=== PATIENT | male | born 1945 | race Caucasian/White ===

== ENCOUNTER → 2018-09-16 | Outpatient (CLI) | payer MEDICARE | LOC: CARD 11:13 → EDUNIT# 11:30 | PROVIDERS: ATTEND Internal Medicine Cardiovascular Disease | DX: I48.91 Unspecified atrial fibrillation (principal); I10 Essential (primary) hypertension; K21.9 Gastro-esophageal reflux disease without esophagitis; I08.1 Rheumatic disorders of both mitral and tricuspid valves; Z82.49 Family history of ischemic heart disease and other diseases of the circulatory system | CPT/HCPCS: 93306 ==

== ENCOUNTER 2018-10-06 09:59 | Outpatient (CLI) | payer MEDICARE ==
[~2018-10-06] VITALS: Ht 172.7 cm; Wt 90.7 kg
[2018-10-06 10:09] VITALS: BP 154/89
[2018-10-06] MEDS ORDERED: LEFL20TA18 PO (10:52)
[2018-10-06 11:11] LABS: BASOPHILS # (AUTO) 0.1 10^3/uL (0.0-0.1); BASOPHILS % (AUTO) 1 % (0-10); EOSINOPHILS # (AUTO) 0.2 10^3/uL (0.0-0.3); EOSINOPHILS % (AUTO) 3 % (0-10); HEMATOCRIT 40 % (40-54); HEMOGLOBIN 12.6 G/DL (13.3-17.7); LYMPHOCYTES # (AUTO) 2.2 X 10^3 (1.0-4.0); LYMPHOCYTES % (AUTO) 27 % (12-44); MEAN CORPUSCULAR HEMOGLOBIN 25 PG (25-34); MEAN CORPUSCULAR HGB CONC 32 G/DL (32-36); MEAN CORPUSCULAR VOLUME 78 FL (80-99); MONOCYTES # (AUTO) 1.2 X 10^3 (0.0-1.0); MONOCYTES % (AUTO) 14 % (0-12); NEUTROPHILS # (AUTO) 4.7 X 10^3 (1.8-7.8); NEUTROPHILS % (AUTO) 56 % (42-75); PLATELET COUNT 220 10^3/uL (130-400); RED BLOOD COUNT 5.12 10^6/uL (4.35-5.85); RED CELL DISTRIBUTION WIDTH 15.7 % (10.0-14.5); WHITE BLOOD COUNT 8.4 10^3/uL (4.3-11.0)
[2018-10-07] MEDS ORDERED: AMLO1CAP9 PO (13:16)
[2018-10-07] MEDS ORDERED: APIX5TAB PO (13:16)
[2018-10-07] MEDS ORDERED: HYDR-3923 PO (13:16)
[2018-10-07] MEDS ORDERED: CHOL20003 PO (13:16)
[2018-10-07] MEDS ORDERED: HYDR-3820 PO (13:16)
[2018-10-07] MEDS ORDERED: FINA5TAB6 PO (13:16)
[2018-10-07] MEDS ORDERED: ALPR0.5T PO (13:16)
[2018-10-07] MEDS ORDERED: ABAT250V IV (13:16)
[2018-10-07] MEDS ORDERED: METO-387 PO (13:16)
[2018-10-07] MEDS ORDERED: DEXL60CA PO (13:16)
[2018-10-07] MEDS ORDERED: TAMS0.4C2 PO (13:16)
[2018-10-07] MEDS ORDERED: PRED5TAB PO (13:16)
[2018-10-07] MEDS ORDERED: NALO12.5 PO (14:03)
[2018-10-07] MEDS ORDERED: LATA2.5D5 OU (14:03)
== END 2018-10-06 10:55 | disposition home or self-care (01) ==
LOC: PREOP 09:59
PROVIDERS: ATTEND Orthopaedic Surgery Orthopaedic Surgery of the Spine
DX: Z01.812 Encounter for preprocedural laboratory examination (principal); Z11.2 Encounter for screening for other bacterial diseases; M96.0 Pseudarthrosis after fusion or arthrodesis; I10 Essential (primary) hypertension
CPT/HCPCS: 36415; 85025; 86850; 86900; 86901; 87081

== ENCOUNTER 2018-10-12 05:55 | Inpatient (IN) | payer MEDICARE ==
[~2018-10-12] VITALS: Ht 172.7 cm; Wt 90.7 kg
[~2018-10-12 05:55] MED LIST: ABAT250V IV; ALPR0.5T PO; AMLO1CAP9 PO; APIX5TAB PO; CHOL20003 PO; DEXL60CA PO; FINA5TAB6 PO; HYDR-3820 PO; HYDR-3923 PO; LATA2.5D5 OU; LEFL20TA18 PO; METO-387 PO; NALO12.5 PO; PRED5TAB PO; TAMS0.4C2 PO
[2018-10-12] MEDS: LACTATED RINGERS 1,000 ML IV PRN ×2 (06:25→08:45)
[2018-10-12] MEDS ORDERED: fentaNYL INJECTION 100 MCG/2 ML AMP ONE ×2 (06:30→14:50)
[2018-10-12] MEDS ORDERED: MIDAZOLAM 2 MG/2 ML (VERSED) VIAL ONE (06:30)
[2018-10-12] MEDS ORDERED: DEXMEDETOMIDINE 200 MCG/2 ML (PRECEDEX) VIAL IV ONE ×3 (06:34→11:13)
[2018-10-12] MEDS ORDERED: ACETAMINOPHEN 325 MG TABLET PO PRN (06:45)
[2018-10-12] MEDS ORDERED: HYDROcodone/APAP 10 MG/325 MG (LORTAB) TAB PO PRN (06:45)
[2018-10-12] MEDS ORDERED: MILK OF MAGNESIA 400 MG/5 ML 30 ML UDC PO PRN (06:45)
--- OUTSIDE RECORDS SUMMARY | 2018-10-12 06:46 | XMS REPORT | Continuity of Care Document ---
Author Author [facility] Organization [facility] Address Unknown Phone Unavailable Allergies There is no data. Medications There is no data. Problems There is no data. Procedures There is no data. Results There is no data. Encounters ACCT No. Visit Date/Time Discharge Status Pt. Type Provider Facility Loc./Unit Complaint [id number] 11/07/2014 14:18:41 11/07/2014 23:59:59 CLS Outpatient Donna Albrecht [id number] 02/03/2018 10:45:13 02/03/2018 23:59:59 DIS Outpatient Holley Aldrich [facility] [id number] 01/06/2018 08:37:26 01/06/2018 23:59:59 DIS Outpatient Holley Aldrich [facility] [id number] 05/27/2017 13:55:40 05/27/2017 23:59:59 DIS Outpatient Holley Aldrich [facility]
[2018-10-12] MEDS: MULTIVIT W/MINERALS TAB (THERAGRAN M) PO SCH (07:00)
[2018-10-12] MEDS ORDERED: NALOXEGOL OXALATE 12.5 MG PO PRN (07:00)
[2018-10-12] MEDS ORDERED: CLINDAMYCIN 600 MG/50 ML IVPB 50 ML IV ONE (07:00)
[2018-10-12] MEDS ORDERED: morphine INJ 10 MG/ML 1ML (SYR OR VIAL) IVP PRN (07:00)
[2018-10-12] MEDS ORDERED: GENTAMICIN 40 MG/ML 2 ML INJ SDV ONE (07:04)
[2018-10-12] MEDS ORDERED: VANCOMYCIN 1000 MG/VIAL ONE (07:04)
[2018-10-12] MEDS ORDERED: proPOfol 200 MG/20 ML (DIPRIVAN) VIAL IV ONE (08:29)
[2018-10-12] MEDS ORDERED: SUCCINYLCHOLINE INJ 100 MG/5 ML SYR ONE (08:29)
[2018-10-12] MEDS ORDERED: ROCURONIUM 10 MG/ML 5 ML SYRINGE IV ONE (08:29)
[2018-10-12] MEDS ORDERED: LIDOCAINE PF 2% 5 ML (XYLOCAINE) VIAL ONE (08:29)
[2018-10-12] MEDS ORDERED: ONDANSETRON 4 MG/2 ML (SDV) Z0FRAN ONE (08:29)
[2018-10-12] MEDS ORDERED: ISOFLURANE (FORANE) 15 ML/15 MIN INHALATION ONE ×14 (08:30→11:31)
[2018-10-12] MEDS ORDERED: [UNRECOGNIZED DRUG - OTHER] PO SCH (09:00)
[2018-10-12] MEDS: FAMOTIDINE 20 MG (PEPCID) TABLET PO SCH ×2 (09:00→20:22)
[2018-10-12] MEDS ORDERED: NON-FORMULARY MEDICATION 1 EA EA (Hydralazine HCl 25 MG) PO SCH (09:00)
[2018-10-12] MEDS ORDERED: BENAZEPRIL PO SCH (09:00)
[2018-10-12] MEDS ORDERED: NON-FORMULARY MEDICATION 1 EA EA (Dexlansoprazole (Dexilant) 60 MG) PO SCH (09:00)
[2018-10-12] MEDS ORDERED: AMLODIPINE BESYLATE PO SCH (09:00)
[2018-10-12] MEDS ORDERED: LACTATED RINGERS 2,000 ML IV ONE (11:31)
--- NOTE | 2018-10-12 11:49 | Progress Note-Post Operative ---
Post-Operative Progess Note Surgeon (s)/Roustabout Crew Pusher (s) Surgeon MERCY JOHNSON MD Roustabout Crew Pusher: RIANA Garrett Pre-Operative Diagnosis Lumbar Non-union, L2 fracture Post-Operative Diagnosis Same Procedure & Operative Findings Date of Procedure 10/12/18 Procedure Performed/Findings Posterior/Lateral/Posterior Revision spinal fusion. Anesthesia Type GETA Estimated Blood Loss Estimated blood loss (mL): 300 Specimens/Packing Specimens Removed None MERCY JOHNSON MD Oct 12, 2018 11:48
[2018-10-12] MEDS ORDERED: MEPERIDINE (DEMEROL) INJ 50 MG/ML IVP ONE (12:00)
[2018-10-12] MEDS ORDERED: fentaNYL INJECTION 100 MCG/2 ML AMP IVP ONE (12:00)
[2018-10-12] MEDS ORDERED: morphine INJ 10 MG/ML 1ML (SYR OR VIAL) IVP ONE (12:00)
[2018-10-12] MEDS ORDERED: ONDANSETRON 4 MG/2 ML (SDV) Z0FRAN IVP PRN (12:00)
[2018-10-12] MEDS: NS IV 1000 ML 1,000 ML IV SCH ×2 (14:16→16:49)
[2018-10-12] MEDS: fentaNYL INJECTION 100 MCG/2 ML AMP IVP PRN ×4 (14:57→22:37)
[2018-10-12] MEDS: ONDANSETRON 4 MG/2 ML (SDV) Z0FRAN IV PRN (14:57)
[2018-10-12] MEDS: amLODIPine 10 MG (NORVASC) TAB PO SCH (15:00)
[2018-10-12] MEDS: lisINopril 20 MG (PRINIVIL) TABLET PO SCH (15:00)
[2018-10-12] MEDS ORDERED: FLU QUADRIvalent (5+ YOA) 2018-2019 (AFLURIA) 0.5 ML IM ONE (15:15)
--- NOTE | 2018-10-12 15:27 | Diagnostic Imaging Report ---
Indication: Lumbar spine surgery. Fluoroscopy was provided in the OR during lumbar spine surgery. 33 seconds of fluoroscopy was utilized. Images demonstrate posterior spinal fixation rods and pedicle screws extending from L2-S2. Alignment appears normal. Impression: Fluoroscopy for lumbar spine surgery. Dictated by: Dictated on workstation # [id number]
[2018-10-12 16:05] VITALS: BP 105/66
[2018-10-12] MEDS: CLINDAMYCIN 600 MG/50 ML IVPB 50 ML IV SCH (16:41)
[2018-10-12] MEDS: FINASTERIDE (PROSCAR) 5 MG TAB PO SCH (16:42)
[2018-10-12] MEDS: TAMSULOSIN 0.4 MG (FLOMAX) CAP PO SCH (17:54)
[2018-10-12] MEDS: predniSONE 5 MG TAB PO SCH (17:54)
[2018-10-12] MEDS: PANTOPRAZOLE 40 MG (PROTONIX) TAB PO SCH (17:54)
[2018-10-12 20:05] VITALS: BP 105/66
[2018-10-12] MEDS: ALPRAZolam 0.5 MG (XANAX) TAB PO SCH (20:22)
[2018-10-12] MEDS: LATANOPROST 0.005% (XALATAN) OPHTH SOLN 2.5 ML OU SCH (20:22)
[2018-10-12] MEDS: hydrALAZINE (APRESOLINE) 25 MG TAB PO SCH (20:22)
--- NOTE | 2018-10-12 20:50 | OPERATIVE REPORT ---
DATE OF SERVICE: 10/12/2018 PREOPERATIVE DIAGNOSES: Lumbar nonunion, mechanical complication of internal orthopedic hardware at L2 fracture, lumbar stenosis, lumbar radiculopathy, persistent lumbar pain. POSTOPERATIVE DIAGNOSES: Lumbar nonunion, mechanical complication of internal orthopedic hardware at L2 fracture, lumbar stenosis, lumbar radiculopathy, persistent lumbar pain. PROCEDURES PERFORMED: 1. Revision posterolateral posterior spinal fusion. 2. Reinsertion of spinal fixation devices L2 to the pelvis. 3. L2-3 anterolateral transpsoas interbody fusion via left-sided approach. 4. L2-3 interbody cage instrumentation. 5. L2-3 anterior plate instrumentation. 6. Allograft for spine surgery, morselized. 7. Revision L2-3 posterior spinal fusion. 8. Exploration of L2-3 posterior spinal fusion. DATE AND TIME OF SURGERY: Please see anesthesia record. IMPLANTS USED: Medtronic Solera posterior pedicle screws, Medtronic tether band system, K2M Argonne cage and caiman plate, K2M Vesuvius bone graft. SURGEON: Mercy Saez MD LGSW: JENA Garrett. ROLE OF PIG BREEDER: Aid in retraction of the procedure, aid in implantation incisional closure. ANESTHESIA: General endotracheal. ESTIMATED BLOOD LOSS: 300 mL. INTRAVENOUS FLUIDS: Please see anesthesia record. ANTIBIOTICS: Ancef. COMPLICATIONS: None. INDICATIONS FOR PROCEDURE: The patient is a 72-year-old male previous fusion breakdown, nonunion fracture through his pedicles and persistent motion pain, failed conservative therapy, desires operative treatment. DESCRIPTION OF PROCEDURE: The patient was taken to the preoperative holding area and brought back to the operative suite. After adequate induction of general anesthetic, preoperative antibiotics placed. Spinal monitoring was carefully placed prone on the Lewis table, careful padding to all extremities, sterilely prepped and draped posterior thoracic spine. A small incision was made at the top and the superior aspect of the hardware was exposed and blocking screws removed from L2 and L3 bilaterally and the wound was closed provisionally and the patient placed in the lateral decubitus position left side up, standard transpsoas approach to the L2-3 level was carried out. Retractor was docked. Disk was prepped. Trial spacer was utilized and then a 12 tall, 50 long, 22 wide K2M Argonne cage filled with Allograft bone was impacted into position after satisfactory disk preparation. A 2-hole caiman plate was then affixed to the spine with 40 mm 5.5 locking screws. Locking mechanism was deployed and assured. Wound was copiously irrigated. The lateral wound was closed. The patient was turned back prone on a Lewis table, careful padding to all extremities and the entire wound was opened from the pelvis up to L2 where again expose, all the blocking screws were removed. The sima was removed. The L2 screws were removed bilaterally and the fusion was explored. There was a persistent nonunion present. TPs were again exposed and new trajectories instead of up and medial trajectory. A caudal and medial trajectory on the superior aspect of the pedicle was utilized to obtain a new pedicle tract and steer away from the nerve root. Once all screws were in place in L2 bilaterally, imaging was obtained. New rods were fit and fashioned and then the remaining L2 lamina was utilized for a sublaminar tether band x2, which was affixed to the sima as well. Once all final tightening was performed, high speed delmy was used to decorticate the 2-3 level and allograft bone was packed for the fusion portion as well. Deep drain was placed. Wound was closed in layers. The patient transferred to recovery room in stable condition and tolerated the procedure well. Job ID: [id number] DocumentID: [id number] Dictated Date: 10/12/2018 11:53:34 Mirror Maker Date: 10/12/2018 20:49:38 Dictated By: MERCY SAEZ MD
[2018-10-12] MEDS: HYDROcodone/APAP 5 MG/325 MG (LORTAB) TAB PO PRN (21:59)
[2018-10-13] VITALS (7 sets, daily range): BP systolic 97–131; BP diastolic 52–71
[2018-10-13] MEDS: CLINDAMYCIN 600 MG/50 ML IVPB 50 ML IV SCH ×2 (00:38→06:21)
[2018-10-13] MEDS: NS IV 1000 ML 1,000 ML IV SCH ×3 (00:43→20:55)
[2018-10-13] MEDS: fentaNYL INJECTION 100 MCG/2 ML AMP IVP PRN ×5 (00:43→11:50)
[2018-10-13] MEDS: PANTOPRAZOLE 40 MG (PROTONIX) TAB PO SCH (06:22)
[2018-10-13] MEDS: MULTIVIT W/MINERALS TAB (THERAGRAN M) PO SCH (06:22)
[2018-10-13 06:37] LABS: HEMOGLOBIN 10.3 G/DL (13.3-17.7); MEAN PLATELET VOLUME 11.8 FL (7.4-10.4); RED BLOOD COUNT 4.17 10^6/uL (4.35-5.85); RED CELL DISTRIBUTION WIDTH 15.2 % (10.0-14.5); WHITE BLOOD COUNT 10.3 10^3/uL (4.3-11.0)
--- NOTE | 2018-10-13 06:55 | Progress Note (SOAP) ---
Subjective Date Seen by a Provider: Oct 13, 2018 Time Seen by a Provider: 06:53 Subjective/Events-last exam Pain moderate, feels ok overall Objective Exam Vital Signs Date Time Temp Pulse Resp B/P (MAP) Pulse Ox O2 Delivery O2 Flow Rate FiO2 10/13/18 04:00 98.8 99 18 121/69 (86) 96 Nasal Cannula 3.00 10/13/18 00:00 100.0 100 18 124/70 (88) 98 Nasal Cannula 3.00 10/12/18 21:00 98 2.00 10/12/18 20:05 96.6 73 18 105/66 (79) 100 Nasal Cannula 3.00 10/12/18 19:47 Nasal Cannula 3.00 10/12/18 16:05 96.6 73 18 105/66 (79) 100 Nasal Cannula 3.00 10/12/18 13:00 100 3.00 I & O 10/13/18 07:00 Intake Total 2480 ml Output Total 1450 ml Balance 1030 ml Capillary Refill : General Appearance: No Apparent Distress Respiratory: No Accessory Muscle Use, No Respiratory Distress Cardiovascular: Regular Rate, Rhythm, Normal Peripheral Pulses Gastrointestinal: non tender, soft Extremity: Normal Capillary Refill, No Calf Tenderness Neurologic/Psychiatric: Alert, Oriented x3, No Motor/Sensory Deficits Results Lab Laboratory Tests 10/13/18 05:40: White Blood Count 10.3, Red Blood Count 4.17L, Hemoglobin 10.3L, Hematocrit 33L , Mean Corpuscular Volume 78L, Mean Corpuscular Hemoglobin 25, Mean Corpuscular Hemoglobin Concent 32, Red Cell Distribution Width 15.2H, Platelet Count 189, Mean Platelet Volume 11.8H Assessment/Plan Assessment/Plan Assess & Plan/Chief Complaint S/P Revision L2-Pelvis revision fusion Up with PT Post op spine fusion protocol Clinical Quality Measures DVT/VTE Risk/Contraindication: Risk Factor Score Per Nursin RFS Level Per Nursing on Admit: 4+=Very High MERCY JOHNSON MD Oct 13, 2018 06:55
[2018-10-13 07:04] LABS: ALANINE AMINOTRANSFERASE 16 U/L (0-55); ALBUMIN 3.5 GM/DL (3.2-4.5); ALKALINE PHOSPHATASE 71 U/L (40-136); BILIRUBIN,TOTAL 0.9 MG/DL (0.1-1.0); BUN/CREATININE RATIO 13; CALCIUM 8.3 MG/DL (8.5-10.1); CARBON DIOXIDE 22 MMOL/L (21-32); CHLORIDE 107 MMOL/L (98-107); CREATININE SERUM 0.98 MG/DL (0.60-1.30); GFR ESTIMATED > 60; GLUCOSE 110 MG/DL (70-105); POTASSIUM 3.9 MMOL/L (3.6-5.0); SODIUM 137 MMOL/L (135-145); TOTAL PROTEIN 5.6 GM/DL (6.4-8.2)
[2018-10-13] MEDS: FAMOTIDINE 20 MG (PEPCID) TABLET PO SCH ×2 (09:20→20:55)
[2018-10-13] MEDS: FINASTERIDE (PROSCAR) 5 MG TAB PO SCH (09:20)
[2018-10-13] MEDS: lisINopril 20 MG (PRINIVIL) TABLET PO SCH (09:20)
[2018-10-13] MEDS: ONDANSETRON 4 MG/2 ML (SDV) Z0FRAN IV PRN ×2 (09:20→16:09)
[2018-10-13] MEDS: predniSONE 5 MG TAB PO SCH (09:20)
[2018-10-13] MEDS: hydrALAZINE (APRESOLINE) 25 MG TAB PO SCH ×2 (09:21→20:55)
[2018-10-13] MEDS: amLODIPine 10 MG (NORVASC) TAB PO SCH (09:21)
[2018-10-13] MEDS: HYDROcodone/APAP 5 MG/325 MG (LORTAB) TAB PO PRN ×3 (09:21→21:03)
--- NOTE | 2018-10-13 09:31 | Diagnostic Imaging Report ---
EXAM: LUMBAR SPINE - 2-3 VIEWS. INDICATION: Low back pain. Prior lumbar spine surgery. COMPARISON: None. FINDINGS: There are five lumbar type vertebral bodies. There are post operative findings of bilateral sima and pedicle screw fixation with laminectomies spanning L2 through the sacroiliac joints. There are interbody devices at L2-L3, L4-L5, and L5-S1 with left lateral fixation at the L2-L3 level. The L5-S1 interbody device is oriented anteriorly in the disc space protruding approximately 9 mm anterior to the L5 vertebral body. The hardware components are intact. Normal alignment. IMPRESSION: Extensive post operative findings as detailed above in the lumbar spine. There is an anterior interbody device at L5-S1 which is oriented approximately 9 mm anterior to the L5 vertebral body. Dictated by: Dictated on workstation # [id number]
--- NOTE | 2018-10-13 10:02 | Consultation-Hospitalist ---
HPI History of Present Illness: HPI/Chief Complaint CC: Medical management following uncomplicated L-spine surgery by Dr Saez POD # 1 HPI: This is a 72yoWM clinic patient of Dr Bliss known to me from consultation in recovery room at [facility] in [place] 3 weeks ago when he experienced new onset AF rate controlled during anesthesia induction that caused the surgery to be aborted before started. I diagnosed new onset AF and conferred with Dr Graves and he saw the patient in his clinic that day, placed him on Toprol and Eliquis and ordered an ECHO which did not reveal any critical information so he was rescheduled at [facility] due to higer risk for AF w/RVR and would be close to Cardiology. Patient is doing well and is currently in chronic AF and I have consulted Dr Graves. Pt feels well and pain is controlled. Catheter is in place and is at the bedside. Source: patient Exam Limitations: no limitations Date Seen 10/13/18 Attending Physician Kaiden Saez MD PCP Alessandro Bliss MD Referring Physician Date of Admission Oct 12, 2018 at 05:55 Home Medications & Allergies Home Medications Reviewed patient Home Medication Reconciliation performed by pharmacy medication reconciliations oil heat technician and/or nursing. Patients Allergies have been reviewed. Allergies Allergies Coded Allergies Sulfa (Sulfonamide Antibiotics) (Verified Allergy, Unknown, HIVES, 10/07/18) aspirin (Verified Allergy, Unknown, RASH, 10/07/18) cephalexin (Verified Allergy, Unknown, ANAPHYLAXIS, 10/07/18) oxycodone (Verified Allergy, Unknown, vomiting, 10/07/18) Past Xdehjun-Nqvupa-Ddsozh Hx Past Med/Social Hx: Reviewed Nursing Past Med/Soc Hx, Reviewed and Corrections made Patient Social History Marrital Status: Employed/Student: retired Alcohol Use: Rarely Uses Number of Drinks Today: 0 Recreational Drug Use: No Smoking Status: Never a Smoker Physical Abuse Screen: No Sexual Abuse: No Recent Foreign Travel: No Contact w/other who traveled: No Recent Hopitalizations: No Recent Infectious Disease Expo: No Immunizations Up To Date Date of Pneumonia Vaccine: Oct 06, 2016 Seasonal Allergies Seasonal Allergies: Yes Past Medical History Surgeries: Orthopedic Respiratory: Sleep Apnea Currently Using CPAP: No Cardiac: Atrial Fibrillation, High Cholesterol, Hypertension Neurological: Neuropathy Genitourinary: Benign Prostatic Hyperpl Musculoskeletal: Arthritis, Rheumatoid Arthritis, Chronic Back Pain Cancer: Skin History of Blood Disorders: No Family History Arthritis 19 MOTHER Asthma 19 FATHER Dementia 19 FATHER Hypertension 19 FATHER Myocardial infarction 19 FATHER Parkinson's disease 19 FATHER Hypertension Review of Systems Constitutional: see HPI, weakness EENTM: no symptoms reported Respiratory: no symptoms reported Cardiovascular: no symptoms reported Gastrointestinal: no symptoms reported Genitourinary: no symptoms reported Musculoskeletal: back pain Skin: no symptoms reported Psychiatric/Neurological: Anxiety, Depressed All Other Systems Reviewed Negative Unless Noted: Yes Physical Exam Physical Exam Vital Signs Vital Signs - First Documented 10/12/18 10/12/18 13:00 16:05 Temp 96.6 Pulse 73 Resp 18 B/P (MAP) 105/66 (79) Pulse Ox 100 O2 Delivery Nasal Cannula O2 Flow Rate 3.00 Capillary Refill : Height, Weight, BMI Height: 5'8.00" Weight: 200lbs. 0.0oz. 90.644894by; 30.4 BMI Method: General Appearance: No Apparent Distress, WD/WN, Chronically ill, Other (up in chair) Eyes: Bilateral Eye Normal Inspection, Bilateral Eye PERRL HEENT: PERRL/EOMI, Normal ENT Inspection, Pharynx Normal Neck: Full Range of Motion, Normal Inspection, Non Tender, Supple, Carotid Bruit Respiratory: Chest Non Tender, Lungs Clear, Normal Breath Sounds, No Accessory Muscle Use, No Respiratory Distress Cardiovascular: No Edema, No Gallop, No JVD, No Murmur, Normal Peripheral Pulses, Irregularly Irregular Gastrointestinal: Normal Bowel Sounds, No Organomegaly, No Pulsatile Mass, Non Tender, Soft Back: Normal Inspection, No CVA Tenderness, No Vertebral Tenderness Extremity: Normal Capillary Refill, Normal Inspection, Normal Range of Motion, Non Tender, No Calf Tenderness, No Pedal Edema Neurologic/Psychiatric: Alert, Oriented x3, No Motor/Sensory Deficits, Normal Mood/Affect Skin: Normal Color, Warm/Dry Lymphatic: No Adenopathy Results Results/Procedures Labs Laboratory Tests 10/13/18 05:40 Patient resulted labs reviewed. Assessment/Plan Assessment and Plan Assess & Plan/Chief Complaint Assessment: s/p uncomplicated L-spine surgery per Dr Saez POD # 1 Chronic AF new dx 3 weeks ago resulting in aborting surgery after anesthesia induction documented AF HTN RA maintained on immunosuppressives and steroids BPH GERD Anxiety Plan: Consult Dr Graves Hold anticoagulation due to spinal hematoma risk Monitor AF on Tely Monitor labs Assure urination ok after cath DC in near future Diagnosis/Problems Diagnosis/Problems (1) Status post lumbar spine surgery for decompression of spinal cord Status: Acute (2) Atrial fibrillation Status: Chronic Qualifiers: Atrial fibrillation type: chronic Qualified Codes: I48.2 - Chronic atrial fibrillation (3) BPH (benign prostatic hyperplasia) Status: Chronic Qualifiers: Lower urinary tract symptom presence: unspecified whether lower urinary tract symptoms present Qualified Codes: N40.0 - Benign prostatic hyperplasia without lower urinary tract symptoms (4) Rheumatoid arthritis Status: Chronic Qualifiers: Rheumatoid arthritis location: unspecified site Rheumatoid factor presence : unspecified presence Qualified Codes: M06.9 - Rheumatoid arthritis, unspecified (5) Immunosuppressed status Status: Chronic (6) GERD (gastroesophageal reflux disease) Status: Chronic Qualifiers: Esophagitis presence: without esophagitis Qualified Codes: K21.9 - Gastro- esophageal reflux disease without esophagitis (7) Anxiety Status: Chronic (8) Flaherty catheter in place Status: Acute (9) Anemia, chronic disease Status: Chronic Clinical Quality Measures DVT/VTE Risk/Contraindication: Risk Factor Score Per Nursin RFS Level Per Nursing on Admit: 4+=Very High ABDIEL DELGADILLO DO Oct 13, 2018 10:02
--- NOTE | 2018-10-13 10:58 | Physical Therapy Evaluation ---
PT Evaluation-General Medical Diagnosis Admission Date Oct 12, 2018 at 05:55 Medical Diagnosis: Non-union, L2 spinal fusion revision Onset Date: Oct 12, 2018 Therapy Diagnosis Therapy Diagnosis: General weakness Height/Weight Height (Feet): 5 Height (Inches): 8.00 Weight (Pounds): 200 Weight (Ounces): 0.0 Precautions Precautions/Isolations: Fall Prevention, Standard Precautions Weight Bear Status Right Lower Extremity: Right Weight Bearing/Tolerated Left Lower Extremity: Left Weight Bearing/Tolerated Referral Physician: Nadja Reason for Referral: Evaluation/Treatment Medical History Current History Patient had spinal revision of L2 completed on 10/13/18. Reviewed History: Yes Social History Home: Single Level Current Living Status: Spouse Entry Into Home: Stairs With Railing PT Steps Into Home: 2 PT Steps Inside Home: 0 Prior/Core FIM Prior Level of Function Therapy Code Descriptions/Definitions Functional Rudyard Measure: 0=Not Assessed/NA 4=Minimal Assistance 1=Total Assistance 5=Supervision or Setup 2=Maximal Assistance 6=Modified Rudyard 3=Moderate Assistance 7=Complete Rudyard Therapy Quality Codes: 6 Independent with activity with or without an assistive device 5 Patient requires set up or clean up by helper. Patient completes activity by themselves 4 Supervision or touching assist (CGA). [place] provide cues , steadying assist 3 The helper provides less than half the effort to complete the activity 2 The helper provides more than half the effort to complete the activity 1 Dependent. The helper does all the effort to complete an activity 7 Patient refused to complete or attempt activity 9 The patient did not perform the activity before the current illness or injury 88 Not attempted due to Medical conditions or safety concerns Functional Abilities and Goals: Independent: Patient completed the activities by him/herself, with or without an assistive device, with no assistance from a helper. Needed Some Help: Patient needed partial assistance from another person to complete activities. Dependent: A helper completed the activities for the patient. Unknown: Not Applicable: Bed Mobility: 7 Transfers (B,C,W/C) (FIM): 7 Gait: 7 Stairs: 7 Indoor Mobility (Ambulation): Independent Stairs: Independent Prior Devices Use: None Prior Device Use: sinlge point cane PT Evaluation-Current Subjective Pt awake in chair visiting with when PT arrived. Pt agreed to PT evaluation. Pain Numeric Pain Scale: 0-No Pain Location: No Pain Reported Location Body Site: Back Pain Description: Acute Objective Patient Orientation: Normal For Age Problem Solving: Fair Attachments: SCD's, Flaherty Catheter, IV ROM/Strength ROM Upper Extremities WNL ROM Lower Extremities WNL Strength Upper Extremities WNL Strength Lower Extremities 4+/5 BLE strength L Hip flexor 3/5 gross motor strength. Integumentary/Posture Bowel Incontinence: No Bladder Incontinence: Flaherty Cath Neuromuscular (Tone, Coordination, Reflexes) grossly intact Sensory Vision: Functional Hearing: Functional Sensation Right Upper Extremit: Intact Sensation Left Upper Extremity: Intact Sensation Right Lower Extremit: Intact Sensation Left Lower Extremity: Intact Transfers Therapy Code Descriptions/Definitions Functional Rudyard Measure: 0=Not Assessed/NA 4=Minimal Assistance 1=Total Assistance 5=Supervision or Setup 2=Maximal Assistance 6=Modified Rudyard 3=Moderate Assistance 7=Complete Rudyard Transfers (B, C, W/C) (FIM): 5 Scootin Sit to/from Stand: 5 Gait Mode of Locomotion: Walk Anticipated Mode of Locomotion: Walk Balance Sitting Static: Good Sitting Dynamic: Good Standing Static: Good Standing Dynamic: Good Assessment/Needs Pt has 4+/5 BLE strength with the L hip flexor having 3/5. Patient states his strength feels better since surgery. Patient is able to transfer from sit/stand with SBA. Patient declined to walk at the time being due to nausea like symptoms from surgery and limiting treatment as well. He will continue therapy to maintain current level of function. Rehab Potential: Fair PT Chcf Goals Chcf Goals PT Chcf Goals Time Frame: Oct 23, 2018 Transfers (B,C,W/C) (FIM): 6 Gait (FIM): 6 Gait distance (FIM): 3=150 ft Distance: 150' Gait Level of Assist: 6 Gait Assistive Device: FWW PT Plan Problem List Problem List: Activity Tolerance, Functional Strength, Safety, Balance, Gait, Transfer, Bed Mobility, ROM Treatment/Plan Treatment Plan: Continue Plan of Care Treatment Plan: Bed Mobility, Concurrent Therapy, Functional Activity Maribel, Functional Strength, Gait, Safety, Therapeutic Exercise, Transfers Treatment Duration: Oct 23, 2018 Frequency: 11 times per week Estimated Hrs Per Day: .5 hour per day Patient and/or Family Agrees t: Yes Time/GCodes Time In: 1017 Time Out: 1027 Total Billed Treatment Time: 10 Total Billed Treatment 1 Visit EVL - 10' G Codes Necessary: No DARIANA WATT PT Oct 13, 2018 10:58
--- NOTE | 2018-10-13 12:22 | Consultation-Cardiology ---
HPI-Cardiology Cardiology Consultation Date of Consultation 10/13/18 Date of Admission Time Seen by Provider: 12:17 Indication: atrial fibrillation HPI 72 years old gentleman who underwent spine surgery, last month was noted to be in atrial fibrillation during anesthesia induction. He was referred to my office for evaluation, underwent echocardiogram which showed normal LV size and function. Mitral and tricuspid regurgitation and pulmonary hypertension. Currently doing well recovering from surgery, denied any chest pain. No palpitation. No sig. Or near syncopal episodes Home Medications & Allergies Allergies: Coded Allergies: Sulfa (Sulfonamide Antibiotics) (Verified Allergy, Unknown, HIVES, ) aspirin (Verified Allergy, Unknown, RASH, 10/07/18) cephalexin (Verified Allergy, Unknown, ANAPHYLAXIS, 10/07/18) oxycodone (Verified Allergy, Unknown, vomiting, 10/07/18) Home Medication List Reviewed: Yes [id number] Hx Patient Social History Marital Status: Employed/Student: retired Alcohol Use: Rarely Uses Recreational Drug Use: No Smoking Status: Never a Smoker Recent Foreign Travel: No Recent Infectious Disease Expo: No Recent Hopitalizations: No Physical Abuse Screen: No Sexual Abuse: No Immunizations Up To Date Date of Pneumonia Vaccine: Oct 06, 2016 Past Medical History past medical history as described below Family Medical History Family History: Arthritis 19 MOTHER Asthma 19 FATHER Dementia 19 FATHER Hypertension 19 FATHER Myocardial infarction 19 FATHER Parkinson's disease 19 FATHER Review of Systems Constitutional: no symptoms reported, see HPI EENTM: see HPI Respiratory: see HPI; No cough, No dyspnea on exertion, No hemoptysis, No orthopnea, No phlegm, No short of breath, No stridor, No wheezing, No other Cardiovascular: see HPI; No chest pain, No edema, No Hx of Intervention, No palpitations, No syncope, No vascular heart diseas, No other Gastrointestinal: no symptoms reported, see HPI Genitourinary: no symptoms reported, see HPI Musculoskeletal: see HPI, back pain, joint pain Skin: no symptoms reported, see HPI Psychiatric/Neurological: No Symptoms Reported, See HPI Reviewed Test Results Reviewed Test Results Lab Laboratory Tests Test 10/13/18 05:40 Range/Units White Blood Count 10.3 4.3-11.0 10^3/uL Red Blood Count 4.17 L 4.35-5.85 10^6/uL Hemoglobin 10.3 L 13.3-17.7 G/DL Hematocrit 33 L 40-54 % Mean Corpuscular Volume 78 L 80-99 FL Mean Corpuscular Hemoglobin 25 25-34 PG Mean Corpuscular Hemoglobin Concent 32 32-36 G/DL Red Cell Distribution Width 15.2 H 10.0-14.5 % Platelet Count 189 130-400 10^3/uL Mean Platelet Volume 11.8 H 7.4-10.4 FL Sodium Level 137 135-145 MMOL/L Potassium Level 3.9 3.6-5.0 MMOL/L Chloride Level 107 98-107 MMOL/L Carbon Dioxide Level 22 21-32 MMOL/L Anion Gap 8 5-14 MMOL/L Blood Urea Nitrogen 13 7-18 MG/DL Creatinine 0.98 0.60-1.30 MG/DL Estimat Glomerular Filtration Rate > 60 BUN/Creatinine Ratio 13 Glucose Level 110 H 70-105 MG/DL Calcium Level 8.3 L 8.5-10.1 MG/DL Corrected Calcium 8.7 8.5-10.1 MG/DL Total Bilirubin 0.9 0.1-1.0 MG/DL Aspartate Amino Transf (AST/SGOT) 22 5-34 U/L Alanine Aminotransferase (ALT/SGPT) 16 0-55 U/L Alkaline Phosphatase 71 40-136 U/L Total Protein 5.6 L 6.4-8.2 GM/DL Albumin 3.5 3.2-4.5 GM/DL Physical Exam Vital Signs Vital Signs - First Documented 10/12/18 10/12/18 13:00 16:05 Temp 96.6 Pulse 73 Resp 18 B/P (MAP) 105/66 (79) Pulse Ox 100 O2 Delivery Nasal Cannula O2 Flow Rate 3.00 Capillary Refill : Height, Weight, BMI Height: 5'8.00" Weight: 200lbs. 0.0oz. [id number]; 30.4 BMI Method: General Appearance: No Apparent Distress, WD/WN Eyes: Bilateral Eye Normal Inspection, Bilateral Eye PERRL, Bilateral Eye EOMI HEENT: PERRL/EOMI, TMs Normal, Normal ENT Inspection, Pharynx Normal Neck: Full Range of Motion, Normal Inspection, Non Tender, Supple, Carotid Bruit Respiratory: Chest Non Tender, Lungs Clear, Normal Breath Sounds, No Accessory Muscle Use, No Respiratory Distress Cardiovascular: No Edema, No Gallop, No JVD, No Murmur, Normal Peripheral Pulses, Irregularly Irregular Gastrointestinal: Normal Bowel Sounds, No Organomegaly, No Pulsatile Mass, Non Tender, Soft Back: Normal Inspection, Other (status post spine surgery) Extremity: Normal Capillary Refill, Normal Inspection, Normal Range of Motion, Non Tender, No Calf Tenderness, No Pedal Edema Neurologic/Psychiatric: Alert, Oriented x3, No Motor/Sensory Deficits, Normal Mood/Affect Skin: Normal Color, Warm/Dry Lymphatic: No Adenopathy A/P-Cardiology Admission Diagnosis Chronic atrial fibrillation Hypertension Back pain GERD Assessment/Plan Status post L2 revision and fusion surgery, procedure done on October 13, 2018 Paroxysmal atrial fibrillation, new onset during anesthesia induction early September. Still currently in atrial fibrillation with controlled rate. Continue to monitor heart rate, placed him on telemetry. Patient was maintained on Eliquis, continue to hold for now until cleared by orthopedic surgeon to restart the medication Hypertension, restart medication monitor blood pressure Osteoarthritis, spinal stenosis, had surgery to his spine in November 2017, was scheduled for surgery today which was aborted after induction of anesthesia due to atrial fibrillation. Anxiety. Managed by primary care physician BPH, managed by primary care physician next Suspicion of sleep apnea, managed by primary care physician Gastroesophageal reflux disease Clinical Quality Measures DVT/VTE Risk/Contraindication: Risk Factor Score Per Nursin RFS Level Per Nursing on Admit: 4+=Very High BENI GILLILAND MD Oct 13, 2018 12:22
--- NOTE | 2018-10-13 13:14 | Anesthesia-General Post-Op ---
General Patient Condition Mental Status/LOC: Same as Preop Cardiovascular: Satisfactory Nausea/Vomiting: Absent Respiratory: Satisfactory Pain: Controlled (Pt is having pain, which is expected after this surgery.) Complications: Absent Post Op Complications Complications None Follow Up Care/Instructions Patient Instructions None needed. Anesthesia/Patient Condition Patient Condition Patient is doing well, no complaints, stable vital signs, no apparent adverse anesthesia problems. LUZMARIA HICKEY DO Oct 13, 2018 13:14
--- NOTE | 2018-10-13 14:00 | Physical Therapy Daily Note ---
PT Daily Note-Current Subjective Pt awake in bed watching tv when PT arrived. Pt agreed to get up and walk with PT. Pain Numeric Pain Scale: 0-No Pain Location: No Pain Reported Mental Status Patient Orientation: Normal For Age Attachments: Flaherty Catheter, IV Transfers Therapy Code Descriptions/Definitions Functional [place] Measure: 0=Not Assessed/NA 4=Minimal Assistance 1=Total Assistance 5=Supervision or Setup 2=Maximal Assistance 6=Modified [place] 3=Moderate Assistance 7=Complete [place] Therapy Quality Codes: 6 Independent with activity with or without an assistive device 5 Patient requires set up or clean up by helper. Patient completes activity by themselves 4 Supervision or touching assist (CGA). [place] provide cues , steadying assist 3 The helper provides less than half the effort to complete the activity 2 The helper provides more than half the effort to complete the activity 1 Dependent. The helper does all the effort to complete an activity 7 Patient refused to complete or attempt activity 9 The patient did not perform the activity before the current illness or injury 88 Not attempted due to Medical conditions or safety concerns Transfers (B, C, W/C) (FIM): 5 Scootin Rollin Supine to/from Sit: 5 Sit to/from Stand: 5 Weight Bearing Right Lower Extremity: Right Weight Bearing/Tolerated Left Lower Extremity: Left Weight Bearing/Tolerated Gait Training Gait (FIM): 5 Distance (FIM): 3=150 ft Distance: 250' Gait Level of Assist: 5 Gait Persons Needed: 1 Gait Assistive Device: FWW Assessment Pt is able to ambulate 250' with a FWW requiring SBA. Pt did not show any signs of fatigue during ambulation and will continue therapy to improve overall endurance. Patient returned to bed and was able to reposition self as needed. PT Collection Systems Modeler Goals Fdc Goals PT Collection Systems Modeler Goals Time Frame: Oct 23, 2018 Transfers (B,C,W/C) (FIM): 6 Gait (FIM): 6 Gait distance (FIM): 3=150 ft Distance: 150' Gait Level of Assist: 6 Gait Assistive Device: FWW PT Plan Problem List Problem List: Activity Tolerance, Functional Strength, Safety, Balance, Gait, Transfer, Bed Mobility Treatment/Plan Treatment Plan: Continue Plan of Care Treatment Plan: Bed Mobility, Concurrent Therapy, Functional Activity Maribel, Functional Strength, Gait, Safety, Therapeutic Exercise, Transfers Treatment Duration: Oct 23, 2018 Frequency: 11 times per week Estimated Hrs Per Day: .5 hour per day Patient and/or Family Agrees t: Yes Discharge Recommendations Therapy D/C Recommendations: Home w/ Family Support Time/GCodes Time In: 1325 Time Out: 1338 Total Billed Treatment Time: 13 Total Billed Treatment 1 Visit GT - 13' DARIANA WATT PT Oct 13, 2018 14:00
--- NOTE | 2018-10-13 14:09 | Occupational Therapy Eval ---
OT Evaluation-General/PLF Medical Diagnosis Admission Date Oct 12, 2018 at 05:55 Medical Diagnosis: Non-union, L2 spinal fusion revision Onset Date: Oct 12, 2018 Therapy Diagnosis Therapy Diagnosis: decreased self care skills Height/Weight Height (Feet): 5 Height (Inches): 8.00 Weight (Pounds): 200 Weight (Ounces): 0.0 Precautions Precautions/Isolations: Fall Prevention, Standard Precautions Safety Interventions: Notify Family Referral Physician: Nadja Medical History Pertinent Medical History: Rheumatoid Arthritis Additional Medical History chronic back pain, skin cancer Current History pt s/p revision of L2-pelvis fusion Reviewed History: Yes Social History Home: Single Level Current Living Status: Spouse Entry Into Home: Stairs With Railing Steps Into Home: 2 Steps Inside Home: 0 ADL-Prior Level of Function Therapy Code Descriptions/Definitions Functional [place] Measure: 0=Not Assessed/NA 4=Minimal Assistance 1=Total Assistance 5=Supervision or Setup 2=Maximal Assistance 6=Modified [place] 3=Moderate Assistance 7=Complete [place] Therapy Quality Codes: 6 Independent with activity with or without an assistive device 5 Patient requires set up or clean up by helper. Patient completes activity by themselves 4 Supervision or touching assist (CGA). [place] provide cues , steadying assist 3 The helper provides less than half the effort to complete the activity 2 The helper provides more than half the effort to complete the activity 1 Dependent. The helper does all the effort to complete an activity 7 Patient refused to complete or attempt activity 9 The patient did not perform the activity before the current illness or injury 88 Not attempted due to Medical conditions or safety concerns Functional Abilities and Goals: Independent: Patient completed the activities by him/herself, with or without an assistive device, with no assistance from a helper. Needed Some Help: Patient needed partial assistance from another person to complete activities. Dependent: A helper completed the activities for the patient. Unknown: Not Applicable: ADL PLOF Comments Pt reports being independent with self care and mobility. Occasionally uses cane for mobility when outside. Self Care: Independent Functional Cognition: Independent DME/Equipment: Bath Chair, Reachers, Shower DME/Equipment Comments Pt states he is getting grab bars in his bathroom Drive Self: Yes OT Current Status Subjective Pt in bed, agrees to therapy. Pt reports 5/10 back pain. Mental Status/Objective Patient Orientation: Person, Place, Situation Attachments: Drains, Flaherty Catheter, IV Current Glasses/Contacts: Yes Hearing Aids: No Dentures/Partials: No Hand Dominance: Right Upper Extremity ROM Grossly WFL Upper Extremity Coordination Intact Upper Extremity Sensation Intact per pt report ADL-Treatment ADL-Current Pt participated in UE assessment while in bed. Pt states he just returned to bed and declined OOB activity at this time. Education provided regarding role of OT and plan of care. Pt states understanding of education and is in agreement with plan. Education provided regarding use of adaptive equipment for LE ADLs and back precautions. Pt states he is interested in the sock aid and would like to try using it, but would like to wait until tomorrow. Will continue ADL assessment and education in future sessions. Pt resting in bed with needs met after session. Therapy Code Descriptions/Definitions Functional [place] Measure: 0=Not Assessed/NA 4=Minimal Assistance 1=Total Assistance 5=Supervision or Setup 2=Maximal Assistance 6=Modified [place] 3=Moderate Assistance 7=Complete [place] Therapy Quality Codes: 6 Independent with activity with or without an assistive device 5 Patient requires set up or clean up by helper. Patient completes activity by themselves 4 Supervision or touching assist (CGA). [place] provide cues , steadying assist 3 The helper provides less than half the effort to complete the activity 2 The helper provides more than half the effort to complete the activity 1 Dependent. The helper does all the effort to complete an activity 7 Patient refused to complete or attempt activity 9 The patient did not perform the activity before the current illness or injury 88 Not attempted due to Medical conditions or safety concerns Education OT Patient Education: Rehab process Teaching Recipient: Patient Teaching Methods: Discussion Response to Teaching: Verbalize Understanding OT Short Term Goals Short Term Goals 1=Demonstrate adherence to instructed precautions during ADL tasks. 2=Patient will verbalize/demonstrate understanding of assistive devices/ modifications for ADL. 3=Patient will improve strength/tolerance for activity to enable patient to perform ADL's. OT Service Dismantler Goals Retirement Goals Time Frame: Oct 27, 2018 Eating (FIM): 6 Grooming(FIM): 6 Bathing(FIM): 5 Upper Body Dressing(FIM): 6 Lower Body Dressing(FIM): 5 Toileting(FIM): 6 Toilet/Commode Transfer(FIM): 6 Additional Goals: 1-Demonstrate ADL Tasks, 2-Verbalize Understanding, 3- ImproveStrength/Maribel 1=Demonstrate adherence to instructed precautions during ADL tasks. 2=Patient will verbalize/demonstrate understanding of assistive devices/ modifications for ADL. 3=Patient will improve strength/tolerance for activity to enable patient to perform ADL's. OT Education/Plan Problem List/Assessment Assessment: Decreased UE Strength, Dependent Transfers, Impaired Self-Care Skills Pt s/p revision of L2-pelvis fusion with decreased mobility and ADL functioning. Pt to benefit from skilled OT intervention for ADL training, transfers, adaptive equipment training, and home safety education to increase level of independence and allow safe discharge home. Discharge Recommendations Plan/Recommendations: Continue POC Treatment Plan/Plan of Care Treatment,Training & Education: Yes Patient would benefit from OT for education, treatment and training to promote independence in ADL's, mobility, safety and/or upper extremity function for ADL' s. Plan of Care: ADL Retraining, Functional Mobility, UE Funct Exercise/Act Treatment Duration: Oct 27, 2018 Frequency: 5 times per week Estimated Hrs Per Day: .25 hour per day Rehab Potential: Fair Time/GCodes Start Time: 13:47 Stop Time: 13:57 Total Time Billed (hr/min): 10 Billed Treatment Time 1 visit, EVL(10minutes) HERBERT FERNANDEZ OT Oct 13, 2018 14:09
[2018-10-13] MEDS: TAMSULOSIN 0.4 MG (FLOMAX) CAP PO SCH (17:38)
[2018-10-13] MEDS: LATANOPROST 0.005% (XALATAN) OPHTH SOLN 2.5 ML OU SCH (20:55)
[2018-10-13] MEDS: ALPRAZolam 0.5 MG (XANAX) TAB PO SCH (20:55)
[2018-10-14 04:20] VITALS: BP 130/70
--- NOTE | 2018-10-14 05:30 | Progress Note (SOAP) ---
Subjective Date Seen by a Provider: Oct 14, 2018 Time Seen by a Provider: 05:27 Subjective/Events-last exam POD #2, s/p Posterior hardware removal. L2-3 Anterolateral fusion, with posterior re-instrumentation and fusion VSS No complaints. Review of Systems General: No Night Sweats Pulmonary: No Cough Gastrointestinal: No: Abdominal Pain Musculoskeletal: No: back pain Neurological: No: Weakness Objective Exam Vital Signs Date Time Temp Pulse Resp B/P (MAP) Pulse Ox O2 Delivery O2 Flow Rate FiO2 10/14/18 04:20 98.3 91 20 130/70 (90) 95 Room Air 10/14/18 01:00 88 10/13/18 23:29 Nasal Cannula 3.00 10/13/18 23:00 99.8 91 16 122/62 (82) 95 Room Air 10/13/18 21:00 Room Air 0.00 10/13/18 19:50 97.5 90 20 117/65 (82) 96 Room Air 10/13/18 19:00 90 10/13/18 16:25 98.9 92 20 118/71 (87) 96 Room Air 10/13/18 13:35 109 10/13/18 12:00 98.4 83 18 97/52 (67) 95 Room Air 10/13/18 09:00 96 Room Air 3.00 10/13/18 08:37 100.0 101 20 131/63 (85) 96 Room Air I & O 10/14/18 06:59 Intake Total 2380 ml Output Total 1125 ml Balance 1255 ml Capillary Refill : General Appearance: No Apparent Distress Cardiovascular: No Edema, Normal Peripheral Pulses Gastrointestinal: other (No Chavez-Prasad's sign) Extremity: Non Tender, No Calf Tenderness Neurologic/Psychiatric: Alert, Oriented x3, No Motor/Sensory Deficits, Normal Mood/Affect, sql report writer II-XII Norm as Tested Skin: Other (Dressing CDI) Results Lab Laboratory Tests 10/13/18 05:40: White Blood Count 10.3, Red Blood Count 4.17L, Hemoglobin 10.3L, Hematocrit 33L , Mean Corpuscular Volume 78L, Mean Corpuscular Hemoglobin 25, Mean Corpuscular Hemoglobin Concent 32, Red Cell Distribution Width 15.2H, Platelet Count 189, Mean Platelet Volume 11.8H, Sodium Level 137, Potassium Level 3.9, Chloride Level 107, Carbon Dioxide Level 22, Anion Gap 8, Blood Urea Nitrogen 13, Creatinine 0.98, Estimat Glomerular Filtration Rate > 60, BUN/Creatinine Ratio 13, Glucose Level 110H, Calcium Level 8.3L, Corrected Calcium 8.7, Total Bilirubin 0.9, Aspartate Amino Transf (AST/SGOT) 22, Alanine Aminotransferase ( ALT/SGPT) 16, Alkaline Phosphatase 71, Total Protein 5.6L, Albumin 3.5 Assessment/Plan Assessment/Plan Assess & Plan/Chief Complaint 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
[2018-10-14] MEDS: HYDROcodone/APAP 5 MG/325 MG (LORTAB) TAB PO PRN ×3 (05:36→17:28)
[2018-10-14 06:06] LABS: BASOPHILS % (AUTO) 0 % (0-10); EOSINOPHILS # (AUTO) 0.1 10^3/uL (0.0-0.3); EOSINOPHILS % (AUTO) 1 % (0-10); HEMATOCRIT 32 % (40-54); HEMOGLOBIN 9.7 G/DL (13.3-17.7); LYMPHOCYTES # (AUTO) 1.8 X 10^3 (1.0-4.0); LYMPHOCYTES % (AUTO) 17 % (12-44); MEAN CORPUSCULAR HEMOGLOBIN 24 PG (25-34); MEAN CORPUSCULAR HGB CONC 31 G/DL (32-36); MEAN CORPUSCULAR VOLUME 79 FL (80-99); MEAN PLATELET VOLUME 11.2 FL (7.4-10.4); MONOCYTES # (AUTO) 1.4 X 10^3 (0.0-1.0); MONOCYTES % (AUTO) 13 % (0-12); NEUTROPHILS # (AUTO) 7.3 X 10^3 (1.8-7.8); NEUTROPHILS % (AUTO) 69 % (42-75); PLATELET COUNT 170 10^3/uL (130-400); RED CELL DISTRIBUTION WIDTH 15.1 % (10.0-14.5); WHITE BLOOD COUNT 10.6 10^3/uL (4.3-11.0)
[2018-10-14] MEDS: PANTOPRAZOLE 40 MG (PROTONIX) TAB PO SCH (06:20)
[2018-10-14] MEDS: MULTIVIT W/MINERALS TAB (THERAGRAN M) PO SCH (06:20)
[2018-10-14 06:26] LABS: ALANINE AMINOTRANSFERASE 13 U/L (0-55); ALBUMIN 3.3 GM/DL (3.2-4.5); ALKALINE PHOSPHATASE 62 U/L (40-136); BILIRUBIN,TOTAL 0.7 MG/DL (0.1-1.0); BUN/CREATININE RATIO 11; CALCIUM 8.2 MG/DL (8.5-10.1); CARBON DIOXIDE 21 MMOL/L (21-32); CHLORIDE 105 MMOL/L (98-107); CREATININE SERUM 0.93 MG/DL (0.60-1.30); GFR ESTIMATED > 60; GLUCOSE 88 MG/DL (70-105); POTASSIUM 3.4 MMOL/L (3.6-5.0); SODIUM 138 MMOL/L (135-145); TOTAL PROTEIN 5.5 GM/DL (6.4-8.2)
[2018-10-14] MEDS: ONDANSETRON 4 MG/2 ML (SDV) Z0FRAN IV PRN (07:52)
[2018-10-14] MEDS: FINASTERIDE (PROSCAR) 5 MG TAB PO SCH (07:52)
[2018-10-14] MEDS: predniSONE 5 MG TAB PO SCH (07:53)
[2018-10-14] MEDS: amLODIPine 10 MG (NORVASC) TAB PO SCH (07:53)
[2018-10-14] MEDS: hydrALAZINE (APRESOLINE) 25 MG TAB PO SCH ×2 (07:53→20:38)
[2018-10-14] MEDS: lisINopril 20 MG (PRINIVIL) TABLET PO SCH (07:53)
[2018-10-14] MEDS: FAMOTIDINE 20 MG (PEPCID) TABLET PO SCH ×2 (07:54→20:38)
[2018-10-14 08:00] VITALS: BP 123/73
[2018-10-14] MEDS ORDERED: ONDANSETRON 8 MG (ZOFRAN) ORAL DISSOLVE TAB PO PRN (08:15)
--- NOTE | 2018-10-14 09:06 | Cardiology Progress Note ---
Subjective Date Seen by Provider: Oct 14, 2018 Time Seen by Provider: 09:04 Subjective/Events-last exam Patient sitting up chair, no new complaints. Denies any chest pain or dyspnea. Objective-Cardiology Exam Last Set of Vital Signs Vital Signs 10/14/18 10/14/18 08:00 08:47 Temp 98.2 Pulse 110 Resp 18 B/P (MAP) 123/73 (90) Pulse Ox 94 O2 Delivery Nasal Cannula O2 Flow Rate 3.00 Capillary Refill : I&O Intake and Output 10/14/18 00:00 Intake Total 2380 ml Output Total 1045 ml Balance 1335 ml Intake Oral 1380 ml IV Total 1000 ml Output Urine Total 700 ml Drainage Total 260 ml Other 85 ml General: Alert, Oriented X3, Cooperative HEENT: Atraumatic, PERRLA Neck: Supple, No JVD, No Thyromegaly Lungs: Clear to Auscultation, Normal Air Movement Heart: Normal S1, Normal S2, No Murmurs, Other (irregularly irregular) Abdomen: Normal Bowel Sounds, Soft, No Tenderness, No Hepatosplenomegaly, No Masses Skin: No Rashes, No Significant Lesion Neuro: Normal Gait, Cranial Nerves 3-12 NL Psych/Mental Status: Mental Status NL, Mood NL Results Lab Laboratory Tests 10/14/18 05:45 A/P-Cardiology Admission Diagnosis Chronic atrial fibrillation Hypertension Back pain GERD Assessment/Plan Status post L2 revision and fusion surgery, procedure done on October 13, 2018 Paroxysmal atrial fibrillation, new onset during anesthesia induction early September. Still currently in atrial fibrillation with controlled rate. Continue to monitor heart rate, placed him on telemetry. Patient was maintained on Eliquis, continue to hold for now until cleared by orthopedic surgeon to restart the medication Hypertension, controlled, continue to monitor blood pressure/heart rate Osteoarthritis, spinal stenosis, had surgery to his spine in November 2017, was scheduled for surgery today which was aborted after induction of anesthesia due to atrial fibrillation. Anxiety. Managed by primary care physician BPH, managed by primary care physician next Suspicion of sleep apnea, managed by primary care physician Gastroesophageal reflux disease Clinical Quality Measures DVT/VTE Risk/Contraindication: Risk Factor Score Per Nursin RFS Level Per Nursing on Admit: 4+=Very High MANDY TRINIDAD Oct 14, 2018 09:06
--- NOTE | 2018-10-14 09:59 | Progress Note-Hospitalist ---
ABDIEL DELGADILLO DO 10/14/18 0959: Subjective HPI/CC On Admission Date Seen by Provider: Oct 14, 2018 Time Seen by Provider: 09:30 CC: Medical management following uncomplicated L-spine surgery by Dr Saez POD # 1 HPI: This is a 72yoWM clinic patient of Dr Bliss known to me from consultation in recovery room at [facility] in [place] 3 weeks ago when he experienced new onset AF rate controlled during anesthesia induction that caused the surgery to be aborted before started. I diagnosed new onset AF and conferred with Dr Graves and he saw the patient in his clinic that day, placed him on Toprol and Eliquis and ordered an ECHO which did not reveal any critical information so he was rescheduled at [facility] due to higer risk for AF w/RVR and would be close to Cardiology. Patient is doing well and is currently in chronic AF and I have consulted Dr Graves. Pt feels well and pain is controlled. Catheter is in place and is at the bedside. Subjective/Events-last exam Patient overall doing well DC Tely per Dr Graves No urinary retention noted Review of Systems General: Malaise Gastrointestinal: Constipation Musculoskeletal: back pain Objective Exam Vital Signs Vital Signs Date Time Temp Pulse Resp B/P (MAP) Pulse Ox O2 Delivery O2 Flow Rate FiO2 10/14/18 16:00 97.5 91 18 115/59 (77) 96 Room Air 10/14/18 08:47 3.00 Capillary Refill : General Appearance: No Apparent Distress, WD/WN, Chronically ill Respiratory: Chest Non Tender, Lungs Clear, Normal Breath Sounds, No Accessory Muscle Use, No Respiratory Distress Cardiovascular: No Edema, No Gallop, No JVD, No Murmur, Normal Peripheral Pulses, Irregularly Irregular Back: Decreased Range of Motion Neurologic/Psychiatric: Alert, Oriented x3, No Motor/Sensory Deficits, Normal Mood/Affect Results/Procedures Lab Laboratory Tests 10/14/18 05:45 Patient resulted labs reviewed. Assessment/Plan Assessment and Plan Assess & Plan/Chief Complaint Assessment: s/p uncomplicated L-spine surgery per Dr Saez POD # 2 Chronic AF new dx 3 weeks ago resulting in aborting surgery after anesthesia induction documented AF HTN RA maintained on immunosuppressives and steroids BPH GERD Anxiety Plan: Consult Dr Graves Hold anticoagulation due to spinal hematoma risk Monitor labs Diagnosis/Problems Diagnosis/Problems (1) Status post lumbar spine surgery for decompression of spinal cord Status: Acute (2) Atrial fibrillation Status: Chronic Qualifiers: Atrial fibrillation type: chronic Qualified Codes: I48.2 - Chronic atrial fibrillation (3) BPH (benign prostatic hyperplasia) Status: Chronic Qualifiers: Lower urinary tract symptom presence: unspecified whether lower urinary tract symptoms present Qualified Codes: N40.0 - Benign prostatic hyperplasia without lower urinary tract symptoms (4) Rheumatoid arthritis Status: Chronic Qualifiers: Rheumatoid arthritis location: unspecified site Rheumatoid factor presence : unspecified presence Qualified Codes: M06.9 - Rheumatoid arthritis, unspecified (5) Immunosuppressed status Status: Chronic (6) GERD (gastroesophageal reflux disease) Status: Chronic Qualifiers: Esophagitis presence: without esophagitis Qualified Codes: K21.9 - Gastro- esophageal reflux disease without esophagitis (7) Anxiety Status: Chronic (8) Flaherty catheter in place Status: Acute (9) Anemia, chronic disease Status: Chronic Clinical Quality Measures DVT/VTE Risk/Contraindication: Risk Factor Score Per Nursin RFS Level Per Nursing on Admit: 4+=Very High JOSHUA YOON MED STUDENT 10/14/18 1101: Subjective Subjective/Events-last exam Pt did well overnight Pain adequately controlled - 02/17 this morning Catheter was d/c this morning, pt has voided without issue No BM Using IS Anemia and slight hypokalemia noted from labs this morning Objective Exam General Appearance: No Apparent Distress Respiratory: Lungs Clear, Normal Breath Sounds, No Respiratory Distress Neurologic/Psychiatric: Alert, Normal Mood/Affect Assessment/Plan Assessment and Plan Assess & Plan/Chief Complaint Assessment: s/p L-spine surgery POD #2 Chronic AF (recent dx) Post-op anemia HTN RA BPH GERD Anxiety Plan: 1. Continue to ambulate 2. Pain mgmt 3. Lactulose for post-op constipation 4. Continue IS 5. Monitor labs Diagnosis/Problems Diagnosis/Problems (1) Status post lumbar spine surgery for decompression of spinal cord Status: Acute (2) Atrial fibrillation Status: Chronic Qualifiers: Atrial fibrillation type: chronic Qualified Codes: I48.2 - Chronic atrial fibrillation (3) Rheumatoid arthritis Status: Chronic Qualifiers: Rheumatoid arthritis location: unspecified site Rheumatoid factor presence : unspecified presence Qualified Codes: M06.9 - Rheumatoid arthritis, unspecified (4) GERD (gastroesophageal reflux disease) Status: Chronic Qualifiers: Esophagitis presence: without esophagitis Qualified Codes: K21.9 - Gastro- esophageal reflux disease without esophagitis (5) BPH (benign prostatic hyperplasia) Status: Chronic Qualifiers: Lower urinary tract symptom presence: unspecified whether lower urinary tract symptoms present Qualified Codes: N40.0 - Benign prostatic hyperplasia without lower urinary tract symptoms (6) Anemia, chronic disease Status: Chronic ABDIEL DELGADILLO DO Oct 14, 2018 09:59 JOSHUA YOON MED STUDENT Oct 14, 2018 11:01
[2018-10-14] MEDS: KCL 10 MEQ TAB (MICRO K) PO SCH ×2 (10:37→20:38)
--- NOTE | 2018-10-14 11:16 | Physical Therapy Daily Note ---
PT Daily Note-Current Subjective Pt reports feeling weak and not being able to have a BM. Pt and both state that he has had some issues with balance in the past but denies any falls, just "near misses" Pain Numeric Pain Scale: 4 Comment: left side superior iliac crest since surgery, no pain surgical site Appearance 1031am attempted treatment, pt in bathroom attempting BM, will try again later this am Upon arrival into pt's room, Pt sitting up in recliner awake and alert with present At end of session, pt supine in bed with head elevated, call light and phone within reach, present. Mental Status Attachments: Other-See Comments back brace Transfers Therapy Code Descriptions/Definitions Functional [place] Measure: 0=Not Assessed/NA 4=Minimal Assistance 1=Total Assistance 5=Supervision or Setup 2=Maximal Assistance 6=Modified [place] 3=Moderate Assistance 7=Complete [place] Therapy Quality Codes: 6 Independent with activity with or without an assistive device 5 Patient requires set up or clean up by helper. Patient completes activity by themselves 4 Supervision or touching assist (CGA). Warners provide cues , steadying assist 3 The helper provides less than half the effort to complete the activity 2 The helper provides more than half the effort to complete the activity 1 Dependent. The helper does all the effort to complete an activity 7 Patient refused to complete or attempt activity 9 The patient did not perform the activity before the current illness or injury 88 Not attempted due to Medical conditions or safety concerns Transfers (B, C, W/C) (FIM): 4 Scootin Rollin Supine to/from Sit: 5 Sit to/from Stand: 5 Pt impulsive at times, leaving walker away from him with some transfers, requires verb inst for safety and hand placement during transitions with pt stating he is fine and doesn't need to Assist required to stabilize feet while pt scoots self up to HOB Weight Bearing Right Lower Extremity: Right Weight Bearing/Tolerated Left Lower Extremity: Left Weight Bearing/Tolerated Gait Training Gait (FIM): 5 Distance (FIM): 3=150 ft Distance: 310 Gait Level of Assist: 5 Gait Persons Needed: 1 Gait Assistive Device: FWW wears back brace during amb, shuffling gait, impulsive with turns, no LOB, report of legs feeling weak Treatments transfer, safety and gait training Assessment Current Status: Good Progress increased distance with gait using FWW, is impulsive at times PT Detention Goals Detention Goals PT Anchorer Goals Time Frame: Oct 23, 2018 Transfers (B,C,W/C) (FIM): 6 Gait (FIM): 6 Gait distance (FIM): 3=150 ft Distance: 150' Gait Level of Assist: 6 Gait Assistive Device: FWW PT Plan Problem List Problem List: Activity Tolerance, Functional Strength, Safety, Balance, Gait, Transfer, Bed Mobility Treatment/Plan Treatment Plan: Continue Plan of Care Treatment Plan: Bed Mobility, Concurrent Therapy, Functional Activity Maribel, Functional Strength, Gait, Safety, Therapeutic Exercise, Transfers Treatment Duration: Oct 23, 2018 Frequency: 11 times per week Estimated Hrs Per Day: .5 hour per day Patient and/or Family Agrees t: Yes Safety Risks/Education Patient Education: Gait Training, Transfer Techniques, Safety Issues Teaching Recipient: Patient, Family Teaching Methods: Demonstration, Discussion Response to Teaching: Verbalize Understanding, Reinforcement Needed pt is impulsive at times, does not feel he needs the walker with him at all times even with encouragement and instruction to do so Time/GCodes Time In: 1049 Time Out: 1104 Total Billed Treatment Time: 15 Total Billed Treatment 1 visit GT 15 min DEBORAH GERARDO PTA Oct 14, 2018 11:16
[2018-10-14 12:00] VITALS: BP 140/68
--- NOTE | 2018-10-14 14:33 | Occupational Ther Daily Note ---
OT Current Status-Daily Note Subjective Pt in bed, agrees to treatment. Mental Status/Objective Therapy Code Descriptions/Definitions Functional [place] Measure: 0=Not Assessed/NA 4=Minimal Assistance 1=Total Assistance 5=Supervision or Setup 2=Maximal Assistance 6=Modified [place] 3=Moderate Assistance 7=Complete [place] ADL-Treatment Pt supine to sit with SBA. Sit to stand and transfer to chair with supervision using FWW. Education provided regarding use of adaptive equipment for LE dressing. Pt donned socks with minimal assistance using sock aid. Skilled cues required for technique. Pt states spouse will be available to assist at home as needed. Pt also states he has a hammerer tab he can use for LE dressing at home as needed. Pt denied further questions or needs at this time. Requests to remain seated in chair after session. All needs met. Education OT Patient Education: Modified ADL techniques Teaching Recipient: Patient Teaching Methods: Demonstration, Discussion Response to Teaching: Verbalize Understanding, Return Demonstration OT Short Term Goals Short Term Goals 1=Demonstrate adherence to instructed precautions during ADL tasks. 2=Patient will verbalize/demonstrate understanding of assistive devices/ modifications for ADL. 3=Patient will improve strength/tolerance for activity to enable patient to perform ADL's. OT Director Of Medical Education Goals Usp Goals Time Frame: Oct 27, 2018 Eating (FIM): 6 Grooming(FIM): 6 Bathing(FIM): 5 Upper Body Dressing(FIM): 6 Lower Body Dressing(FIM): 5 Toileting(FIM): 6 Toilet/Commode Transfer(FIM): 6 Additional Goals: 1-Demonstrate ADL Tasks, 2-Verbalize Understanding, 3- ImproveStrength/Maribel 1=Demonstrate adherence to instructed precautions during ADL tasks. 2=Patient will verbalize/demonstrate understanding of assistive devices/ modifications for ADL. 3=Patient will improve strength/tolerance for activity to enable patient to perform ADL's. OT Education/Plan Problem List/Assessment Pt s/p revision of L2-pelvis fusion with decreased mobility and ADL functioning. Pt to benefit from skilled OT intervention for ADL training, transfers, adaptive equipment training, and home safety education to increase level of independence and allow safe discharge home. Discharge Recommendations Plan/Recommendations: Continue POC Treatment Plan/Plan of Care Patient would benefit from OT for education, treatment and training to promote independence in ADL's, mobility, safety and/or upper extremity function for ADL' s. Plan of Care: ADL Retraining, Functional Mobility, UE Funct Exercise/Act Treatment Duration: Oct 27, 2018 Frequency: 5 times per week Estimated Hrs Per Day: .25 hour per day Rehab Potential: Fair Time/GCodes Start Time: 14:15 Stop Time: 14:25 Total Time Billed (hr/min): 10 Billed Treatment Time 1 visit, ADL(10minutes) HERBERT FERNANDEZ OT Oct 14, 2018 14:33
--- NOTE | 2018-10-14 14:50 | Physical Therapy Daily Note ---
PT Daily Note-Current Subjective Pt reports feeling some better this afternoon. States he thinks he will be going home tomorrow. States he was able to eat all of his lunch without nausea. Reports he took a walk in the hallway by himself with FWW and wearing back brace a little while ago but still feels weak. Pain Numeric Pain Scale: 3 Comment: left side kidney area but no pain surgical site Appearance pt sitting up in recliner awake watching TV upon arrival, agreeable to PT treatment At end of session, pt sitting in recliner watching TV with call light bedside table and phone within reach. All needs met at this time Mental Status Attachments: Other-See Comments back brace Transfers Therapy Code Descriptions/Definitions Functional [place] Measure: 0=Not Assessed/NA 4=Minimal Assistance 1=Total Assistance 5=Supervision or Setup 2=Maximal Assistance 6=Modified [place] 3=Moderate Assistance 7=Complete [place] Therapy Quality Codes: 6 Independent with activity with or without an assistive device 5 Patient requires set up or clean up by helper. Patient completes activity by themselves 4 Supervision or touching assist (CGA). [place] provide cues , steadying assist 3 The helper provides less than half the effort to complete the activity 2 The helper provides more than half the effort to complete the activity 1 Dependent. The helper does all the effort to complete an activity 7 Patient refused to complete or attempt activity 9 The patient did not perform the activity before the current illness or injury 88 Not attempted due to Medical conditions or safety concerns Transfers (B, C, W/C) (FIM): 6 Sit to/from Stand: 6 pt demonstrating safe and steady with sit to from stand transfers this afternoon Weight Bearing Right Lower Extremity: Right Weight Bearing/Tolerated Left Lower Extremity: Left Weight Bearing/Tolerated Gait Training Gait (FIM): 5 Distance (FIM): 3=150 ft Distance: 325 Gait Level of Assist: 5 Gait Persons Needed: 1 Gait Assistive Device: FWW slow steady gait, less impulsive this afternoon and improved step length and height. Instruction in improving upright posture and decreasing UE wt on walker Treatments safety, posture, transfer and gait training Assessment Current Status: Good Progress continues to increase gait distance. Improved safety and posture with use of walker PT Snf Goals Snf Goals PT Powdered Metal Supervisor Goals Time Frame: Oct 23, 2018 Transfers (B,C,W/C) (FIM): 6 Gait (FIM): 6 Gait distance (FIM): 3=150 ft Distance: 150' Gait Level of Assist: 6 Gait Assistive Device: FWW PT Plan Problem List Problem List: Activity Tolerance, Functional Strength, Safety, Balance, Gait, Transfer Treatment/Plan Treatment Plan: Continue Plan of Care Treatment Plan: Bed Mobility, Concurrent Therapy, Functional Activity Maribel, Functional Strength, Gait, Safety, Therapeutic Exercise, Transfers Treatment Duration: Oct 23, 2018 Frequency: 11 times per week Estimated Hrs Per Day: .5 hour per day Patient and/or Family Agrees t: Yes Safety Risks/Education Patient Education: Gait Training, Transfer Techniques, Safety Issues Teaching Recipient: Patient Teaching Methods: Demonstration, Discussion Response to Teaching: Verbalize Understanding, Return Demonstration Time/GCodes Time In: 1435 Time Out: 1453 Total Billed Treatment Time: 18 Total Billed Treatment 1 visit GT 18 min DEBORAH GERARDO PTA Oct 14, 2018 14:50
--- NOTE | 2018-10-14 15:12 | Cardiology Progress Note ---
Subjective Date Seen by Provider: Oct 14, 2018 Time Seen by Provider: 15:12 Subjective/Events-last exam patient is laying down in bed, feeling better. No new complaint Review of Systems General: No Chills, No Night Sweats, No Fatigue, No Malaise, No Appetite, No Other HEENT: No Head Aches, No Visual Changes, No Eye Pain, No Ear Pain, No Dysphasia , No Sinus Congestion, No Post Nasal Drip, No Sore Throat, No Other Pulmonary: No Dyspnea, No Cough, No Pleuritic Chest Pain, No Other Cardiovascular: No: Chest Pain, Palpitations, Orthopnea, Paroxysmal Noc. Dyspnea, Edema, Lt Headedness, Other Objective-Cardiology Exam Last Set of Vital Signs Vital Signs 10/14/18 10/14/18 10/14/18 08:47 12:00 12:04 Temp 97.1 Pulse 100 Resp 18 B/P (MAP) 140/68 (92) Pulse Ox 98 O2 Delivery Room Air O2 Flow Rate 3.00 Capillary Refill : I&O Intake and Output 10/14/18 00:00 Intake Total 2380 ml Output Total 1045 ml Balance 1335 ml Intake Oral 1380 ml IV Total 1000 ml Output Urine Total 700 ml Drainage Total 260 ml Other 85 ml General: Alert, Oriented X3, Cooperative HEENT: Atraumatic, PERRLA Neck: Supple, No JVD, No Thyromegaly Lungs: Clear to Auscultation, Normal Air Movement Heart: Normal S1, Normal S2, No Murmurs, Other (irregularly irregular) Abdomen: Normal Bowel Sounds, Soft, No Tenderness, No Hepatosplenomegaly, No Masses Extremities: No Clubbing, No Cyanosis Skin: No Rashes, No Significant Lesion Neuro: Normal Gait, Cranial Nerves 3-12 NL Psych/Mental Status: Mental Status NL, Mood NL Results Lab Laboratory Tests 10/14/18 05:45 A/P-Cardiology Admission Diagnosis Chronic atrial fibrillation Hypertension Back pain GERD Assessment/Plan Status post L2 revision and fusion surgery, procedure done on October 13, 2018 Paroxysmal atrial fibrillation, new onset during anesthesia induction early September. Still currently in atrial fibrillation with controlled rate. Continue to monitor Patient was maintained on Eliquis, continue to hold for now until cleared by orthopedic surgeon to restart the medication Hypertension, controlled, continue to monitor blood pressure/heart rate Osteoarthritis, spinal stenosis, had surgery to his spine in November 2017, was scheduled for surgery today which was aborted after induction of anesthesia due to atrial fibrillation. Anxiety. Managed by primary care physician BPH, managed by primary care physician quinn Suspicion of sleep apnea, managed by primary care physician Gastroesophageal reflux disease Clinical Quality Measures DVT/VTE Risk/Contraindication: Risk Factor Score Per Nursin RFS Level Per Nursing on Admit: 4+=Very High BENI GILLILAND MD Oct 14, 2018 15:12
[2018-10-14 16:00] VITALS: BP 115/59
[2018-10-14] MEDS: TAMSULOSIN 0.4 MG (FLOMAX) CAP PO SCH (17:27)
[2018-10-14] MEDS: ALPRAZolam 0.5 MG (XANAX) TAB PO SCH (20:38)
[2018-10-14] MEDS: LATANOPROST 0.005% (XALATAN) OPHTH SOLN 2.5 ML OU SCH (20:38)
[2018-10-14] MEDS: LACTULOSE SYRUP 10GM/15ML (ENULOSE) 30ML UDC PO SCH (20:39)
[2018-10-14 20:40] VITALS: BP 121/66
[2018-10-15 00:23] VITALS: BP 120/60
[2018-10-15] MEDS: HYDROcodone/APAP 5 MG/325 MG (LORTAB) TAB PO PRN ×4 (01:38→14:24)
[2018-10-15 04:20] VITALS: BP 124/68
[2018-10-15] MEDS: MULTIVIT W/MINERALS TAB (THERAGRAN M) PO SCH (06:07)
[2018-10-15] MEDS: PANTOPRAZOLE 40 MG (PROTONIX) TAB PO SCH (06:07)
[2018-10-15 06:09] LABS: BASOPHILS % (AUTO) 0 % (0-10); EOSINOPHILS # (AUTO) 0.2 10^3/uL (0.0-0.3); EOSINOPHILS % (AUTO) 2 % (0-10); HEMATOCRIT 30 % (40-54); HEMOGLOBIN 9.4 G/DL (13.3-17.7); LYMPHOCYTES # (AUTO) 1.7 X 10^3 (1.0-4.0); LYMPHOCYTES % (AUTO) 19 % (12-44); MEAN CORPUSCULAR HEMOGLOBIN 24 PG (25-34); MEAN CORPUSCULAR HGB CONC 31 G/DL (32-36); MEAN CORPUSCULAR VOLUME 78 FL (80-99); MEAN PLATELET VOLUME 11.5 FL (7.4-10.4); MONOCYTES # (AUTO) 1.2 X 10^3 (0.0-1.0); MONOCYTES % (AUTO) 14 % (0-12); NEUTROPHILS # (AUTO) 5.7 X 10^3 (1.8-7.8); NEUTROPHILS % (AUTO) 64 % (42-75); PLATELET COUNT 175 10^3/uL (130-400); RED BLOOD COUNT 3.84 10^6/uL (4.35-5.85); RED CELL DISTRIBUTION WIDTH 15.5 % (10.0-14.5)
--- NOTE | 2018-10-15 06:33 | Progress Note (SOAP) ---
Subjective Date Seen by a Provider: Oct 15, 2018 Time Seen by a Provider: 06:20 Subjective/Events-last exam Feels much better, ready to go home, pain markedly improved. Objective Exam Vital Signs Date Time Temp Pulse Resp B/P (MAP) Pulse Ox O2 Delivery O2 Flow Rate FiO2 10/15/18 04:20 98.1 72 18 124/68 (86) 97 Room Air 10/15/18 00:23 98.3 70 20 120/60 (80) 96 Room Air 10/14/18 21:00 Room Air 10/14/18 20:40 98.1 76 18 121/66 (84) 97 Room Air 10/14/18 16:00 97.5 91 18 115/59 (77) 96 Room Air 10/14/18 12:04 100 10/14/18 12:00 97.1 91 18 140/68 (92) 98 Room Air 10/14/18 08:47 Nasal Cannula 3.00 10/14/18 08:00 Room Air 0.00 10/14/18 08:00 98.2 110 18 123/73 (90) 94 Room Air 10/14/18 07:00 97 I & O 10/15/18 07:00 Intake Total 1200 ml Output Total 100 ml Balance 1100 ml Capillary Refill : General Appearance: No Apparent Distress Neck: Supple Respiratory: No Accessory Muscle Use, No Respiratory Distress Cardiovascular: Regular Rate, Rhythm, Normal Peripheral Pulses Gastrointestinal: soft Extremity: No Calf Tenderness Neurologic/Psychiatric: Alert, Oriented x3, No Motor/Sensory Deficits Skin: Other (dressing clean) Results Lab Laboratory Tests 10/15/18 06:00: White Blood Count 9.0, Red Blood Count 3.84L, Hemoglobin 9.4L, Hematocrit 30L, Mean Corpuscular Volume 78L, Mean Corpuscular Hemoglobin 24L, Mean Corpuscular Hemoglobin Concent 31L, Red Cell Distribution Width 15.5H, Platelet Count 175, Mean Platelet Volume 11.5H, Neutrophils (%) (Auto) 64, Lymphocytes (%) (Auto) 19 , Monocytes (%) (Auto) 14H, Eosinophils (%) (Auto) 2, Basophils (%) (Auto) 0, Neutrophils # (Auto) 5.7, Lymphocytes # (Auto) 1.7, Monocytes # (Auto) 1.2H, Eosinophils # (Auto) 0.2, Basophils # (Auto) 0.0 Assessment/Plan Assessment/Plan Assess & Plan/Chief Complaint S/P Revision L2-Pelvis revision fusion Home Today, instructions given Clinical Quality Measures DVT/VTE Risk/Contraindication: Risk Factor Score Per Nursin RFS Level Per Nursing on Admit: 4+=Very High MERCY JOHNSON MD Oct 15, 2018 06:33
--- NOTE | 2018-10-15 06:36 | Discharge Summary ---
Diagnosis/Chief Complaint Date of Admission Oct 13, 2018 at 05:55 Date of Discharge 10/16/2018 Admission Diagnosis Admission Diagnosis Lumbar Non-union Discharge Diagnosis Lumbar Non-union Hardware Failure Lumbago Reason Hospital Visit Lumbar Spine Surgery Discharge Summary Hospital Course Hospital Course Admitted, surgery performed, pain controlled, mobilized with PT, ready for d/c Labs Laboratory Tests 10/13/18 05:40: Red Blood Count 4.17L, Hemoglobin 10.3L, Hematocrit 33L, Mean Corpuscular Volume 78L, Red Cell Distribution Width 15.2H, Mean Platelet Volume 11.8H, Glucose Level 110H, Calcium Level 8.3L, Total Protein 5.6L 10/14/18 05:45: Red Blood Count 4.00L, Hemoglobin 9.7L, Hematocrit 32L, Mean Corpuscular Volume 79L, Red Cell Distribution Width 15.1H, Mean Platelet Volume 11.2H, Calcium Level 8.2L, Total Protein 5.5L, Mean Corpuscular Hemoglobin 24L, Mean Corpuscular Hemoglobin Concent 31L, Monocytes (%) (Auto) 13H, Monocytes # (Auto ) 1.4H, Potassium Level 3.4L 10/15/18 06:00: Red Blood Count 3.84L, Hemoglobin 9.4L, Hematocrit 30L, Mean Corpuscular Volume 78L, Red Cell Distribution Width 15.5H, Mean Platelet Volume 11.5H, Mean Corpuscular Hemoglobin 24L, Mean Corpuscular Hemoglobin Concent 31L, Monocytes ( %) (Auto) 14H, Monocytes # (Auto) 1.2H Procedures L2-3 Posterior/Anterior/Posterior spinal fusion Discharge Physical Examination Allergies: Coded Allergies: Sulfa (Sulfonamide Antibiotics) (Verified Allergy, Unknown, HIVES, ) aspirin (Verified Allergy, Unknown, RASH, 10/07/18) cephalexin (Verified Allergy, Unknown, ANAPHYLAXIS, 10/07/18) oxycodone (Verified Allergy, Unknown, vomiting, 10/07/18) Vitals & I&Os Vital Signs Date Time Temp Pulse Resp B/P (MAP) Pulse Ox O2 Delivery O2 Flow Rate FiO2 10/15/18 04:20 98.1 72 18 124/68 (86) 97 Room Air 10/14/18 08:47 3.00 General Appearance: Alert, Oriented X3, Cooperative Cardiovascular: Regular Rate Abdominal: Normal Bowel Sounds Neuro: Strength at 5/5 X4 Ext Discharge Home Medications Reviewed and agree with Discharge Medication list on patient's Discharge Instruction sheet Instructions to Patient/Family Please see electronic discharge instructions given to patient. Clinical Quality Measures DVT/VTE Risk/Contraindication: Risk Factor Score Per Nursin RFS Level Per Nursing on Admit: 4+=Very High MERCY JOHNSON MD Oct 15, 2018 06:36
[2018-10-15 06:37] LABS: ALANINE AMINOTRANSFERASE 14 U/L (0-55); ALBUMIN 3.1 GM/DL (3.2-4.5); ALKALINE PHOSPHATASE 55 U/L (40-136); BILIRUBIN,TOTAL 0.5 MG/DL (0.1-1.0); BUN/CREATININE RATIO 14; CALCIUM 8.3 MG/DL (8.5-10.1); CARBON DIOXIDE 21 MMOL/L (21-32); CHLORIDE 107 MMOL/L (98-107); CREATININE SERUM 0.97 MG/DL (0.60-1.30); GFR ESTIMATED > 60; GLUCOSE 97 MG/DL (70-105); POTASSIUM 3.8 MMOL/L (3.6-5.0); SODIUM 137 MMOL/L (135-145); TOTAL PROTEIN 5.4 GM/DL (6.4-8.2)
[2018-10-15] MEDS ORDERED: ONDA8TAB13 PO (06:39)
[2018-10-15] MEDS ORDERED: ACHD5005 PO (06:39)
[2018-10-15 08:00] VITALS: BP 131/67
[2018-10-15] MEDS: amLODIPine 10 MG (NORVASC) TAB PO SCH (08:02)
[2018-10-15] MEDS: predniSONE 5 MG TAB PO SCH (08:02)
[2018-10-15] MEDS: FINASTERIDE (PROSCAR) 5 MG TAB PO SCH (08:02)
[2018-10-15] MEDS: FAMOTIDINE 20 MG (PEPCID) TABLET PO SCH (08:02)
[2018-10-15] MEDS: hydrALAZINE (APRESOLINE) 25 MG TAB PO SCH (08:02)
[2018-10-15] MEDS: lisINopril 20 MG (PRINIVIL) TABLET PO SCH (08:02)
[2018-10-15] MEDS: KCL 10 MEQ TAB (MICRO K) PO SCH (08:02)
[2018-10-15] MEDS: LACTULOSE SYRUP 10GM/15ML (ENULOSE) 30ML UDC PO SCH (08:03)
--- NOTE | 2018-10-15 09:58 | Occupational Ther Daily Note ---
OT Current Status-Daily Note Subjective Pt alert, sitting in recliner. present in room. Pt agrees to therapy, but does not want to do much. Pt to discharge today. Mental Status/Objective Patient Orientation: Person, Place, Time, Situation Therapy Code Descriptions/Definitions Functional [place] Measure: 0=Not Assessed/NA 4=Minimal Assistance 1=Total Assistance 5=Supervision or Setup 2=Maximal Assistance 6=Modified [place] 3=Moderate Assistance 7=Complete [place] Attachments: Drains ADL-Treatment Declined shower, stating that he will do it when he gets home. Declined donning clothing due to getting drain out and did not want blood on his clothing. Stated that he has a tub bench that is used for bathing. Did agree to sponge bath and donning socks and underwear. Pt bathed all areas except buttocks and feet, declined to wash those areas. Pt doffed socks with min A and assist to don stating that his will do this when he gets home. Pt able to doff underwear by self. Min A to thread 2nd foot through pant leg when toes got stuck. Pt stood with supervision to hike pants over hips. After therapy, pt sitting in recliner with call light/phone in reach. All needs met in room. Bathing (FIM): 3 Bathing Location: L Arm, R Arm, L Upper Leg, R Upper Leg, Chest, Abdomen, Perineal Area Lower Body Dressing (FIM): 3 OT Short Term Goals Short Term Goals 1=Demonstrate adherence to instructed precautions during ADL tasks. 2=Patient will verbalize/demonstrate understanding of assistive devices/ modifications for ADL. 3=Patient will improve strength/tolerance for activity to enable patient to perform ADL's. OT Nursing Home Goals Nursing Home Goals Time Frame: Oct 27, 2018 Eating (FIM): 6 Grooming(FIM): 6 Bathing(FIM): 5 Upper Body Dressing(FIM): 6 Lower Body Dressing(FIM): 5 Toileting(FIM): 6 Toilet/Commode Transfer(FIM): 6 Additional Goals: 1-Demonstrate ADL Tasks, 2-Verbalize Understanding, 3- ImproveStrength/Maribel 1=Demonstrate adherence to instructed precautions during ADL tasks. 2=Patient will verbalize/demonstrate understanding of assistive devices/ modifications for ADL. 3=Patient will improve strength/tolerance for activity to enable patient to perform ADL's. OT Education/Plan Problem List/Assessment Pt s/p revision of L2-pelvis fusion with decreased mobility and ADL functioning. Pt to benefit from skilled OT intervention for ADL training, transfers, adaptive equipment training, and home safety education to increase level of independence and allow safe discharge home. Discharge Recommendations Plan/Recommendations: Discharge/Goals Met Treatment Plan/Plan of Care Patient would benefit from OT for education, treatment and training to promote independence in ADL's, mobility, safety and/or upper extremity function for ADL' s. Plan of Care: ADL Retraining, Functional Mobility, UE Funct Exercise/Act Treatment Duration: Oct 27, 2018 Frequency: 5 times per week Estimated Hrs Per Day: .25 hour per day Rehab Potential: Fair Time/GCodes Start Time: 09:35 Stop Time: 09:53 Total Time Billed (hr/min): 18 Billed Treatment Time 1 visit-ADL 1 (18 min) VAN ZENG Oct 15, 2018 09:58
--- NOTE | 2018-10-15 11:14 | Cardiology Progress Note ---
Subjective Date Seen by Provider: Oct 15, 2018 Time Seen by Provider: 11:13 Subjective/Events-last exam NO new complaint today, being discharged home. Objective-Cardiology Exam Last Set of Vital Signs Vital Signs 10/14/18 10/15/18 08:47 08:00 Temp 97.2 Pulse 89 Resp 18 B/P (MAP) 131/67 (88) Pulse Ox 99 O2 Delivery Room Air O2 Flow Rate 3.00 Capillary Refill : I&O Intake and Output 10/15/18 00:00 Intake Total 1250 ml Output Total 400 ml Balance 850 ml Intake Oral 1250 ml Output Urine Total 350 ml Drainage Total 50 ml # Voids 5 General: Alert, Oriented X3, Cooperative HEENT: Atraumatic, PERRLA Neck: Supple, No JVD, No Thyromegaly Lungs: Clear to Auscultation, Normal Air Movement Heart: Regular Rate Abdomen: Normal Bowel Sounds Extremities: No Clubbing, No Cyanosis Skin: No Rashes, No Significant Lesion Neuro: Strength at 5/5 X4 Ext Psych/Mental Status: Mental Status NL, Mood NL Results Lab Laboratory Tests 10/15/18 06:00 A/P-Cardiology Admission Diagnosis Chronic atrial fibrillation Hypertension Back pain GERD Assessment/Plan Status post L2 revision and fusion surgery, procedure done on October 13, 2018 Paroxysmal atrial fibrillation, new onset during anesthesia induction early September. Still currently in atrial fibrillation with controlled rate. Continue to monitor Patient was maintained on Eliquis, continue to hold for now until cleared by orthopedic surgeon to restart the medication Hypertension, controlled, continue to monitor blood pressure/heart rate Osteoarthritis, spinal stenosis, had surgery to his spine in November 2017, was scheduled for surgery today which was aborted after induction of anesthesia due to atrial fibrillation. Anxiety. Managed by primary care physician BPH, managed by primary care physician next Suspicion of sleep apnea, managed by primary care physician Gastroesophageal reflux disease Clinical Quality Measures DVT/VTE Risk/Contraindication: Risk Factor Score Per Nursin RFS Level Per Nursing on Admit: 4+=Very High MANDY TRINIDAD Oct 15, 2018 11:14
--- NOTE | 2018-10-15 11:16 | Cardiology Progress Note ---
Subjective Date Seen by Provider: Oct 15, 2018 Time Seen by Provider: 11:15 Subjective/Events-last exam patient is sitting in a chair, feeling well, being discharged this afternoon Review of Systems General: No Chills, No Night Sweats, No Fatigue, No Malaise, No Appetite, No Other HEENT: No Head Aches, No Visual Changes, No Eye Pain, No Ear Pain, No Dysphasia , No Sinus Congestion, No Post Nasal Drip, No Sore Throat, No Other Pulmonary: No Dyspnea, No Cough, No Pleuritic Chest Pain, No Other Cardiovascular: No: Chest Pain, Palpitations, Orthopnea, Paroxysmal Noc. Dyspnea, Edema, Lt Headedness, Other Objective-Cardiology Exam Last Set of Vital Signs Vital Signs 10/14/18 10/15/18 08:47 08:00 Temp 97.2 Pulse 89 Resp 18 B/P (MAP) 131/67 (88) Pulse Ox 99 O2 Delivery Room Air O2 Flow Rate 3.00 Capillary Refill : I&O Intake and Output 10/15/18 00:00 Intake Total 1250 ml Output Total 400 ml Balance 850 ml Intake Oral 1250 ml Output Urine Total 350 ml Drainage Total 50 ml # Voids 5 General: Alert, Oriented X3, Cooperative HEENT: Atraumatic, PERRLA Neck: Supple, No JVD, No Thyromegaly Lungs: Clear to Auscultation, Normal Air Movement Heart: Regular Rate Abdomen: Normal Bowel Sounds Extremities: No Clubbing, No Cyanosis Skin: No Rashes, No Significant Lesion Neuro: Strength at 5/5 X4 Ext Psych/Mental Status: Mental Status NL, Mood NL Results Lab Laboratory Tests 10/15/18 06:00 A/P-Cardiology Admission Diagnosis Chronic atrial fibrillation Hypertension Back pain GERD Assessment/Plan Status post L2 revision and fusion surgery, procedure done on October 13, 2018, recovering well Paroxysmal atrial fibrillation, new onset during anesthesia induction early September. Still currently in atrial fibrillation with controlled rate. Continue to monitor Patient was maintained on Eliquis, patient will be back on Eliquis on October 19, continue to monitor Hypertension, controlled, continue to monitor blood pressure/heart rate Osteoarthritis, spinal stenosis, had surgery to his spine in November 2017, was scheduled for surgery today which was aborted after induction of anesthesia due to atrial fibrillation. Anxiety. Managed by primary care physician BPH, managed by primary care physician next Suspicion of sleep apnea, managed by primary care physician Gastroesophageal reflux disease Clinical Quality Measures DVT/VTE Risk/Contraindication: Risk Factor Score Per Nursin RFS Level Per Nursing on Admit: 4+=Very High BENI GILLILAND MD Oct 15, 2018 11:16
--- NOTE | 2018-10-15 11:31 | Progress Note-Hospitalist ---
ABDIEL DELGADILLO DO 10/15/18 1131: Subjective HPI/CC On Admission Date Seen by Provider: Oct 15, 2018 Time Seen by Provider: 11:00 CC: Medical management following uncomplicated L-spine surgery by Dr Saez POD # 1 HPI: This is a 72yoWM clinic patient of Dr Bliss known to me from consultation in recovery room at [facility] in [place] 3 weeks ago when he experienced new onset AF rate controlled during anesthesia induction that caused the surgery to be aborted before started. I diagnosed new onset AF and conferred with Dr Graves and he saw the patient in his clinic that day, placed him on Toprol and Eliquis and ordered an ECHO which did not reveal any critical information so he was rescheduled at [facility] due to higer risk for AF w/RVR and would be close to Cardiology. Patient is doing well and is currently in chronic AF and I have consulted Dr Graves. Pt feels well and pain is controlled. Catheter is in place and is at the bedside. Subjective/Events-last exam Patient is doing much better No BM yet but + flatus so will send in meds to pharmacy because he has [address] Needs HH so set it up with [facility] Checked meds and labs Review of Systems Gastrointestinal: Constipation Musculoskeletal: back pain Objective Exam Vital Signs Vital Signs Date Time Temp Pulse Resp B/P (MAP) Pulse Ox O2 Delivery O2 Flow Rate FiO2 10/15/18 14:29 66 18 128/71 92 Room Air 10/15/18 12:00 98.2 10/14/18 08:47 3.00 Capillary Refill : General Appearance: No Apparent Distress, WD/WN, Chronically ill Respiratory: Chest Non Tender, Lungs Clear, Normal Breath Sounds, No Accessory Muscle Use, No Respiratory Distress Cardiovascular: No Edema, No Gallop, No JVD, No Murmur, Normal Peripheral Pulses, Irregularly Irregular Neurologic/Psychiatric: Alert, Oriented x3, No Motor/Sensory Deficits, Normal Mood/Affect Results/Procedures Lab Patient resulted labs reviewed. Assessment/Plan Assessment and Plan Assess & Plan/Chief Complaint Assessment: s/p uncomplicated L-spine surgery per Dr Saez POD # 3 Chronic AF new dx 3 weeks ago resulting in aborting surgery after anesthesia induction documented AF HTN RA maintained on immunosuppressives and steroids BPH GERD Anxiety Post op constipation Plan: Consult Dr Graves is appreciated Hold anticoagulation due to spinal hematoma risk Monitor labs BM regimen to pharmacy HH with [facility] Diagnosis/Problems Diagnosis/Problems (1) Status post lumbar spine surgery for decompression of spinal cord Status: Acute (2) Atrial fibrillation Status: Chronic Qualifiers: Atrial fibrillation type: chronic Qualified Codes: I48.2 - Chronic atrial fibrillation (3) BPH (benign prostatic hyperplasia) Status: Chronic Qualifiers: Lower urinary tract symptom presence: unspecified whether lower urinary tract symptoms present Qualified Codes: N40.0 - Benign prostatic hyperplasia without lower urinary tract symptoms (4) Rheumatoid arthritis Status: Chronic Qualifiers: Rheumatoid arthritis location: unspecified site Rheumatoid factor presence : unspecified presence Qualified Codes: M06.9 - Rheumatoid arthritis, unspecified (5) Immunosuppressed status Status: Chronic (6) GERD (gastroesophageal reflux disease) Status: Chronic Qualifiers: Esophagitis presence: without esophagitis Qualified Codes: K21.9 - Gastro- esophageal reflux disease without esophagitis (7) Anxiety Status: Chronic (8) Flaherty catheter in place Status: Acute (9) Anemia, chronic disease Status: Chronic Clinical Quality Measures DVT/VTE Risk/Contraindication: Risk Factor Score Per Nursin RFS Level Per Nursing on Admit: 4+=Very High JANELLE FOREMAN MED STUDENT 10/15/18 1254: Subjective Subjective/Events-last exam Patient states that he is feeling well and pain is well controlled He still has not had a bowel movement He is using his inspirometer regularly He is ambulating regularly Objective Exam General Appearance: No Apparent Distress, WD/WN Respiratory: Chest Non Tender, Lungs Clear, Normal Breath Sounds, No Accessory Muscle Use, No Respiratory Distress Cardiovascular: Regular Rate, Rhythm, No Edema, No Gallop, No JVD, No Murmur Gastrointestinal: Normal Bowel Sounds Neurologic/Psychiatric: Alert, Oriented x3, No Motor/Sensory Deficits, Normal Mood/Affect Skin: Normal Color, Warm/Dry Assessment/Plan Assessment and Plan Assess & Plan/Chief Complaint Assessment: 1) Recovery from back surgery 2) A-fib 3) HTN Plan: 1) Physical rehabilitation 2) Consult with cardiology ABDIEL DELGADILLO DO Oct 15, 2018 11:31 JANELLE FOREMAN MED STUDENT Oct 15, 2018 12:54
[2018-10-15] MEDS ORDERED: LACT20SO2 PO (11:33)
[2018-10-15] MEDS ORDERED: BISA10SU58 RC (11:33)
--- NOTE | 2018-10-15 11:39 | D/C HH Face to Face Order ---
D/C Face to Face Orders Instructions for Patient [facility], Patient Instructions/FollowUp: Dr Bliss in [address] Saez as scheduled Physician to follow Patient: Dr Bliss Discharge Diet for Home: Regular Diet Patient Problems: Lumbar spine surgery uncomplicated per Dr Nadja johnson RA Patient Data-Allergies,Ht & Wt Patient Allergies: Coded Allergies: Sulfa (Sulfonamide Antibiotics) (Verified Allergy, Unknown, HIVES, ) aspirin (Verified Allergy, Unknown, RASH, 10/07/18) cephalexin (Verified Allergy, Unknown, ANAPHYLAXIS, 10/07/18) oxycodone (Verified Allergy, Unknown, vomiting, 10/07/18) Height (Feet): 5 Height (Inches): 8.00 Weight (Pounds): 200 Weight (Ounces): 0.0 Home Health Need/Face to Face Date of Face to Face: Oct 15, 2018 Clinical Findings: Generalized weakness and fatigue, Pain with ambulation, Unsteady gait I have seen Pt [id number]: Yes Discharged To: Home Diagnosis/Conditions: Lumbar spine surgery uncomplicated per Dr Nadja johnson RA Patient is Homebound due to: Pain w/ambulation Homebound Status Due to the above stated illness, injury or surgical procedure (medical condition or diagnosis) and associated clinical findings, the patient is homebound because of his/her inability to leave home except with aid of a supportive device and/or person AND leaving the home requires a considerable and taxing effort or is medically contraindicated. Pt req the following assistanc: [facility] Nursing Orders Home Health Services Order: Nursing Services, Switch Cleaner-Evaluate & Treat, Physical Therapy-Evaluate & Treat Home Health Infusion Therapy Line Start Date: Oct 12, 2018 Line Start Time: 624 Line Type: Saline Lock Site Location: Forearm Therapy Orders Therapy Orders: OT (must have SN or PT order), Physical Therapy Certify Stmt I certify that this patient is under my care and that I, a nurse practitioner or a physician; a legislative assistant working with me, had a face to face encounter that - meets the physician face to face encounter requirements with this patient as dated. ABDIEL DELGADILLO DO Oct 15, 2018 11:39
[2018-10-15 12:00] VITALS: BP 128/71
[2018-10-15 14:29] VITALS: BP 128/71
--- OUTSIDE RECORDS SUMMARY | 2018-10-16 10:53 | XMS REPORT | Continuity of Care Document ---
Author Author [facility] Organization [facility] Address Unknown Phone Unavailable Allergies There is no data. Medications There is no data. Problems There is no data. Procedures There is no data. Results There is no data. Encounters ACCT No. Visit Date/Time Discharge Status Pt. Type Provider Facility Loc./Unit Complaint [id number] 11/07/2014 14:18:41 11/07/2014 23:59:59 CLS Outpatient Donna Albrecht [id number] 02/03/2018 10:45:13 02/03/2018 23:59:59 DIS Outpatient Holley Aldrich [facility] [id number] 01/06/2018 08:37:26 01/06/2018 23:59:59 DIS Outpatient Holley Aldrich [facility] [id number] 05/27/2017 13:55:40 05/27/2017 23:59:59 DIS Outpatient Holley Aldrich [facility]
== END 2018-10-15 14:30 | disposition home health service (06) | DRG 454 ==
LOC: UNDOADMIN 05:55 → SURG 05:55 → 4TH 05:55 → SURG 05:56 → 4TH 11:55 → SURG 13:41 → 4TH 13:41 → UNDOADMIN 10-13 05:55 → SURG 10-13 05:55 → 4TH 10-13 05:55 → UNDODISIN 10-15 14:30
PROVIDERS: ADMIT Orthopaedic Surgery Orthopaedic Surgery of the Spine; ATTEND Orthopaedic Surgery Orthopaedic Surgery of the Spine
PROC: 0SG0071 Fusion of Lumbar Vertebral Joint with Autologous Tissue Substitute, Posterior Approach, Posterior Column, Open Approach (ICD-10-PCS; 2018-10-12)
PROC: 0SP004Z Removal of Internal Fixation Device from Lumbar Vertebral Joint, Open Approach (ICD-10-PCS; 2018-10-12)
PROC: 0SP304Z Removal of Internal Fixation Device from Lumbosacral Joint, Open Approach (ICD-10-PCS; 2018-10-12)
PROC: 0SG00AJ Fusion of Lumbar Vertebral Joint with Interbody Fusion Device, Posterior Approach, Anterior Column, Open Approach (ICD-10-PCS; principal; 2018-10-12 08:01)
DX: S32.029K Unspecified fracture of second lumbar vertebra, subsequent encounter for fracture with nonunion (principal); T85.618A Breakdown (mechanical) of other specified internal prosthetic devices, implants and grafts, initial encounter; M96.0 Pseudarthrosis after fusion or arthrodesis; M48.061 Spinal stenosis, lumbar region without neurogenic claudication; M54.16 Radiculopathy, lumbar region; I10 Essential (primary) hypertension; I48.2 Chronic atrial fibrillation; E78.00 Pure hypercholesterolemia, unspecified; N40.0 Benign prostatic hyperplasia without lower urinary tract symptoms; M06.9 Rheumatoid arthritis, unspecified; G47.30 Sleep apnea, unspecified; K21.9 Gastro-esophageal reflux disease without esophagitis; F41.9 Anxiety disorder, unspecified; D64.9 Anemia, unspecified; E87.6 Hypokalemia; K59.09 Other constipation
CPT/HCPCS: 36415; 72100; 80053; 85025; 85027; 86850; 86900; 86901; 93005; 94664

== ENCOUNTER → 2019-03-25 | Outpatient (CLI) | payer MEDICARE ==
[~2019-03-25] MED LIST changes: +ACHD5005 PO; +BISA10SU58 RC; +LACT20SO2 PO; +ONDA8TAB13 PO
[2019-03-25 09:09] LABS: CHLORIDE 102 MMOL/L (98-107); POTASSIUM 3.4 MMOL/L (3.6-5.0); SODIUM 142 MMOL/L (135-145)
[2019-03-25 09:10] LABS: ALANINE AMINOTRANSFERASE 21 U/L (0-55); ALBUMIN 4.4 GM/DL (3.2-4.5); ALKALINE PHOSPHATASE 130 U/L (40-136); BILIRUBIN,TOTAL 0.2 MG/DL (0.1-1.0); BUN/CREATININE RATIO 20; CALCIUM 9.1 MG/DL (8.5-10.1); CARBON DIOXIDE 21 MMOL/L (21-32); CREATININE SERUM 0.69 MG/DL (0.60-1.30); GFR ESTIMATED > 60; GLUCOSE 105 MG/DL (70-105); TOTAL PROTEIN 7.6 GM/DL (6.4-8.2)
[2019-03-25 15:10] LABS: CHOLESTEROL 154 MG/DL (< 200); HDL CHOLESTEROL 41 MG/DL (40-60); TRIGLYCERIDES 111 MG/DL (<150); VLDL CHOLESTEROL 22 MG/DL (5-40)
== END ==
LOC: LAB FS 08:24
PROVIDERS: ATTEND Pediatrics
DX: Z12.5 Encounter for screening for malignant neoplasm of prostate (principal); I10 Essential (primary) hypertension
CPT/HCPCS: 36415; 80053; 80061; 84153

== ENCOUNTER → 2020-03-30 | Outpatient (CLI) | payer MEDICARE ==
[~2020-03-30] MED LIST changes: -ABAT250V IV; +ABAT250V2 IV; +ACHYD1T PO; +AMLO-66 PO; -AMLO1CAP9 PO; -HYDR-3820 PO; -METO-387 PO; +MTP25TSR PO
--- NOTE | 2020-03-30 11:54 | Diagnostic Imaging Report ---
Clinical indication: Patient with low back pain. No known injury. Patient previous surgery with metal. EXAM: X-ray of the lumbar spine, 5 views. COMPARISON: X-ray of the lumbar spine dated 10/13/2018. FINDINGS: Again seen L2 through sacroiliac posterior spinal fusion hardware with bilateral spinal rods and pedicle screws. Intervertebral disc graft is again seen at the L2-L3 and L4-L5 levels in stable good position. There is stable position of the intervertebral disc graft at the L5-S1 level which extends roughly 9 mm anterior to the vertebral bodies. There appears to be some bony bridging/fusion across the L5-S1 disc space and L4-L5 disc space. L2-L5 laminectomies are seen. Interval removal of the midline skin esthela. There appears to be progression of bony bridging/fusion of the posterior elements. There is progression of now moderate to severe disc space height loss at the L1-L2 level and anterior spurs. IMPRESSION: 1: Stable hardware involving the L2 through sacroiliac posterior spinal fusion hardware. There are stable anterior position of the L5-S1 metallic disc space graft. Otherwise there is no other concern for hardware complication. 2: There appears to be progression of intervertebral bony bridging/fusion, as described above. 3: Lumbar spine degenerative disease with progression of disc disease at the L1-L2 level with progression of moderate to severe loss of disc space height and anterior spurs. Dictated by: Dictated on workstation # [id number]
== END ==
LOC: RAD FS 10:34
PROVIDERS: ATTEND Registered Nurse Neonatal Intensive Care
DX: M47.816 Spondylosis without myelopathy or radiculopathy, lumbar region (principal); M51.36 Other intervertebral disc degeneration, lumbar region
CPT/HCPCS: 72100

== ENCOUNTER → 2021-04-05 | Outpatient (CLI) | payer MEDICARE ==
[~2021-04-05] MED LIST changes: +ABAT250V IV; -ABAT250V2 IV; -NALO12.5 PO; +NALO12.52 PO
--- NOTE | 2021-04-05 09:12 | Diagnostic Imaging Report ---
INDICATION: Followup fracture. COMPARISON: None available FINDINGS: 3 radiographic views of the right ankle were obtained. There is acute longitudinal oriented fracture extending through the medial malleolus. There is intra-articular extension. No significant displacement of fracture fragments is identified. Joint spaces are maintained. Note is made of diffuse calcified arteriosclerosis. IMPRESSION: 1. Acute appearing fracture of the medial malleolus of the right ankle. Dictated by: Dictated on workstation # [id number]
== END ==
LOC: RAD FS 08:37
PROVIDERS: ATTEND Nurse Practitioner
DX: S82.54XD Nondisplaced fracture of medial malleolus of right tibia, subsequent encounter for closed fracture with routine healing (principal); X58.XXXD Exposure to other specified factors, subsequent encounter
CPT/HCPCS: 73610

== ENCOUNTER → 2021-05-21 | Outpatient (CLI) | payer MEDICARE ==
--- NOTE | 2021-05-21 10:37 | Diagnostic Imaging Report ---
INDICATION: Followup fracture. COMPARISON: 04/05/2021. FINDINGS: Multiple radiographic views of the right ankle were obtained. Again identified is an acute nondisplaced intra-articular longitudinally oriented fracture involving the base of the medial malleolus. There is no significant displacement of the fracture fragments. No new acute osseous abnormality is seen. The joint spaces are maintained. No unexpected radiopaque foreign bodies are identified. There is moderate diffuse calcified arteriosclerosis. IMPRESSION: Stable appearing nonacute fracture of the right medial malleolus. Dictated by: Dictated on workstation # [id number]
== END ==
LOC: RAD FS 08:52
PROVIDERS: ATTEND Nurse Practitioner
DX: S82.54XD Nondisplaced fracture of medial malleolus of right tibia, subsequent encounter for closed fracture with routine healing (principal); X58.XXXD Exposure to other specified factors, subsequent encounter
CPT/HCPCS: 73610

== ENCOUNTER → 2021-07-30 | Outpatient (CLI) | payer MEDICARE ==
--- NOTE | 2021-07-30 11:24 | Diagnostic Imaging Report ---
Indication: Fracture Comparison made with prior examination from 05/21/2021 FINDINGS: The previously described vertically oriented fracture through the medial malleolus demonstrates normal alignment. There appears to be some callus formation. Plafond and talar dome are intact. No acute fracture or dislocation. There are extensive vascular calcifications. IMPRESSION: Stable alignment of the medial malleolar fracture with some interval callus formation. Extensive vascular calcification. Dictated by: Dictated on workstation # [id number]
== END ==
LOC: RAD FS 09:19
PROVIDERS: ATTEND Nurse Practitioner
DX: S82.54XD Nondisplaced fracture of medial malleolus of right tibia, subsequent encounter for closed fracture with routine healing (principal); X58.XXXD Exposure to other specified factors, subsequent encounter
CPT/HCPCS: 73610

== ENCOUNTER 2022-11-14 15:37 | Emergency (ER) | payer MEDICARE ==
[~2022-11-14] VITALS: Ht 172.7 cm; Wt 99.8 kg
[2022-11-14] MEDS ORDERED: ENOXAPARIN 100 MG/1 ML (LOVENOX) SYR SC STA (15:51)
--- NOTE | 2022-11-14 16:01 | ED Chest Pain ---
General Chief Complaint: Chest Pain Stated Complaint: CP,WEAKNESS Source: patient, spouse History of Present Illness Date Seen by Provider: Nov 14, 2022 Time Seen by Provider: 15:40 Initial Comments 76-year-old male presenting with his due to concerns for increased weakness and shortness of breath along with chest pain since last night. He states he t hought the chest pain was as chronic costochondritis but felt it was moving towards the left side of his chest. He denies anything radiating into his neck jaw or back. He denies having nausea, vomiting, diarrhea, abdominal pain, fever, chills, pain with urination. He did go to urgent care this morning because of feeling too weak to get out of his chair this morning. They had pe rformed a nasal swab and he was reportedly negative for influenza and COVID. He told his about the chest pain this afternoon so they came to the emergency department. He follows with Dr. Rafat Pino at [place] and last saw him in late September or early October after he had COVID. He has a history of atrial fibrillation from 2018 after anesthesia for back surgery but they felt it was due to anesthesia at the time. He denies having recurrent atrial fibrillation since that episode in 2018. He shows atrial fibrillation with RVR and on the cardiac bus driver/monitor here in the emergency department. Timing/Duration: constant, 1-2 days Severity/Quality: moderate, other ("pain" and could not describe it any further) Location: central Radiation: no radiation Activities at Onset: none Prior CP/Workup: non-cardiac (Dr. Graves at [facility] 2018 for A Fib after anesthesia), echocardiography Modifying Factors: worse with exercise (feels worse with exertion) ASA po ALTERNATIVE ENERGY ENGINEER: No NTG SL ALTERNATIVE ENERGY ENGINEER: No Associated Symptoms: No abdominal pain, No back pain, No diaphoresis, No dizziness; edema (chronic and takes Lasix prn), fatigue; No fever/chills, No headache, No heartburn, No nausea/vomiting, No rash; shortness of breath; No swelling/lump in chest, No syncope; weakness (general) Allergies and Home Medications Allergies Coded Allergies: Sulfa (Sulfonamide Antibiotics) (Verified Allergy, Unknown, HIVES, 10/07/18) aspirin (Verified Allergy, Unknown, RASH, 10/07/18) cephalexin (Verified Allergy, Unknown, ANAPHYLAXIS, 10/07/18) oxycodone (Verified Allergy, Unknown, vomiting, 10/07/18) Patient Home Medication List Home Medication List Reviewed: Yes Abatacept/Maltose (Orencia 250 mg Vial) 250 Mg Vial, 750 MG IV MONTHLY, (Reported) Entered as Reported by: FANNY FLOYD on 10/07/18 1316 Alprazolam (Xanax) 0.5 Mg Tablet, 0.5 MG PO HS, (Reported) Entered as Reported by: FANNY FLOYD on 10/07/18 131 Amlodipine Besylate/Benazepril (Amlodipine-Benazepril 10-20 mg) 1 Each Capsule, 1 CAP PO DAILY, (Reported) Entered as Reported by: FANNY FLOYD on 10/07/18 1316 Bisacodyl (Dulcolax) 10 Mg Supp.rect, 10 MG RC BID PRN for CONSTIPATION-1ST LINE Prescribed by: ABDIEL DELGADILLO on 10/15/18 113 Cholecalciferol (Vitamin D3) (Vitamin D3) 2,000 Unit Capsule, 2,000 UNIT PO DAILY, (Reported) Entered as Reported by: FANNY FLOYD on 10/07/18 131 Dexlansoprazole (Dexilant) 60 Mg Mark.bp, 60 MG PO DAILY, (Reported) Entered as Reported by: FANNY FLOYD on 10/07/18 131 Finasteride (Finasteride) 5 Mg Tablet, 5 MG PO DAILY, (Reported) Entered as Reported by: FANNY FLOYD on 10/07/18 131 Hydralazine HCl (Hydralazine HCl) 25 Mg Tablet, 25 MG PO BID, (Reported) Entered as Reported by: FANNY FLOYD on 10/07/18 131 Hydrocodone Bit/Acetaminophen (Lortab 5 Mg Tablet) 1 Tab Tab, 1-2 TAB PO Q4H PRN for PAIN-MODERATE TO SEVERE Prescribed by: MERCY JOHNSON on 10/15/18 0639 Lactulose (Lactulose) 20 Gm/30 Ml Solution, 10 GM PO BID Prescribed by: ABDIEL DELGADILLO on 10/15/18 1133 Latanoprost (Latanoprost) 2.5 Ml Drops, 1 DROP OU HS, (Reported) Entered as Reported by: FANNY FLOYD on 10/07/18 1403 Leflunomide (Leflunomide) 20 Mg Tablet, 20 MG PO DAILY, (Reported) Entered as Reported by: MATTEO LINARES on 10/06/18 1052 Metoprolol Succinate (Metoprolol Succinate) 25 Mg Tab.er.24h, 25 MG PO DAILY, (Reported) Entered as Reported by: FANNY FLOYD on 10/07/18 1316 Naloxegol Oxalate (Movantik) 12.5 Mg Tablet, 12.5 MG PO DAILY PRN for CONSTIPATION FROM PAIN MEDS, (Reported) Entered as Reported by: FANNY FLOYD on 10/07/18 1403 Ondansetron (Ondansetron Odt) 8 Mg Tab.rapdis, 8 MG PO Q6H PRN for NAUSEA/VOMITING-1ST LINE Prescribed by: MERCY JOHNSON on 10/15/18 0639 Prednisone (Prednisone) 5 Mg Tablet, 5 MG PO DAILY, (Reported) Entered as Reported by: FANNY FLOYD on 10/07/18 1316 Tamsulosin HCl (Tamsulosin HCl) 0.4 Mg Cap.er.24h, 0.4 MG PO DAILY, (Reported) Entered as Reported by: FANNY FLOYD on 10/07/18 1316 Review of Systems Review of Systems Constitutional: No chills, No diaphoresis, No fever EENTM: No Symptoms Reported Respiratory: See HPI Cardiovascular: See HPI Gastrointestinal: No Symptoms Reported Genitourinary: No Symptoms Reported Musculoskeletal: no symptoms reported Skin: No rash Psychiatric/Neurological: Anxiety; Denies Headache Hematologic/Lymphatic: Denies Blood Clots Past Zzwewyp-Zdibzt-Fbrees Hx Patient Social History Tobacco Use?: No Smoking Status: Never a Smoker Smokeless Tobacco Frequency: Never a User Use of E-Cig and/or Vaping dev: No Use of E-Cig and/or Vaping Yair: Never a User Substance use?: No Alcohol Use?: No Pt feels they are or have been: No Immunizations Up To Date COVID19 Vaccine Manager Of Enterprise: MODERNA Seasonal Allergies Seasonal Allergies: Yes Past Medical History Surgery/Hospitalization HX: Rheumatoid Arthritis, Hypertension, Anxiety, Paroxysmal Atrial Fibrillation Surgeries: Yes (back sx x2, ) Orthopedic Respiratory: No Currently Using CPAP: No Cardiac: Yes (recent dx of afib during anesthesia on 11/6) Atrial Fibrillation, High Cholesterol, Hypertension Neurological: No Neuropathy Genitourinary: No Benign Prostatic Hyperpl Gastrointestinal: No Musculoskeletal: Yes Arthritis, Rheumatoid Arthritis, Chronic Back Pain Endocrine: No HEENT: Yes (cataracts removed, glasses) Cancer: Yes Skin Psychosocial: No Integumentary: No Blood Disorders: No Family Medical History Arthritis 19 MOTHER Asthma 19 FATHER Dementia 19 FATHER Hypertension 19 FATHER Myocardial infarction 19 FATHER Parkinson's disease 19 FATHER Hypertension Physical Exam Vital Signs Vital Signs - First Documented 11/14/22 15:38 Temp 36.4 Pulse 159 Resp 21 B/P (MAP) 127/92 (104) Pulse Ox 95 O2 Delivery Room Air Capillary Refill : Less Than 3 Seconds Height, Weight, BMI Height: 5'8.00" Weight: 200lbs. 0.0oz. [id number]; 30.4 BMI Method: General Appearance: No Apparent Distress, Chronically ill HEENT: PERRL/EOMI, Pharynx Normal Neck: Full Range of Motion, Normal Inspection, Non Tender, Supple Respiratory: Chest Non Tender, Lungs Clear, Normal Breath Sounds, No Accessory Muscle Use, No Respiratory Distress Cardiovascular: Normal Peripheral Pulses, Irregularly Irregular, Tachycardia Gastrointestinal: Normal Bowel Sounds, No Pulsatile Mass, Non Tender, Soft Rectal: Deferred Extremity: Normal Capillary Refill, Normal Range of Motion, No Calf Tenderness, Pedal Edema (1+ BLE pitting edema) Neurologic/Psychiatric: Alert, Oriented x3, exhibitions and collections manager II-XII Norm as Tested Skin: Normal Color, Warm/Dry Critical Care Note Critical Care Total Time (minutes) 45 minutes Progress 45 minutes of critical care time was spent with the patient. Time excludes separately billable procedures. Time was spent obtaining history from the patient and from his spouse, reviewing cardiology notes and records from [address] Graves, ordering tests and reviewing results, ordering interventions and reviewing response, discussion with consultants, documentation in the chart. Patient was at risk of cardiovascular compromise due to his atrial fibrillation with rapid ventricular response requiring IV medicine and drip of rate controlling medicines to try and help manage his condition. He required my constant monitoring and intervention to manage his condition. Progress/Results/Core Measures Results/Orders Lab Results Laboratory Tests Test 11/14/22 15:41 Range/Units White Blood Count 9.1 4.3-11.0 10^3/uL Red Blood Count 5.10 4.30-5.52 10^6/uL Hemoglobin 13.8 13.3-17.7 g/dL Hematocrit 42 40-54 % Mean Corpuscular Volume 81 80-99 fL Mean Corpuscular Hemoglobin 27 25-34 pg Mean Corpuscular Hemoglobin Concent 33 32-36 g/dL Red Cell Distribution Width 15.9 H 10.0-14.5 % Platelet Count 110 L 130-400 10^3/uL Mean Platelet Volume 11.4 9.0-12.2 fL Immature Granulocyte % (Auto) 2 % Neutrophils (%) (Auto) 69 42-75 % Lymphocytes (%) (Auto) 18 12-44 % Monocytes (%) (Auto) 10 0-12 % Eosinophils (%) (Auto) 0 0-10 % Basophils (%) (Auto) 0 0-10 % Neutrophils # (Auto) 6.3 1.8-7.8 X 10^3 Lymphocytes # (Auto) 1.7 1.0-4.0 X 10^3 Monocytes # (Auto) 0.9 0.0-1.0 X 10^3 Eosinophils # (Auto) 0.0 0.0-0.3 10^3/uL Basophils # (Auto) 0.0 0.0-0.1 10^3/uL Immature Granulocyte # (Auto) 0.2 H 0.0-0.1 10^3/uL Percent Immature Platelet Fraction 6.1 0.0-7.6 % Prothrombin Time 13.6 12.2-14.7 SEC INR Comment 1.0 0.8-1.4 Activated Partial Thromboplast Time 27 24-35 SEC Sodium Level 135 135-145 MMOL/L Potassium Level 5.0 3.6-5.0 MMOL/L Chloride Level 98 98-107 MMOL/L Carbon Dioxide Level 23 21-32 MMOL/L Anion Gap 14 5-14 MMOL/L Blood Urea Nitrogen 21 H 7-18 MG/DL Creatinine 1.13 0.60-1.30 MG/DL Estimat Glomerular Filtration Rate 68 BUN/Creatinine Ratio 19 Glucose Level 228 H 70-105 MG/DL Calcium Level 8.3 L 8.5-10.1 MG/DL Corrected Calcium 8.9 8.5-10.1 MG/DL Magnesium Level 1.8 1.6-2.4 MG/DL Total Bilirubin 1.1 H 0.1-1.0 MG/DL Aspartate Amino Transf (AST/SGOT) 26 5-34 U/L Alanine Aminotransferase (ALT/SGPT) 50 0-55 U/L Alkaline Phosphatase 86 40-136 U/L Troponin I < 0.30 <0.30 NG/ML Pro-B-Type Natriuretic Peptide 1796.0 H <125.0 PG/ML Total Protein 5.8 L 6.4-8.2 GM/DL Albumin 3.2 3.2-4.5 GM/DL Lipase 17 8-78 U/L My Orders Orders - PHIL GORDILLO MD Cbc With Automated Diff (11/14/22 15:51) Magnesium (11/14/22 15:51) Chest 1 View Ap/Pa Only (11/14/22 15:51) Ekg Tracing (11/14/22 15:51) Comprehensive Metabolic Panel (11/14/22 15:51) Protime With Inr (11/14/22 15:51) Partial Thromboplastin Time (11/14/22 15:51) O2 (11/14/22 15:51) Monitor-Rhythm Ecg Trace Only (11/14/22 15:51) Ed Iv/Invasive Line Start (11/14/22 15:51) Lipase (11/14/22 15:51) Troponin I Fs (11/14/22 15:51) Probnp Fs (11/14/22 15:51) Diltiazem Injection (Cardizem Injection) (11/14/22 15:51) Ns (Ivpb) (Sodium C... W/Diltiazem Iv Fo (11/14/22 15:51) Enoxaparin Injection (Lovenox Injection) (11/14/22 15:51) Diltiazem Drip Pre-Mix (Cardizem Drip Pr (11/14/22 16:02) Medications Given in ED Current Medications Medications Dose Ordered Sig/Krystle Route Start Time Stop Time Status Last Admin Dose Admin Diltiazem HCl 125 ml @ ud STK-MED ONCE IV 11/14/22 16:02 11/14/22 16:06 DC 11/14/22 16:16 5 MLS/HR Vital Signs/I&O 11/14/22 11/14/22 11/14/22 11/14/22 15:38 15:38 16:12 16:16 Temp 36.4 Pulse 159 172 172 Resp 21 B/P (MAP) 127/92 (104) 147/91 124/86 Pulse Ox 95 O2 Delivery Room Air Room Air 11/14/22 17:48 Temp 36.5 Pulse 119 Resp 19 B/P (MAP) 134/79 Pulse Ox 95 O2 Delivery Room Air Admisison Planning May Need Admission (Planning): 15:40 Progress Progress Note #1: Progress Note Patient has life-threatening concerns of uncontrolled atrial fibrillation, possible myocardial infarction, possible acute coronary syndrome, possible blood clot from uncontrolled atrial fibrillation. Ordered electrocardiogram with his complaint of chest pain. Order chest x-ray to evaluate his lungs and heart. Ordered labs including CBC, chemistry panel, cardiac enzymes, proBNP, magnesium, coags. Placed on cardiac bus driver/monitor and noted to be in atrial fibrillation with rapid ventricular response with heart rate in the 150s to 160s. We will order diltiazem 10 mg IV bolus and a diltiazem drip to try and he lp with his Addison johnson with RVR. Asked if he would want to be admitted in [place] if he had to be admitted to the hospital since he follows with Dr. Pino and patient and spouse both requested he be admitted to [facility] if need for admit. Will defer repeat nasal swab for COVID and influenza since he had that done at urgent care this morning and they report it was negative. On my review of his 1 view chest x-ray he has diffuse patchy areas of inflammation vs increased pulmonary vascular congestion on his lungs. There is no effusion but has mild cardiomegaly. No single discrete pneumonia area. No prior chest x-ray for comparison. Progress Note #2: Time: 16:28 Progress Note CBC shows stable blood count without elevated white blood cell count or signs of anemia. His hemoglobin is 13.8. His electrocardiogram on my evaluation shows atrial fibrillation with RVR. This is similar to tracing from October 12, 2018 except he was rate controlled at that time. I reviewed the radiologist report of his chest x-ray and it does not show acute infiltrate but he has some increased pulmonary vascular congestion. With the bolus dose of diltiazem and his heart rate improved slightly down in the 110s to 130s. Blood pressure was remaining stable at 124/88. He was started on diltiazem drip and will continue to monitor on telemetry to see if his heart rate can be improved and possibly even convert to sinus rhythm. Will check with Dr. Rafat Pino as his pcp to see what he recommends and if patient could be admitted to [place] since he is on diltiazem drip. Awaiting chemistry and cardiac enzymes. Progress Note #3: Time: 17:08 Progress Note Chemistry panel did not show acute significant abnormalities. He did have elevated proBNP of over 1700 but his troponin I was less than 0.3. His tightness and pain on the left side of his chest was improved as he was started on the diltiazem drip. Dr. Pino did call me back about the patient and with him having negative cardiac enzymes with chest pain since last night as well as paroxysmal atrial fibrillation requiring diltiazem drip he accepted the patient for transfer to [place]. He had also checked with the hospital to ensure they had a bed prior to calling me back. He stated that they had a bed capability and could take the patient in transfer. He did not want any additional medications or treatments at this point and will evaluate the patient after transfer. Patient and family were updated about the plan and will call EMS for transport as soon as bed is available and nursing report has been given. In the meantime continue the diltiazem drip. His blood pressure was remaining stable but he continued to be in atrial fibrillation with RVR. He might require increasing the dose of the diltiazem from the 5 mg an hour that he was started on but will defer that until he is transferred to [place]. He had been given a dose of Lovenox as a anticoagulant preventive measure. Patient and family were agreeable with the transfer and treatment with Dr. Pino. Initial ECG Impression Date: Nov 14, 2022 Initial ECG Impression Time: 15:42 Initial ECG Rate: 137 Initial ECG Rhythm: A Fib/Flutter Initial ECG Comparisson: Changed (10/12/2018 Atrial fibrillation but rate controlled then) Comment Based on my personal review and interpretation his electrocardiogram today shows atrial fibrillation with rapid ventricular response and a rate of 137 bpm. He has a right bundle branch block. There is some ST depression. He has no acute ST elevation. His QT interval was 313 ms with a QTc interval 393 ms. He has prior tracing from October 12, 2018 that showed atrial fibrillation at that time but it was rate controlled. Diagnostic Imaging Diagonstic Imaging: Xray Plain Films/CT/US/NM/MRI: chest Comments NAME: ELDA BOYER [facility] REC#: [id number] PT STATUS: REG ER : 1945 PHYSICIAN: PHIL GORDILLO MD ADMIT DATE: 11/14/22/ER FS Draft Date of Exam:11/14/22 CHEST 1 VIEW AP/PA ONLY INDICATION: Shortness of breath and chest pain Frontal chest obtained at 0354 p.m. Heart is mildly enlarged. There is mild central vascular prominence. There is no focal infiltrate or pneumothorax or pleural fluid. IMPRESSION: Cardiomegaly and mild central vascular prominence with no focal infiltrate or pneumothorax or pleural fluid. Dictated on workstation # [id number] Dict: 11/14/22 1602 Trans: 11/14/22 1605 [id number] [id number] Interpreted by: RUSLAN LAO MD Electronically signed by: Reviewed: Reviewed by Me Departure Impression Primary Impression: Paroxysmal atrial fibrillation with rapid ventricular response Disposition: XF T-[facility] Condition: Critical Transfer Transfer Reason: Patient preference (PCP is Dr. Rafat Pino and requests [facility] for admit) Time Spoke to Accepting Phy: 17:08 Transfer Progress Notes D/w Dr. Pino about the patient and with him having negative cardiac enzymes with chest pain since last night as well as paroxysmal atrial fibrillation requiring diltiazem drip he accepted the patient for transfer to [place]. He had also checked with the hospital to ensure they had a bed prior to calling me back. He stated that they had a bed capability and could take the patient in transfer. He did not want any additional medications or treatments at this point and will evaluate the patient after transfer. Will hold Diltiazem drip at 5 mg/hr for now and he may need adjustment if he continues with Atrial fibrillation with RVR provided his blood pressures maintain and he continues to be hemodynamically stable as he is here. Transfer Facility: [facility] Method of Transfer: EMS Departure-Patient Inst. Referrals: RAFAT PINO MD (PCP/Family) Primary Care Physician PHIL GORDILLO MD Nov 14, 2022 16:01
[2022-11-14] MEDS ORDERED: dilTIAZem DRIP PRE-MIX 125 ML IV ONE (16:02)
[2022-11-14 16:05] LABS: WHITE BLOOD COUNT 9.1 10^3/uL (4.3-11.0)
--- NOTE | 2022-11-14 16:05 | Diagnostic Imaging Report ---
INDICATION: Shortness of breath and chest pain Frontal chest obtained at 0354 p.m. Heart is mildly enlarged. There is mild central vascular prominence. There is no focal infiltrate or pneumothorax or pleural fluid. IMPRESSION: Cardiomegaly and mild central vascular prominence with no focal infiltrate or pneumothorax or pleural fluid. Dictated by: Dictated on workstation # [id number]
[2022-11-14 16:06] LABS: BASOPHILS % (AUTO) 0 % (0-10); EOSINOPHILS % (AUTO) 0 % (0-10); HEMATOCRIT 42 % (40-54); HEMOGLOBIN 13.8 g/dL (13.3-17.7); LYMPHOCYTES # (AUTO) 1.7 X 10^3 (1.0-4.0); LYMPHOCYTES % (AUTO) 18 % (12-44); MEAN CORPUSCULAR HEMOGLOBIN 27 pg (25-34); MEAN CORPUSCULAR HGB CONC 33 g/dL (32-36); MEAN CORPUSCULAR VOLUME 81 fL (80-99); MEAN PLATELET VOLUME 11.4 fL (9.0-12.2); MONOCYTES # (AUTO) 0.9 X 10^3 (0.0-1.0); MONOCYTES % (AUTO) 10 % (0-12); NEUTROPHILS # (AUTO) 6.3 X 10^3 (1.8-7.8); NEUTROPHILS % (AUTO) 69 % (42-75); PLATELET COUNT 110 10^3/uL (130-400)
[2022-11-14 16:15] LABS: PROTHROMBIN TIME PATIENT 13.6 SEC (12.2-14.7)
[2022-11-14 16:33] LABS: CALCIUM 8.3 MG/DL (8.5-10.1); CREATININE SERUM 1.13 MG/DL (0.60-1.30)
[2022-11-14 16:34] LABS: ALBUMIN 3.2 GM/DL (3.2-4.5); BILIRUBIN,TOTAL 1.1 MG/DL (0.1-1.0); MAGNESIUM 1.8 MG/DL (1.6-2.4); TOTAL PROTEIN 5.8 GM/DL (6.4-8.2)
[2022-11-14 17:48] VITALS: BP 134/79
== END 2022-11-14 17:47 | disposition short-term general hospital (02) ==
LOC: EDUNIT# 15:37 → ER FS 15:38
DX: I48.0 Paroxysmal atrial fibrillation (principal); I48.20 Chronic atrial fibrillation, unspecified
CPT/HCPCS: 36415; 71045; 80053; 83690; 83735; 83880; 84484; 85025; 85610; 85730; 93005; 93041

== ENCOUNTER 2022-11-22 08:07 | Emergency (ER) | payer MEDICARE ==
[~2022-11-22] VITALS: Ht 175.3 cm; Wt 99.8 kg
--- NOTE | 2022-11-22 08:19 | ED General ---
General Chief Complaint: General Problems/Pain Stated Complaint: COUGH; GEN WEAKNESS History of Present Illness Date Seen by Provider: Nov 22, 2022 Time Seen by Provider: 08:15 Initial Comments 76 yr M with PMH of brandynba LUNDYSTEVE since 2021/HTN/RA/A. fib on Cesar, is brought in by EMS with complaints of generalized weakness and cough for the past 2 days. Patient states that today morning he felt so weak that he can barely get up out of bed. Patient's last meal was last night dinner. Patient is comp liant with all his medications, but he has not taken his morning meds yet. Patient was recently discharged from [facility] a few days ago for which he was admitted for A. fib. Patient's wants him to go [place] to [place] to be admitted. Pt does not smoke. Allergies and Home Medications Allergies Coded Allergies: Sulfa (Sulfonamide Antibiotics) (Verified Allergy, Unknown, HIVES, 10/07/18) aspirin (Verified Allergy, Unknown, RASH, 10/07/18) cephalexin (Verified Allergy, Unknown, ANAPHYLAXIS, 10/07/18) oxycodone (Verified Allergy, Unknown, vomiting, 10/07/18) Patient Home Medication List Home Medication List Reviewed: Yes Abatacept/Maltose (Orencia 250 mg Vial) 250 Mg Vial, 750 MG IV MONTHLY, (Reported) Entered as Reported by: FANNY FLOYD on 10/07/18 1316 Alprazolam (Xanax) 0.5 Mg Tablet, 0.5 MG PO HS, (Reported) Entered as Reported by: FANNY FLOYD on 10/07/18 1316 Amlodipine Besylate/Benazepril (Amlodipine-Benazepril 10-20 mg) 1 Each Capsule, 1 CAP PO DAILY, (Reported) Entered as Reported by: FANNY FLOYD on 10/07/18 1316 Bisacodyl (Dulcolax) 10 Mg Supp.rect, 10 MG RC BID PRN for CONSTIPATION-1ST LINE Prescribed by: ABDIEL DELGADILLO on 10/15/18 1133 Cholecalciferol (Vitamin D3) (Vitamin D3) 2,000 Unit Capsule, 2,000 UNIT PO JADIEL LY, (Reported) Entered as Reported by: FANNY FLOYD on 10/07/18 1316 Dexlansoprazole (Dexilant) 60 Mg Cap.drSangitabp, 60 MG PO DAILY, (Reported) Entered as Reported by: FANNY FLOYD on 10/07/18 1316 Finasteride (Finasteride) 5 Mg Tablet, 5 MG PO DAILY, (Reported) Entered as Reported by: FANNY FLOYD on 10/07/18 1316 Hydralazine HCl (Hydralazine HCl) 25 Mg Tablet, 25 MG PO BID, (Reported) Entered as Reported by: FANNY FLOYD on 10/07/18 1316 Hydrocodone Bit/Acetaminophen (Lortab 5 Mg Tablet) 1 Tab Tab, 1-2 TAB PO Q4H PRN for PAIN-MODERATE TO SEVERE Prescribed by: MERCY JOHNSON on 10/15/18 0639 Lactulose (Lactulose) 20 Gm/30 Ml Solution, 10 GM PO BID Prescribed by: ABDIEL DELGADILLO on 10/15/18 1133 Latanoprost (Latanoprost) 2.5 Ml Drops, 1 DROP OU HS, (Reported) Entered as Reported by: FANNY FLOYD on 10/07/18 1403 Leflunomide (Leflunomide) 20 Mg Tablet, 20 MG PO DAILY, (Reported) Entered as Reported by: MATTEO LINARES on 10/06/18 1052 Metoprolol Succinate (Metoprolol Succinate) 25 Mg Tab.er.24h, 25 MG PO DAILY, (Reported) Entered as Reported by: FANNY FLOYD on 10/07/18 131 Naloxegol Oxalate (Movantik) 12.5 Mg Tablet, 12.5 MG PO DAILY PRN for CONSTIPATION FROM PAIN MEDS, (Reported) Entered as Reported by: FANNY FLOYD on 10/07/18 140 Ondansetron (Ondansetron Odt) 8 Mg Tab.rapdis, 8 MG PO Q6H PRN for NAUSEA/VOMITING-1ST LINE Prescribed by: MERCY JOHNSON on 10/15/18 0639 Prednisone (Prednisone) 5 Mg Tablet, 5 MG PO DAILY, (Reported) Entered as Reported by: FANNY FLOYD on 10/07/18 1316 Tamsulosin HCl (Tamsulosin HCl) 0.4 Mg Cap.er.24h, 0.4 MG PO DAILY, (Reported) Entered as Reported by: FANNY FLOYD on 10/07/18 1316 Review of Systems Review of Systems Constitutional: see HPI, malaise, weakness (generalized) EENTM: no symptoms reported Respiratory: cough Cardiovascular: no symptoms reported Gastrointestinal: no symptoms reported Genitourinary: no symptoms reported Musculoskeletal: no symptoms reported Skin: no symptoms reported Psychiatric/Neurological: No Symptoms Reported Hematologic/Lymphatic: No Symptoms Reported Immunological/Allergic: no symptoms reported Past Ppljmjz-Odfjdo-Wyqmut Hx Seasonal Allergies Seasonal Allergies: Yes Past Medical History Surgery/Hospitalization HX: Rheumatoid Arthritis, Hypertension, Anxiety, Paroxysmal Atrial Fibrillation Surgeries: Yes (back sx x2, ) Orthopedic Respiratory: No Currently Using CPAP: No Cardiac: Yes (recent dx of afib during anesthesia on 09/15) Atrial Fibrillation, High Cholesterol, Hypertension Neurological: No Neuropathy Genitourinary: No Benign Prostatic Hyperpl Gastrointestinal: No Musculoskeletal: Yes Arthritis, Rheumatoid Arthritis, Chronic Back Pain Endocrine: No HEENT: Yes (cataracts removed, glasses) Cancer: Yes Skin Psychosocial: No Integumentary: No Blood Disorders: No Family Medical History Arthritis 19 MOTHER Asthma 19 FATHER Dementia 19 FATHER Hypertension 19 FATHER Myocardial infarction 19 FATHER Parkinson's disease 19 FATHER Hypertension Physical Exam Vital Signs Vital Signs - First Documented Capillary Refill : Height, Weight, BMI Height: 5'8.00" Weight: 200lbs. 0.0oz. 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 Norm as Tested Skin: Normal Color Focused Exam Lactate Level 11/22/22 08:34: Lactic Acid Level 1.41 Lactic Acid Level Laboratory Tests Test 11/22/22 08:34 Lactic Acid Level 1.41 MMOL/L (0.50-2.00) Progress/Results/Core Measures Suspected Sepsis SIRS Temperature: Pulse: Respiratory Rate: Laboratory Tests 11/22/22 08:13: White Blood Count 7.7 Blood Pressure / Mean: 11/22/22 08:34: Lactic Acid Level 1.41 Laboratory Tests 11/22/22 08:13: Creatinine 1.20, INR Comment 1.0, Platelet Count 93L, Total Bilirubin 1.4H Results/Orders Lab Results Laboratory Tests Test 11/22/22 08:13 11/22/22 08:34 11/22/22 08:40 Range/Units White Blood Count 7.7 4.3-11.0 10^3/uL Red Blood Count 5.41 4.30-5.52 10^6/uL Hemoglobin 14.7 13.3-17.7 g/dL Hematocrit 44 40-54 % Mean Corpuscular Volume 81 80-99 fL Mean Corpuscular Hemoglobin 27 25-34 pg Mean Corpuscular Hemoglobin Concent 34 32-36 g/dL Red Cell Distribution Width 15.3 H 10.0-14.5 % Platelet Count 93 L 130-400 10^3/uL Mean Platelet Volume 10.2 9.0-12.2 fL Immature Granulocyte % (Auto) 2 % Neutrophils (%) (Auto) 60 42-75 % Lymphocytes (%) (Auto) 27 12-44 % Monocytes (%) (Auto) 9 0-12 % Eosinophils (%) (Auto) 1 0-10 % Basophils (%) (Auto) 1 0-10 % Neutrophils # (Auto) 4.7 1.8-7.8 X 10^3 Lymphocytes # (Auto) 2.1 1.0-4.0 X 10^3 Monocytes # (Auto) 0.7 0.0-1.0 X 10^3 Eosinophils # (Auto) 0.1 0.0-0.3 10^3/uL Basophils # (Auto) 0.1 0.0-0.1 10^3/uL Immature Granulocyte # (Auto) 0.1 0.0-0.1 10^3/uL Percent Immature Platelet Fraction 4.6 0.0-7.6 % Prothrombin Time 14.0 12.2-14.7 SEC INR Comment 1.0 0.8-1.4 Activated Partial Thromboplast Time 28 24-35 SEC D-Dimer 1.57 H 0.00-0.49 UG/ML Sodium Level 130 L 135-145 MMOL/L Potassium Level 3.9 3.6-5.0 MMOL/L Chloride Level 94 L 98-107 MMOL/L Carbon Dioxide Level 26 21-32 MMOL/L Anion Gap 10 5-14 MMOL/L Blood Urea Nitrogen 13 7-18 MG/DL Creatinine 1.20 0.60-1.30 MG/DL Estimat Glomerular Filtration Rate 63 BUN/Creatinine Ratio 11 Glucose Level 116 H 70-105 MG/DL Calcium Level 8.5 8.5-10.1 MG/DL Corrected Calcium 9.4 8.5-10.1 MG/DL Magnesium Level 1.4 L 1.6-2.4 MG/DL Total Bilirubin 1.4 H 0.1-1.0 MG/DL Aspartate Amino Transf (AST/SGOT) 19 5-34 U/L Alanine Aminotransferase (ALT/SGPT) 24 0-55 U/L Alkaline Phosphatase 75 40-136 U/L Troponin I < 0.30 <0.30 NG/ML Pro-B-Type Natriuretic Peptide 1448.0 H <125.0 PG/ML Total Protein 5.8 L 6.4-8.2 GM/DL Albumin 2.9 L 3.2-4.5 GM/DL Influenza Type A (RT-PCR) Not Detected Not Detecte Influenza Type B (RT-PCR) Not Detected Not Detecte SARS-CoV-2 RNA (RT-PCR) Not Detected Not Detecte Lactic Acid Level 1.41 0.50-2.00 MMOL/L Urine Color YELLOW Urine Clarity CLEAR Urine pH 8.0 5-9 Urine Specific [place] 1.015 L 1.016-1.022 Urine Protein 1+ H NEGATIVE Urine Glucose (UA) NEGATIVE NEGATIVE Urine Ketones NEGATIVE NEGATIVE Urine Nitrite NEGATIVE NEGATIVE Urine Bilirubin NEGATIVE NEGATIVE Urine Urobilinogen 2.0 < = 1.0 MG/DL Urine Leukocyte Esterase NEGATIVE NEGATIVE Urine RBC (Auto) NEGATIVE NEGATIVE Urine RBC NONE /HPF Urine WBC RARE /HPF Urine Squamous Epithelial Cells NONE /HPF Urine Crystals NONE /LPF Urine Bacteria NEGATIVE /HPF Urine Casts NONE /LPF Urine Mucus SMALL H /LPF Urine Culture Indicated NO My Orders Orders - JOSTIN ADDISON MD Cbc With Automated Diff (11/22/22 08:19) Comprehensive Metabolic Panel (11/22/22 08:19) Fibrin Degradation Products (11/22/22 08:19) Lactic Acid Analyzer (11/22/22 08:19) Magnesium (11/22/22 08:19) Procalcitonin (Pct) (11/22/22 08:19) Protime With Inr (11/22/22 08:19) Partial Thromboplastin Time (11/22/22 08:19) Ua Culture If Indicated (11/22/22 08:19) Probnp Fs (11/22/22 08:19) Troponin I Fs (11/22/22 08:19) Chest 1 View Ap/Pa Only (11/22/22 08:20) Ekg Tracing (11/22/22 08:21) Continuous Ekg Monitoring (11/22/22 08:21) Metoprolol Succinate (Xl) Tab (Toprol Xl (11/22/22 08:30) Covid 19 Inhouse Test (11/22/22 08:29) Influenza A And B By Pcr (11/22/22 08:29) Diltiazem Drip Pre-Mix (Cardizem Drip Pr (11/22/22 09:32) Diltiazem Iv For Drip (Cardizem Iv For D (11/22/22 09:52) Ns (Ivpb) (Sodium Chloride 0.9% Ivpb Bag (11/22/22 09:53) Magnesium 1 Gm/100 Ml Ivpb (Magnesium Rubi (11/22/22 10:00) Bumetanide Injection (Bumex Injection) (11/22/22 10:00) Bumetanide Injection (Bumex Injection) (11/22/22 10:10) Iohexol Injection (Omnipaque 350 Mg/Ml 1 (11/22/22 10:30) Received Contrast (Hold Metformin- Contr (11/22/22 10:30) Sodium Chloride Flush (Catheter Flush Sy (11/22/22 10:30) Ns (Ivpb) (Sodium Chloride 0.9% Ivpb Bag (11/22/22 10:30) Ct Angio Chest W (R/O Pe) (11/22/22 10:12) Hydrocodone/Apap 5/325 Tablet (Lortab 5 (11/22/22 10:45) Acetaminophen Tablet/Caplet (Tylenol T (11/22/22 11:00) Blood Culture (11/22/22 10:56) Doxycycline 100 Mg Iv (11/22/22 12:00) Medications Given in ED Current Medications Medications Dose Ordered Sig/Krystle Route Start Time Stop Time Status Last Admin Dose Admin Acetaminophen 325 mg ONCE ONCE PO 11/22/22 11:00 11/22/22 11:01 DC 11/22/22 11:01 325 MG Acetaminophen/ Hydrocodone Bitart 1 ea ONCE ONCE PO 11/22/22 10:45 11/22/22 10:46 DC 11/22/22 10:44 1 EA Bumetanide 0.5 mg ONCE ONCE IV 11/22/22 10:00 11/22/22 10:01 DC 11/22/22 10:11 0.5 MG Iohexol 100 ml ONCE ONCE IV 11/22/22 10:30 11/22/22 10:31 DC 11/22/22 10:33 100 ML Magnesium Sulfate/ Dextrose 100 ml @ 100 mls/hr ONCE ONCE IV 11/22/22 10:00 11/22/22 10:59 DC 11/22/22 10:11 100 MLS/HR Metoprolol Succinate 25 mg ONCE ONCE PO 11/22/22 08:30 11/22/22 08:31 DC 11/22/22 08:43 25 MG Sodium Chloride 10 ml NEEDED PRN IV 11/22/22 10:30 11/22/22 10:34 10 ML Sodium Chloride 100 ml ONCE ONCE IV 11/22/22 10:30 11/22/22 10:31 DC 11/22/22 10:33 100 ML Vital Signs/I&O 11/22/22 11/22/22 11/22/22 08:08 08:08 10:06 Temp 37.1 Pulse 107 109 Resp 26 B/P (MAP) 169/99 (122) 143/82 Pulse Ox 95 O2 Delivery Room Air Room Air Capillary Refill : Progress Note : Progress Note 1. GENERALIZED WEAKNESS: - CXR: Stable cardiomegaly - CBC/ CMP: see below. WBC is normal - UA negative - Fever of 100.4 in the ER, Ordered Tylenol and sent blood cultures. - Doxycycline 100mg iv STAT 2. A-FIB in RVR: - Pt is on Eliquis and is compliant with it - EKG: A-fib in RVR - Troponin: non-ischemic - Metoprolol 25mg STAT in ER since pt did not take it in the morning before coming to the ER - Cardizem drip started at 5mg/hr, -Patient needs to be admitted and only wants to go to a hospital and [place]. I have called multiple hospitals and no one has a bed. Patient is finally excepted at [facility] 3. NEW ONSET CONGESTIVE HEART FAILURE: - BNP: 1,448 - s. Alb is 2.9, low - Bumex 0.5mg iv 4. ELECTROLYTE DISTURBANCES: (A) HYPONATREMIA (B) HYPOMAGNESEMIA: - s. Na 130 and s. Mg is 1.4 - Fluid withheld due to fluid overload - Magnesium repleted 5. ELEVATED D-DIMER: - D-Dimer: 1.57 - CTA CHEST: negative for PE, see report - Low risk for clots since pt is on a blood thinner ECG Initial ECG Impression Date: Nov 22, 2022 Initial ECG Impression Time: 08:28 Initial ECG Rate: 114 Initial ECG Rhythm: A Fib/Flutter Initial ECG Impression: Atrial Fibrillation w/RVR Diagnostic Imaging Diagonstic Imaging: Xray, CT Plain Films/CT/US/NM/MRI: chest Comments [facility], [place] NAME: ELDA BOYER [facility] REC#: [id number] PT STATUS: REG ER : 1945 PHYSICIAN: JOSTIN ADDISON MD ADMIT DATE: 11/22/22/ER FS Signed Date of Exam:11/22/22 CT ANGIO CHEST W (R/O PE) Technique: CTA of the chest was performed with contrast with timing optimized for evaluation of the pulmonary arteries. 3-D reformats were obtained and reviewed. Disc reduction techniques were utilized. Reason for exam: Elevated D-dimer. Chest pain. COMPARISON: Chest radiograph performed the same day. FINDINGS: This helical CT pulmonary angiogram is diagnostic to the subsegmental level branches of the pulmonary artery and demonstrates no pulmonary emboli. The heart size is normal. There is no pericardial effusion. There is no axillary, mediastinal, or hilar adenopathy. Mild dependent opacities are seen in the lung bases. No focal consolidation or mass. No central endobronchial obstructing lesions. No pleural effusion or pneumothorax. Osseous structures appear normal. Limited views of the upper abdomen are unremarkable. Small hiatal hernia is present. Cholelithiasis is seen in a decompressed gallbladder. IMPRESSION: 1. No acute pulmonary embolus. 2. Small amount of dependent atelectasis. 3. Small hiatal hernia. 4. Cholelithiasis. Dictated by: Dictated on workstation # [id number] Dict: 11/22/22 1040 Trans: 11/22/22 1049 SA [id number] Interpreted by: FRANCISCO TEJADA DO Electronically signed by: FRANCISCO TEJADA DO 11/22/22 1049 [facility], [place] NAME: ELDA BOYER [facility] REC#: [id number] PT STATUS: REG ER : 1945 PHYSICIAN: JOSTIN ADDISON MD ADMIT DATE: 11/22/22/ER FS Draft Date of Exam:11/22/22 CHEST 1 VIEW AP/PA ONLY CLINICAL INDICATION: Patient has had generalized weakness for 2 to 3 days and increased cough last night. Patient with recent admission to another hospital with atrial fibrillation and RVR. EXAM: Portable chest x-ray upright view. COMPARISON: Chest x-ray dated 11/14/2022. FINDINGS: Lungs/pleura: Lungs are clear. There is no pneumothorax. There is no pleural effusion. Mediastinum: Unremarkable. Pulmonary vasculature: Pulmonary vasculature appears less congested on this exam compared to prior study. There is no significant pulmonary vascular congestion seen on this exam. Heart: Stable cardiomegaly. Bones/extrathoracic soft tissue: There are degenerative spurs involving the thoracic spine. IMPRESSION: 1: There is no lung infiltrate. 2: There is cardiomegaly with no significant pulmonary vascular congestion. Dictated on workstation # [id number] Dict: 11/22/22 0858 Trans: 11/22/22 0902 MINA [id number] Interpreted by: ALBA ROBLES MD Electronically signed by: Departure Communication (Admissions) Time/Spoke to Admitting Phy: 11:[address] [facility] Impression Primary Impression: Generalized weakness Additional Impressions: New onset of congestive heart failure Hypomagnesemia Hyponatremia Elevated d-dimer Disposition: SHT-TRM HOSP Condition: Stable Admissions Decision to Admit Reason: Admit from ER (General) Decision to Admit/Date: Nov 22, 2022 Time/Decision to Admit Time: 10:00 Transfer Transfer Reason: Patient preference (Also exceeds level of care) Time Spoke to Accepting Phy: 11:05 Transfer Progress Notes Accepted to [facility]. Discussed with resident Dr Rivera, and his attending is Dr Reza. Transfer Facility: [facility] Method of Transfer: EMS Departure-Patient Inst. Referrals: RAFAT PINO MD (PCP) Primary Care Physician JOSTIN ADDISON MD Nov 22, 2022 08:19
[2022-11-22 08:31] LABS: HEMATOCRIT 44 % (40-54); HEMOGLOBIN 14.7 g/dL (13.3-17.7); MEAN CORPUSCULAR HEMOGLOBIN 27 pg (25-34); MEAN CORPUSCULAR HGB CONC 34 g/dL (32-36); MEAN CORPUSCULAR VOLUME 81 fL (80-99); MEAN PLATELET VOLUME 10.2 fL (9.0-12.2); PLATELET COUNT 93 10^3/uL (130-400); WHITE BLOOD COUNT 7.7 10^3/uL (4.3-11.0)
[2022-11-22 08:32] LABS: BASOPHILS # (AUTO) 0.1 10^3/uL (0.0-0.1); BASOPHILS % (AUTO) 1 % (0-10); EOSINOPHILS # (AUTO) 0.1 10^3/uL (0.0-0.3); EOSINOPHILS % (AUTO) 1 % (0-10); LYMPHOCYTES # (AUTO) 2.1 X 10^3 (1.0-4.0); LYMPHOCYTES % (AUTO) 27 % (12-44); MONOCYTES # (AUTO) 0.7 X 10^3 (0.0-1.0); MONOCYTES % (AUTO) 9 % (0-12); NEUTROPHILS # (AUTO) 4.7 X 10^3 (1.8-7.8); NEUTROPHILS % (AUTO) 60 % (42-75)
[2022-11-22 08:52] LABS: BILIRUBIN,URINE NEGATIVE (NEGATIVE); CLARITY,URINE CLEAR; COLOR,URINE YELLOW; GLUCOSE, URINE (UA) NEGATIVE (NEGATIVE); KETONES,URINE NEGATIVE (NEGATIVE); LEUKOCYTE ESTERASE ,URINE NEGATIVE (NEGATIVE); NITRITE,URINE NEGATIVE (NEGATIVE); PROTEIN,URINE 1+ (NEGATIVE)
--- NOTE | 2022-11-22 09:03 | Diagnostic Imaging Report ---
CLINICAL INDICATION: Patient has had generalized weakness for 2 to 3 days and increased cough last night. Patient with recent admission to another hospital with atrial fibrillation and RVR. EXAM: Portable chest x-ray upright view. COMPARISON: Chest x-ray dated 11/14/2022. FINDINGS: Lungs/pleura: Lungs are clear. There is no pneumothorax. There is no pleural effusion. Mediastinum: Unremarkable. Pulmonary vasculature: Pulmonary vasculature appears less congested on this exam compared to prior study. There is no significant pulmonary vascular congestion seen on this exam. Heart: Stable cardiomegaly. Bones/extrathoracic soft tissue: There are degenerative spurs involving the thoracic spine. IMPRESSION: 1: There is no lung infiltrate. 2: There is cardiomegaly with no significant pulmonary vascular congestion. Dictated by: Dictated on workstation # [id number]
[2022-11-22 09:12] LABS: BACTERIA,URINE NEGATIVE /HPF; WBC,URINE RARE /HPF
[2022-11-22 09:15] LABS: BUN/CREATININE RATIO 11; CALCIUM 8.5 MG/DL (8.5-10.1); CARBON DIOXIDE 26 MMOL/L (21-32); CHLORIDE 94 MMOL/L (98-107); GFR ESTIMATED 63; GLUCOSE 116 MG/DL (70-105); POTASSIUM 3.9 MMOL/L (3.6-5.0); SODIUM 130 MMOL/L (135-145)
[2022-11-22 09:16] LABS: ALANINE AMINOTRANSFERASE 24 U/L (0-55); ALBUMIN 2.9 GM/DL (3.2-4.5); ALKALINE PHOSPHATASE 75 U/L (40-136); BILIRUBIN,TOTAL 1.4 MG/DL (0.1-1.0); MAGNESIUM 1.4 MG/DL (1.6-2.4); TOTAL PROTEIN 5.8 GM/DL (6.4-8.2)
[2022-11-22] MEDS ORDERED: dilTIAZem DRIP PRE-MIX 125 ML IV STA (09:32)
[2022-11-22] MEDS ORDERED: NS (IVPB) 100 ML ONE (09:53)
[2022-11-22] MEDS ORDERED: MAGNESIUM 1 GM/100 ML IVPB 100 ML IV ONE (10:00)
[2022-11-22] MEDS ORDERED: BUMETANIDE 1 MG/4 ML (BUMEX) VIAL IV ONE (10:00)
[2022-11-22 10:01] LABS: FIBRIN DEGRADATION PRODUCTS 1.57 UG/ML (0.00-0.49)
[2022-11-22] MEDS ORDERED: BUMETANIDE 2.5 MG/10 ML (BUMEX) VIAL ONE (10:10)
[2022-11-22] MEDS ORDERED: NS 100 ML (IVPB) BAG IV ONE (10:30)
[2022-11-22] MEDS ORDERED: HOLD METFORMIN - RECEIVED CONTRAST 20 ML VIAL IV SCH (10:30)
[2022-11-22] MEDS ORDERED: IOHEXOL 350 MG/ML 100 ML (OMNIPAQUE 350) VIAL IV ONE (10:30)
[2022-11-22] MEDS ORDERED: CATHETER FLUSH 10 ML SYR IV PRN (10:30)
[2022-11-22] MEDS ORDERED: HYDROcodone/APAP 5 MG/325 MG (LORTAB) TAB PO ONE (10:45)
--- NOTE | 2022-11-22 10:45 | Diagnostic Imaging Report ---
Technique: CTA of the chest was performed with contrast with timing optimized for evaluation of the pulmonary arteries. 3-D reformats were obtained and reviewed. Disc reduction techniques were utilized. Reason for exam: Elevated D-dimer. Chest pain. COMPARISON: Chest radiograph performed the same day. FINDINGS: This helical CT pulmonary angiogram is diagnostic to the subsegmental level branches of the pulmonary artery and demonstrates no pulmonary emboli. The heart size is normal. There is no pericardial effusion. There is no axillary, mediastinal, or hilar adenopathy. Mild dependent opacities are seen in the lung bases. No focal consolidation or mass. No central endobronchial obstructing lesions. No pleural effusion or pneumothorax. Osseous structures appear normal. Limited views of the upper abdomen are unremarkable. Small hiatal hernia is present. Cholelithiasis is seen in a decompressed gallbladder. IMPRESSION: 1. No acute pulmonary embolus. 2. Small amount of dependent atelectasis. 3. Small hiatal hernia. 4. Cholelithiasis. Dictated by: Dictated on workstation # [id number]
[2022-11-22] MEDS ORDERED: ACETAMINOPHEN 325 MG TABLET PO ONE (11:00)
[2022-11-22] MEDS ORDERED: DOXYCYCLINE INJECTION 100 MG in NS (IVPB) 100 ML IV ONE (12:00)
[2022-11-22 13:27] VITALS: BP 98/62
== END 2022-11-22 13:17 | disposition short-term general hospital (02) ==
LOC: EDUNIT# 08:07 → ER FS 08:08
DX: E83.42 Hypomagnesemia (principal); I11.0 Hypertensive heart disease with heart failure; I50.9 Heart failure, unspecified; E87.1 Hypo-osmolality and hyponatremia; R79.1 Abnormal coagulation profile; I48.0 Paroxysmal atrial fibrillation; Z79.01 Long term (current) use of anticoagulants; Z86.16 Personal history of COVID-19; Z88.6 Allergy status to analgesic agent; Z88.5 Allergy status to narcotic agent; Z88.1 Allergy status to other antibiotic agents; Z20.822 Contact with and (suspected) exposure to COVID-19
CPT/HCPCS: 36415; 71045; 71275; 80053; 81000; 83605; 83735; 83880; 84145; 84484; 85025; 85379; 85610; 85730; 87040; 87636; Q9967

== ENCOUNTER → 2023-01-28 | Outpatient (CLI) | payer MEDICARE ==
--- NOTE | 2023-01-28 14:40 | Diagnostic Imaging Report ---
EXAM: LUMBAR SPINE 2 OR 3 VIEW INDICATION: Back pain. Lumbar spine fusion. COMPARISON: 03/30/2020. FINDINGS: Posterior instrumentation at L2 through the sacroiliac joints with interbody fusions at L2-L3 and L4-S1. L2-S1 with laminectomies. Hardware components are intact. No evidence of loosening. Stable ventral positioning of interbody fusion L5-S1. Progressive erosive changes and osteophyte formation at L1-L2. There is now approximately 20-30% height loss of the L1 vertebral body anteriorly. Visualized pelvis is intact. Nonspecific bowel gas pattern. IMPRESSION: 1. Extensive postoperative changes at L2-S1 are stable. No evidence of hardware failure. 2. Interval progression of erosive endplate changes and osteophyte formation at L1-L2. Although this may be due to spondylotic change/adjacent segment disease, recommend correlation with clinical findings as discitis osteomyelitis could have a similar appearance. This could be further investigated with MRI. Dictated by: Dictated on workstation # [id number]
--- NOTE | 2023-01-28 16:22 | Diagnostic Imaging Report ---
INDICATION: Weakness. Bilateral hip pain . COMPARISON: None. FINDINGS: Frontal radiographic view of the pelvis and multiple dedicated radiographic views of both hips were obtained. There is no fracture, dislocation, bone destruction, or radiopaque foreign body. The visualized pelvic osseous structures and the SI joints demonstrate no acute fracture or dislocation. Postoperative changes of previous lumbosacral fusion are noted. There is also extensive calcified arterial sclerosis.. The surrounding soft tissue structures are unremarkable. IMPRESSION: 1. Unremarkable radiographic exam of the pelvis and bilateral hips. Dictated by: Dictated on workstation # [id number]
--- NOTE | 2023-01-28 16:25 | Diagnostic Imaging Report ---
INDICATION: Bilateral knee pain. COMPARISON: None. FINDINGS: Multiple radiographic views of the bilateral knees were obtained and demonstrate no acute fracture or dislocation. No focal osseous lesions are seen. No significant joint effusion is seen. The surrounding soft tissue structures are unremarkable. There are no radiopaque foreign bodies. Note is made of extensive calcified arteriosclerosis. IMPRESSION: 1. Unremarkable radiographic exam of the bilateral knees. Dictated by: Dictated on workstation # [id number]
== END ==
LOC: RAD FS 13:38
PROVIDERS: ATTEND Internal Medicine Rheumatology
DX: M25.78 Osteophyte, vertebrae (principal); R29.898 Other symptoms and signs involving the musculoskeletal system; M25.561 Pain in right knee; M25.562 Pain in left knee; M25.551 Pain in right hip; M25.552 Pain in left hip; R53.1 Weakness
CPT/HCPCS: 72100; 73523

== ENCOUNTER 2023-04-19 10:06 | Emergency (ER) | payer MEDICARE ==
[2023-04-19] MEDS ORDERED: DOXYCYCLINE 100 MG (VIBRAMYCIN) TABLET PO STA (10:13)
[2023-04-19] MEDS ORDERED: cefTRIAXone IV/IM 1,000 MG in NS (IVPB) 50 ML IV ONE (10:15)
[2023-04-19] MEDS ORDERED: FUROSEMIDE 40 MG/4 ML INJ (LASIX) IVP ONE (10:15)
[2023-04-19] MEDS ORDERED: ACETAMINOPHEN 500 MG TAB (TYLENOL) PO ONE (10:15)
--- NOTE | 2023-04-19 10:20 | ED Respiratory ---
General Stated Complaint: COUGH; FEVER; GEN WEAKNESS Source: patient, family, old records Exam Limitations: no limitations History of Present Illness Date Seen by Provider: Apr 19, 2023 Time Seen by Provider: 10:08 Initial Comments 77-year-old male with past medical history most notable for A-fib on Xarelto and diltiazem coming in due to cough, shortness of breath, and general weakness. He developed a cough that was mildly productive last night with a fever. Congestion started prior to that. He coughed enough that he fell to the ground earlier today. Did not hit his head or neck, did not pass out, no neck or back pain. Has been ambulatory since then with assistance. Denies any lower extremity swelling or pain. Has not missed any doses of his Xarelto, and denies any prior history of DVT or PE. He also states that he has "long COVID". Otherwise denying any chest pain, abdominal pain, nausea, vomiting, focal weakness or numbness, headache, neck stiffness, rash, or any other concerns Allergies and Home Medications Allergies Coded Allergies: Sulfa (Sulfonamide Antibiotics) (Verified Allergy, Unknown, HIVES, 10/07/18) aspirin (Verified Allergy, Unknown, RASH, 10/07/18) cephalexin (Verified Allergy, Unknown, ANAPHYLAXIS, 10/07/18) oxycodone (Verified Allergy, Unknown, vomiting, 10/07/18) Patient Home Medication List Home Medication List Reviewed: Yes Abatacept/Maltose (Orencia 250 mg Vial) 250 Mg Vial, 750 MG IV MONTHLY, (Reported) Entered as Reported by: FANNY FLOYD on 10/07/18 1316 Alprazolam (Xanax) 0.5 Mg Tablet, 0.5 MG PO HS, (Reported) Entered as Reported by: FANNY FLOYD on 10/07/18 1316 Amlodipine Besylate/Benazepril (Amlodipine-Benazepril 10-20 mg) 1 Each Capsule, 1 CAP PO DAILY, (Reported) Entered as Reported by: FANNY FLOYD on 10/07/18 1316 Bisacodyl (Dulcolax) 10 Mg Supp.rect, 10 MG RC BID PRN for CONSTIPATION-1ST LINE Prescribed by: ABDIEL DELGADILLO on 10/15/18 1133 Cholecalciferol (Vitamin D3) (Vitamin D3) 2,000 Unit Capsule, 2,000 UNIT PO DAILY, (Reported) Entered as Reported by: FANNY FLOYD on 10/07/18 1316 Dexlansoprazole (Dexilant) 60 Mg Cap., 60 MG PO DAILY, (Reported) Entered as Reported by: FANNY FLOYD on 10/07/18 131 Finasteride (Finasteride) 5 Mg Tablet, 5 MG PO DAILY, (Reported) Entered as Reported by: FANNY FLOYD on 10/07/18 131 Hydralazine HCl (Hydralazine HCl) 25 Mg Tablet, 25 MG PO BID, (Reported) Entered as Reported by: FANNY FLOYD on 10/07/18 131 Hydrocodone Bit/Acetaminophen (Lortab 5 Mg Tablet) 1 Tab Tab, 1-2 TAB PO Q4H PRN for PAIN-MODERATE TO SEVERE Prescribed by: MERCY JOHNSON on 10/15/18 0639 Lactulose (Lactulose) 20 Gm/30 Ml Solution, 10 GM PO BID Prescribed by: ABDIEL DELGADILLO on 10/15/18 1133 Latanoprost (Latanoprost) 2.5 Ml Drops, 1 DROP OU HS, (Reported) Entered as Reported by: FANNY FLOYD on 10/07/18 1403 Leflunomide (Leflunomide) 20 Mg Tablet, 20 MG PO DAILY, (Reported) Entered as Reported by: MATTEO LINARES on 10/06/18 1052 Levofloxacin (Levofloxacin) 750 Mg Tablet, 750 MG PO DAILY Prescribed by: WADE LOPEZ on 04/19/23 1152 Metoprolol Succinate (Metoprolol Succinate) 25 Mg Tab.er.24h, 25 MG PO DAILY, (Reported) Entered as Reported by: FANNY FLOYD on 10/07/18 1316 Naloxegol Oxalate (Movantik) 12.5 Mg Tablet, 12.5 MG PO DAILY PRN for CONSTIPATION FROM PAIN MEDS, (Reported) Entered as Reported by: FANNY FLOYD on 10/07/18 1403 Ondansetron (Ondansetron Odt) 8 Mg Tab.rapdis, 8 MG PO Q6H PRN for NAUSEA/VOMITING-1ST LINE Prescribed by: MERCY JOHNSON on 10/15/18 0639 Prednisone (Prednisone) 5 Mg Tablet, 5 MG PO DAILY, (Reported) Entered as Reported by: FANNY FLOYD on 10/07/18 1316 Tamsulosin HCl (Tamsulosin HCl) 0.4 Mg Cap.er.24h, 0.4 MG PO DAILY, (Reported) Entered as Reported by: FANNY FLOYD on 10/07/18 1316 Review of Systems Review of Systems Constitutional: fever EENTM: nose congestion Respiratory: cough Cardiovascular: No chest pain Gastrointestinal: No abdominal pain Genitourinary: no symptoms reported Musculoskeletal: no symptoms reported Skin: no symptoms reported Psychiatric/Neurological: No Symptoms Reported Hematologic/Lymphatic: No Symptoms Reported Past Osxvlqh-Gfnikl-Kaznks Hx Patient Social History Substance use?: No Seasonal Allergies Seasonal Allergies: Yes Past Medical History Surgery/Hospitalization HX: Rheumatoid Arthritis, Hypertension, Anxiety, Paroxysmal Atrial Fibrillation, Long COVID-19 Surgeries: Yes (back sx x2, ) Orthopedic Respiratory: No Currently Using CPAP: No Cardiac: Yes (recent dx of afib during anesthesia on 09/15) Atrial Fibrillation, High Cholesterol, Hypertension Neurological: No Neuropathy Genitourinary: No Benign Prostatic Hyperpl Gastrointestinal: No Musculoskeletal: Yes Arthritis, Rheumatoid Arthritis, Chronic Back Pain Endocrine: No HEENT: Yes (cataracts removed, glasses) Cancer: Yes Skin Psychosocial: No Integumentary: No Blood Disorders: No Family Medical History Arthritis 19 MOTHER Asthma 19 FATHER Dementia 19 FATHER Hypertension 19 FATHER Myocardial infarction 19 FATHER Parkinson's disease 19 FATHER Hypertension Physical Exam Vital Signs - First Documented Capillary Refill : Height: 5'8.00" Weight: 200lbs. 0.0oz. 90.822681xw; 32.00 BMI Method: General Appearance: WD/WN, no apparent distress Eyes: Bilateral Eye Normal Inspection HEENT: PERRL/EOMI, normal ENT inspection, pharynx normal Neck: non-tender, full range of motion, supple, normal inspection, other (No meningismus) Respiratory: chest non-tender, no respiratory distress, no accessory muscle use, crackles Cardiovascular: tachycardia, irregularly irregular Gastrointestinal: normal bowel sounds, non tender, soft; No distended, No guarding Extremities: normal range of motion, non-tender, no calf tenderness, normal capillary refill, pedal edema Neurologic/Psychiatric: no motor/sensory deficits, alert, normal mood/affect, oriented x 3 Skin: normal color, warm/dry Focused Exam Lactate Level 04/19/23 10:10: Lactic Acid Level 1.42 Lactic Acid Level Laboratory Tests Test 04/19/23 10:10 Lactic Acid Level 1.42 MMOL/L (0.50-2.00) Progress/Results/Core Measures Suspected Sepsis SIRS Temperature: Pulse: Respiratory Rate: Laboratory Tests 04/19/23 10:10: White Blood Count 8.6 Blood Pressure / Mean: 04/19/23 10:10: Lactic Acid Level 1.42 Laboratory Tests 04/19/23 10:10: Creatinine 1.08, INR Comment 2.2H, Platelet Count 138, Total Bilirubin 0.7 Results/Orders Lab Results Laboratory Tests Test 04/19/23 10:10 04/19/23 11:00 Range/Units White Blood Count 8.6 4.3-11.0 10^3/uL Red Blood Count 5.22 4.30-5.52 10^6/uL Hemoglobin 13.3 13.3-17.7 g/dL Hematocrit 42 40-54 % Mean Corpuscular Volume 81 80-99 fL Mean Corpuscular Hemoglobin 26 25-34 pg Mean Corpuscular Hemoglobin Concent 32 32-36 g/dL Red Cell Distribution Width 17.6 H 10.0-14.5 % Platelet Count 138 130-400 10^3/uL Mean Platelet Volume 10.7 9.0-12.2 fL Immature Granulocyte % (Auto) 1 % Neutrophils (%) (Auto) 71 42-75 % Lymphocytes (%) (Auto) 15 12-44 % Monocytes (%) (Auto) 12 0-12 % Eosinophils (%) (Auto) 1 0-10 % Basophils (%) (Auto) 1 0-10 % Neutrophils # (Auto) 6.1 1.8-7.8 10^3/uL Lymphocytes # (Auto) 1.2 1.0-4.0 10^3/uL Monocytes # (Auto) 1.0 0.0-1.0 10^3/uL Eosinophils # (Auto) 0.1 0.0-0.3 10^3/uL Basophils # (Auto) 0.0 0.0-0.1 10^3/uL Immature Granulocyte # (Auto) 0.1 0.0-0.1 10^3/uL Prothrombin Time 25.2 H 12.2-14.7 SEC INR Comment 2.2 H 0.8-1.4 Activated Partial Thromboplast Time 41 H 24-35 SEC Sodium Level 140 135-145 MMOL/L Potassium Level 3.6 3.6-5.0 MMOL/L Chloride Level 103 98-107 MMOL/L Carbon Dioxide Level 27 21-32 MMOL/L Anion Gap 10 5-14 MMOL/L Blood Urea Nitrogen 14 7-18 MG/DL Creatinine 1.08 0.60-1.30 MG/DL Estimat Glomerular Filtration Rate 72 BUN/Creatinine Ratio 13 Glucose Level 101 70-105 MG/DL Lactic Acid Level 1.42 0.50-2.00 MMOL/L Calcium Level 8.9 8.5-10.1 MG/DL Corrected Calcium 9.1 8.5-10.1 MG/DL Total Bilirubin 0.7 0.1-1.0 MG/DL Aspartate Amino Transf (AST/SGOT) 16 5-34 U/L Alanine Aminotransferase (ALT/SGPT) 5 0-55 U/L Alkaline Phosphatase 92 40-136 U/L Troponin I < 0.30 <0.30 NG/ML Pro-B-Type Natriuretic Peptide 4605.0 H <450.0 PG/ML Total Protein 6.3 L 6.4-8.2 GM/DL Albumin 3.7 3.2-4.5 GM/DL SARS-CoV-2 RNA (RT-PCR) Not Detected Not Detecte My Orders Orders - WADE LOPEZ MD Cbc With Automated Diff (04/19/23 10:13) Comprehensive Metabolic Panel (04/19/23 10:13) Blood Culture (04/19/23 10:13) Sputum Culture (04/19/23 10:13) Protime With Inr (04/19/23 10:13) Partial Thromboplastin Time (04/19/23 10:13) Chest 1 View Ap/Pa Only (04/19/23 10:13) Ed Iv/Invasive Line Start (04/19/23 10:13) Ekg Tracing (04/19/23 10:13) Vital Signs Adult Sepsis Patie Q15M (04/19/23 10:13) O2 (04/19/23 10:13) Remove Rings In Anticipation O (04/19/23 10:13) Lactic Acid Analyzer (04/19/23 10:13) Ceftriaxone Iv/Im (Rocephin Iv/Im) (04/19/23 10:15) Troponin I Fs (04/19/23 10:13) Probnp Fs (04/19/23 10:13) Doxycycline Hyclate Tablet (Vibramycin T (04/19/23 10:13) Furosemide Injection (Lasix Injection) (04/19/23 10:15) Acetaminophen Tablet (Tylenol Tablet) (04/19/23 10:15) Covid 19 Inhouse Test (04/19/23 10:13) Catheter(Urinary) Insert & Ass 15 (04/19/23 11:10) Lidocaine 2% (Urojet) (Xylocaine Urojet) (04/19/23 11:15) Medications Given in ED Current Medications Medications Dose Ordered Sig/Krystle Route Start Time Stop Time Status Last Admin Dose Admin Acetaminophen 1,000 mg ONCE ONCE PO 04/19/23 10:15 04/19/23 10:18 DC 04/19/23 10:40 1,000 MG Ceftriaxone Sodium 1000 mg/ Sodium Chloride 50 ml @ 100 mls/hr ONCE ONCE IV 04/19/23 10:15 04/19/23 10:44 DC 04/19/23 10:40 100 MLS/HR Furosemide 40 mg ONCE ONCE IVP 04/19/23 10:15 04/19/23 10:18 DC 04/19/23 10:40 40 MG Vital Signs/I&O 04/19/23 04/19/23 04/19/23 04/19/23 10:08 10:08 10:40 11:58 Temp 37.3 37.3 Pulse 99 79 Resp 17 17 B/P (MAP) 167/94 (118) 118/65 Pulse Ox 92 92 O2 Delivery Room Air Room Air Room Air Capillary Refill : Progress Note : Progress Note 77-year-old male with above history coming in after coughing episode putting him down to the ground after falling slowly. The patient was in A-fib with fairly controlled RVR rates upper 90s to low 100s. Oxygen saturation ranged between 88% and 94% while being monitored. He was on oxygen briefly while in the emergency department at 2 L. On my exam he had lower extremity edema that was equal with no redness or pain in his calves, and he had crackles bilaterally. Physical exam mostly consistent with likely volume overload. He never did hit his head or pass out. Since he went to the ground slow enough, I do not think he needs any type of CT imaging of his head or neck. EKG ordered and interpreted by me showing no acute ischemic changes. Chest x-ray on my interpretation with enlarged cardiac silhouette and likely mild pulmonary edema compared to prior x-ray. Given the fever earlier, he was empirically treated with antibiotics here IV. Given that he appeared volume overloaded, he was given IV Lasix with good response to that on reassessment. Labs were significant for normal white blood cell count, normal creatinine, negative troponin, and elevated BNP over 4000. Findings consistent with likely heart failure exacerbation versus potentially pneumonia. I discussed the case with the hospitalist on-call for Dr. Pino, and they do not have the ability to admit the patient at this time. Since the patient was unable to go to his typical hospital, he did not want to be admitted. With deep breathing while I was in the room, his oxygen saturation goes up to 94% while on room air. I discussed breathing exercises at home since he does seem to be breathing shallowly. Since he had such a good response to Lasix, I will have him double his Lasix for the next couple of days. I will also send him home on antibiotics in case there was a bacterial pneumonia that was missed on chest x-ray. He does appear improved compared to when he came in earlier. I believe he is otherwise stable [facility] with outpatient follow-up. He was sent home with strict return precautions. ECG Initial ECG Impression Date: Apr 19, 2023 Initial ECG Impression Time: 10:20 Initial ECG Rate: 102 Initial ECG Rhythm: A Fib/Flutter Comment Wide QRS with a right bundle branch block, no STEMI, appears similar to prior EKGs in November Diagnostic Imaging Diagonstic Imaging: Xray (chest) Comments NAME: ELDA BOYER Vinnie [facility] REC#: [id number] PT STATUS: REG ER : 1945 PHYSICIAN: WADE LOPEZ MD ADMIT DATE: 04/19/23/ER FS Draft Date of Exam:04/19/23 CHEST 1 VIEW AP/PA ONLY INDICATION: Cough. COMPARISON: 11/22/2022. FINDINGS: There are chronic pulmonary interstitial changes within the lungs. There is no new pneumonia. There is no edema. There is no pneumothorax. Heart size and mediastinal contours are appropriate. Pulmonary vascularity is normal. There is no acute osseous abnormality. IMPRESSION: 1. Stable appearance of the chest. No new or acute cardiopulmonary process demonstrated. Dictated on workstation # [id number] Dict: 04/19/23 1035 Trans: 04/19/23 1047 [id number] Interpreted by: SABINA NICOLE MD Electronically signed by: Departure Impression Primary Impression: Pulmonary edema Qualified Codes: J81.0 - Acute pulmonary edema Additional Impression: Pneumonia Qualified Codes: J18.9 - Pneumonia, unspecified organism Disposition: HOME, SELF-CARE Condition: Stable Departure-Patient Inst. Decision time for Depature: 12:00 Referrals: RAFAT PINO MD (PCP) Primary Care Physician Patient Instructions: Pneumonia, Adult ED Add. Discharge Instructions: With your fever I am concerned you could have an infection in your lungs. You will be on antibiotics for the next week. There also appears to be extra fluid in your lungs. Please also double the dose of your Lasix for the next 3 days. If you are not having improvement by Friday, please call your amplifier mechanic. Of course, if you have any concerning symptoms that are life-threatening before then, please present to an ER sooner Scripts Levofloxacin (Levofloxacin) 750 Mg Tablet 750 MG PO DAILY for 7 Days, #7 TAB Prov: WADE LOPEZ MD 04/19/23 WADE LOPEZ MD Apr 19, 2023 10:20
[2023-04-19 10:30] LABS: BASOPHILS % (AUTO) 1 % (0-10); EOSINOPHILS # (AUTO) 0.1 10^3/uL (0.0-0.3); EOSINOPHILS % (AUTO) 1 % (0-10); HEMATOCRIT 42 % (40-54); HEMOGLOBIN 13.3 g/dL (13.3-17.7); LYMPHOCYTES # (AUTO) 1.2 10^3/uL (1.0-4.0); LYMPHOCYTES % (AUTO) 15 % (12-44); MEAN CORPUSCULAR HEMOGLOBIN 26 pg (25-34); MEAN CORPUSCULAR HGB CONC 32 g/dL (32-36); MEAN CORPUSCULAR VOLUME 81 fL (80-99); MEAN PLATELET VOLUME 10.7 fL (9.0-12.2); MONOCYTES % (AUTO) 12 % (0-12); NEUTROPHILS # (AUTO) 6.1 10^3/uL (1.8-7.8); NEUTROPHILS % (AUTO) 71 % (42-75); PLATELET COUNT 138 10^3/uL (130-400); WHITE BLOOD COUNT 8.6 10^3/uL (4.3-11.0)
[2023-04-19 10:43] LABS: INR 2.2 (0.8-1.4); PROTHROMBIN TIME PATIENT 25.2 SEC (12.2-14.7)
--- NOTE | 2023-04-19 10:48 | Diagnostic Imaging Report ---
INDICATION: Cough. COMPARISON: 11/22/2022. FINDINGS: There are chronic pulmonary interstitial changes within the lungs. There is no new pneumonia. There is no edema. There is no pneumothorax. Heart size and mediastinal contours are appropriate. Pulmonary vascularity is normal. There is no acute osseous abnormality. IMPRESSION: 1. Stable appearance of the chest. No new or acute cardiopulmonary process demonstrated. Dictated by: Dictated on workstation # [id number]
[2023-04-19 10:53] LABS: ALANINE AMINOTRANSFERASE 5 U/L (0-55); ALBUMIN 3.7 GM/DL (3.2-4.5); ALKALINE PHOSPHATASE 92 U/L (40-136); BILIRUBIN,TOTAL 0.7 MG/DL (0.1-1.0); BUN/CREATININE RATIO 13; CALCIUM 8.9 MG/DL (8.5-10.1); CARBON DIOXIDE 27 MMOL/L (21-32); CHLORIDE 103 MMOL/L (98-107); CREATININE SERUM 1.08 MG/DL (0.60-1.30); GFR ESTIMATED 72; GLUCOSE 101 MG/DL (70-105); POTASSIUM 3.6 MMOL/L (3.6-5.0); SODIUM 140 MMOL/L (135-145); TOTAL PROTEIN 6.3 GM/DL (6.4-8.2)
[2023-04-19] MEDS ORDERED: LIDOCAINE UROJET 2% GEL 10 ML PKG TOP ONE (11:15)
[2023-04-19] MEDS ORDERED: LEVO750T PO (11:52)
[2023-04-19 11:58] VITALS: BP 118/65
== END 2023-04-19 12:00 | disposition home or self-care (01) ==
LOC: EDUNIT# 10:06 → ER FS 10:07
DX: J81.1 Chronic pulmonary edema (principal); J18.9 Pneumonia, unspecified organism; U09.9 Post COVID-19 condition, unspecified; I48.0 Paroxysmal atrial fibrillation; R79.89 Other specified abnormal findings of blood chemistry; Z79.01 Long term (current) use of anticoagulants; Z20.822 Contact with and (suspected) exposure to COVID-19; Z88.2 Allergy status to sulfonamides
CPT/HCPCS: 36415; 71045; 80053; 83605; 83880; 84484; 85025; 85610; 85730; 87040; 87636; 93005

== ENCOUNTER 2023-08-11 12:42 | Emergency (ER) | payer MEDICARE ==
[~2023-08-11] VITALS: Ht 172 cm; Wt 91.0 kg
[~2023-08-11 12:42] MED LIST changes: +LEVO750T PO
--- NOTE | 2023-08-11 12:59 | ED Integumentary General ---
General Chief Complaint: Skin/Wound Problems Stated Complaint: RT FOOT WOUND Source: patient Exam Limitations: no limitations History of Present Illness Date Seen by Provider: Aug 11, 2023 Time Seen by Provider: 12:47 Initial Comments 77-year-old male with diabetes mellitus and peripheral vascular disease presents to the emergency department today for a wound on his right foot that has opened up. He had all of the toes removed on his right foot about [address] Gus Sosa, traffic signal supervisor maintenance at [facility]. He had a home health nurse come and do a dressing change today and informed him that the wound had opened up. They called the office of the traffic signal supervisor maintenance and they were not able to see him until tomorrow afternoon and thus recommended he come to the emergency department for evaluation. He is still on antibiotics. He denies any fevers chills or drainage. All other systems reviewed and negative except documented per HPI. Voice recognition software was used to help create this chart Allergies and Home Medications Allergies Coded Allergies: Sulfa (Sulfonamide Antibiotics) (Verified Allergy, Unknown, HIVES, 10/07/18) aspirin (Verified Allergy, Unknown, RASH, 10/07/18) cephalexin (Verified Allergy, Unknown, ANAPHYLAXIS, 10/07/18) oxycodone (Verified Allergy, Unknown, vomiting, 10/07/18) Patient Home Medication List Home Medication List Reviewed: Yes Abatacept/Maltose (Orencia 250 mg Vial) 250 Mg Vial, 750 MG IV MONTHLY, (Reported) Entered as Reported by: FANNY FLOYD on 10/07/18 1316 Alprazolam (Xanax) 0.5 Mg Tablet, 0.5 MG PO HS, (Reported) Entered as Reported by: FANNY FLOYD on 10/07/18 1316 Amlodipine Besylate/Benazepril (Amlodipine-Benazepril 10-20 mg) 1 Each Capsule, 1 CAP PO DAILY, (Reported) Entered as Reported by: FANNY FLOYD on 10/07/18 1316 Bisacodyl (Dulcolax) 10 Mg Supp.rect, 10 MG RC BID PRN for CONSTIPATION-1ST LINE Prescribed by: ABDIEL DELGADILLO on 10/15/18 1133 Cholecalciferol (Vitamin D3) (Vitamin D3) 2,000 Unit Capsule, 2,000 UNIT PO DAILY, (Reported) Entered as Reported by: FANNY FLOYD on 10/07/18 1316 Dexlansoprazole (Dexilant) 60 Mg Mark., 60 MG PO DAILY, (Reported) Entered as Reported by: AFNNY FLOYD on 10/07/18 131 Finasteride (Finasteride) 5 Mg Tablet, 5 MG PO DAILY, (Reported) Entered as Reported by: FANNY FLOYD on 10/07/18 131 Hydralazine HCl (Hydralazine HCl) 25 Mg Tablet, 25 MG PO BID, (Reported) Entered as Reported by: FANNY FLOYD on 10/07/18 1316 Hydrocodone Bit/Acetaminophen (Lortab 5 Mg Tablet) 1 Tab Tab, 1-2 TAB PO Q4H PRN for PAIN-MODERATE TO SEVERE Prescribed by: MERCY JOHNSON on 10/15/18 0639 Lactulose (Lactulose) 20 Gm/30 Ml Solution, 10 GM PO BID Prescribed by: ABDIEL DELGADILLO on 10/15/18 1133 Latanoprost (Latanoprost) 2.5 Ml Drops, 1 DROP OU HS, (Reported) Entered as Reported by: FANNY FLOYD on 10/07/18 1403 Leflunomide (Leflunomide) 20 Mg Tablet, 20 MG PO DAILY, (Reported) Entered as Reported by: MATTEO LINARES on 10/06/18 1052 Levofloxacin (Levofloxacin) 750 Mg Tablet, 750 MG PO DAILY Prescribed by: WADE LOPEZ on 04/19/23 1152 Metoprolol Succinate (Metoprolol Succinate) 25 Mg Tab.er.24h, 25 MG PO DAILY, (Reported) Entered as Reported by: FANNY FLOYD on 10/07/18 131 Naloxegol Oxalate (Movantik) 12.5 Mg Tablet, 12.5 MG PO DAILY PRN for CONSTIP ATION FROM PAIN MEDS, (Reported) Entered as Reported by: FANNY FLOYD on 10/07/18 1403 Ondansetron (Ondansetron Odt) 8 Mg Tab.rapdis, 8 MG PO Q6H PRN for NAUSEA/VOMITING-1ST LINE Prescribed by: MERCY JOHNSON on 10/15/18 0639 Prednisone (Prednisone) 5 Mg Tablet, 5 MG PO DAILY, (Reported) Entered as Reported by: FANNY FLOYD on 10/07/18 1316 Tamsulosin HCl (Tamsulosin HCl) 0.4 Mg Cap.er.24h, 0.4 MG PO DAILY, (Reported) Entered as Reported by: FANNY FLOYD on 10/07/18 1316 Review of Systems Review of Systems Constitutional: see HPI Past Gtahaxi-Ankqqw-Xaweau Hx Patient Social History Tobacco Use?: No Use of E-Cig and/or Vaping dev: No Substance use?: No Alcohol Use?: No Immunizations Up To Date First/Initial COVID19 Vaccinat: YES Seasonal Allergies Seasonal Allergies: Yes Past Medical History Surgery/Hospitalization HX: Rheumatoid Arthritis, Hypertension, Anxiety, Paroxysmal Atrial Fibrillation, Long COVID-19 Surgeries: Yes (back sx x2, ) Orthopedic Respiratory: No Currently Using CPAP: No Cardiac: Yes (recent dx of afib during anesthesia on 09/15) Atrial Fibrillation, High Cholesterol, Hypertension Neurological: No Neuropathy Genitourinary: No Benign Prostatic Hyperpl Gastrointestinal: No Musculoskeletal: Yes Arthritis, Rheumatoid Arthritis, Chronic Back Pain Endocrine: No HEENT: Yes (cataracts removed, glasses) Cancer: Yes Skin Psychosocial: No Integumentary: No Blood Disorders: No Family Medical History Arthritis 19 MOTHER Asthma 19 FATHER Dementia 19 FATHER Hypertension 19 FATHER Myocardial infarction 19 FATHER Parkinson's disease 19 FATHER Hypertension Physical Exam Vital Signs Vital Signs - First Documented 08/11/23 12:54 Temp 36.7 Pulse 82 Resp 18 B/P (MAP) 151/53 (85) Pulse Ox 98 O2 Delivery Room Air Capillary Refill : General Appearance: WD/WN, no apparent distress Cardiovascular: regular rate, rhythm, no murmur Respiratory: chest non-tender, lungs clear, normal breath sounds Skin: other (There is an approximately 4 cm area to the lateral aspect of the right foot wound that is slightly open. The subdermal stitches are still visible within the wound. There is no bleeding or purulence.) Progress/Results/Core Measures Results/Orders Vital Signs/I&O 08/11/23 12:54 Temp 36.7 Pulse 82 Resp 18 B/P (MAP) 151/53 (85) Pulse Ox 98 O2 Delivery Room Air Departure Communication (Admissions) I spoke to Dr. Sosa and his nurse practitioner. They recommended Betadine soaked gauze dressing now and they will see him in the clinic tomorrow afternoon. Continue his antibiotics. He is discharged in stable condition. He is to be nonweightbearing. Impression Primary Impression: Surgical wound dehiscence Qualified Codes: T81.31XA - Disruption of external operation (surgical) wound, not elsewhere classified, initial encounter Disposition: HOME, SELF-CARE Condition: Stable Departure-Patient Inst. Referrals: RAFAT PINO MD (PCP) Primary Care Physician Patient Instructions: Wound Care (DC) Add. Discharge Instructions: Keep the dressing in place until seen by Dr. Sosa tomorrow. Do not bear any weight on that foot whatsoever. Return to the emergency department for any severe concerns. All discharge instructions reviewed with patient and/or family. Voiced understanding. LAZARUS BARNES DO Aug 11, 2023 12:59
[2023-08-11 13:28] VITALS: BP 151/53
== END 2023-08-11 13:29 | disposition home or self-care (01) ==
LOC: ER FS 12:43
DX: T81.31XA Disruption of external operation (surgical) wound, not elsewhere classified, initial encounter (principal); Z28.311 Partially vaccinated for COVID-19; Z86.16 Personal history of COVID-19

== ENCOUNTER 2023-08-17 01:23 | Emergency (ER) | payer MEDICARE ==
[~2023-08-17] VITALS: Ht 172.7 cm; Wt 91.0 kg
[2023-08-17 01:45] LABS: BASOPHILS # (AUTO) 0.1 10^3/uL (0.0-0.1); BASOPHILS % (AUTO) 1 % (0-10); EOSINOPHILS # (AUTO) 0.2 10^3/uL (0.0-0.3); EOSINOPHILS % (AUTO) 2 % (0-10); HEMATOCRIT 27 % (40-54); LYMPHOCYTES % (AUTO) 31 % (12-44); MEAN CORPUSCULAR HEMOGLOBIN 25 pg (25-34); MEAN CORPUSCULAR HGB CONC 30 g/dL (32-36); MEAN CORPUSCULAR VOLUME 84 fL (80-99); MEAN PLATELET VOLUME 10.8 fL (9.0-12.2); MONOCYTES # (AUTO) 0.9 10^3/uL (0.0-1.0); MONOCYTES % (AUTO) 10 % (0-12); NEUTROPHILS # (AUTO) 5.3 10^3/uL (1.8-7.8); NEUTROPHILS % (AUTO) 55 % (42-75); PLATELET COUNT 221 10^3/uL (130-400); WHITE BLOOD COUNT 9.6 10^3/uL (4.3-11.0)
--- NOTE | 2023-08-17 01:59 | ED Syncope ---
General Chief Complaint: Dizziness/Syncope Stated Complaint: DEHYDRATED|DIZZYNESS History of Present Illness Date Seen by Provider: Aug 17, 2023 Time Seen by Provider: 01:35 Initial Comments 77 yr M with PMH of paroxysmal -Fib on Xarelto/DM2/PVD/ HTN/ sleep-walking/ Rheumatoid Arthritis, is brought in by EMS with c/o having a syncopal episode after he sleep walked to the bathroom and had a fall. Pt does not remember walking to the bathroom and thinks he was sleep-walking. 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 Pt has not had the best balance since the surgery. Denies fever and chills, cough, chest pain, palpitation, SOB, dizziness, headache. No known sick contacts. Allergies and Home Medications Allergies Coded Allergies: Penicillins (Verified Allergy, Unknown, 08/17/23) Sulfa (Sulfonamide Antibiotics) (Verified Allergy, Unknown, HIVES, 08/17/23) apixaban (Verified Allergy, Unknown, 08/17/23) aspirin (Verified Allergy, Unknown, RASH, 08/17/23) cephalexin (Verified Allergy, Unknown, ANAPHYLAXIS, 08/17/23) oxycodone (Verified Allergy, Unknown, vomiting, 08/17/23) Patient Home Medication List Home Medication List Reviewed: Yes Abatacept/Maltose (Orencia 250 mg Vial) 250 Mg Vial, 750 MG IV MONTHLY, (Reported) Entered as Reported by: FANNY FLOYD on 10/07/18 1316 Alprazolam (Xanax) 0.5 Mg Tablet, 0.5 MG PO HS, (Reported) Entered as Reported by: FANNY FOLYD on 10/07/18 1316 Amlodipine Besylate/Benazepril (Amlodipine-Benazepril 10-20 mg) 1 Each Capsule, 1 CAP PO DAILY, (Reported) Entered as Reported by: FANNY FLOYD on 10/07/18 1316 Bisacodyl (Dulcolax) 10 Mg Supp.rect, 10 MG RC BID PRN for CONSTIPATION-1ST LINE Prescribed by: ABDIEL DELGADILLO on 10/15/18 1133 Cholecalciferol (Vitamin D3) (Vitamin D3) 2,000 Unit Capsule, 2,000 UNIT PO DAILY, (Reported) Entered as Reported by: FANNY FLOYD on 10/07/18 1316 Dexlansoprazole (Dexilant) 60 Mg , 60 MG PO DAILY, (Reported) Entered as Reported by: FANNY FLOYD on 10/07/18 131 Finasteride (Finasteride) 5 Mg Tablet, 5 MG PO DAILY, (Reported) Entered as Reported by: FANNY FLOYD on 10/07/18 131 Hydralazine HCl (Hydralazine HCl) 25 Mg Tablet, 25 MG PO BID, (Reported) Entered as Reported by: FANNY FLOYD on 10/07/18 131 Hydrocodone Bit/Acetaminophen (Lortab 5 Mg Tablet) 1 Tab Tab, 1-2 TAB PO Q4H PRN for PAIN-MODERATE TO SEVERE Prescribed by: MERCY JOHNSON on 10/15/18 0639 Lactulose (Lactulose) 20 Gm/30 Ml Solution, 10 GM PO BID Prescribed by: ABDIEL DELGADILLO on 10/15/18 1133 Latanoprost (Latanoprost) 2.5 Ml Drops, 1 DROP OU HS, (Reported) Entered as Reported by: FANNY FLOYD on 10/07/18 1403 Leflunomide (Leflunomide) 20 Mg Tablet, 20 MG PO DAILY, (Reported) Entered as Reported by: MATTEO LINARES on 10/06/18 1052 Levofloxacin (Levofloxacin) 750 Mg Tablet, 750 MG PO DAILY Prescribed by: WADE LOPEZ on 04/19/23 1152 Metoprolol Succinate (Metoprolol Succinate) 25 Mg Tab.er.24h, 25 MG PO DAILY, (Reported) Entered as Reported by: FANNY FLOYD on 10/07/18 131 Naloxegol Oxalate (Movantik) 12.5 Mg Tablet, 12.5 MG PO DAILY PRN for CONST IPATION FROM PAIN MEDS, (Reported) Entered as Reported by: FANNY FLOYD on 10/07/18 1403 Ondansetron (Ondansetron Odt) 8 Mg Tab.rapdis, 8 MG PO Q6H PRN for NAUSEA/VOMITING-1ST LINE Prescribed by: MERCY JOHNSON on 10/15/18 0639 Prednisone (Prednisone) 5 Mg Tablet, 5 MG PO DAILY, (Reported) Entered as Reported by: FANNY FLOYD on 10/07/18 1316 Tamsulosin HCl (Tamsulosin HCl) 0.4 Mg Cap.er.24h, 0.4 MG PO DAILY, (Reported) Entered as Reported by: FANNY FLOYD on 10/07/18 1316 Review of Systems Constitutional: no symptoms reported Past Xoaghad-Cxeneo-Rxuisr Hx Immunizations Up To Date First/Initial COVID19 Vaccinat: YES Seasonal Allergies Seasonal Allergies: Yes Past Medical History Surgery/Hospitalization HX: Rheumatoid Arthritis, Hypertension, Anxiety, Paroxysmal Atrial Fibrillation, Long COVID-19 Surgeries: Yes (back sx x2, ) Orthopedic Respiratory: No Currently Using CPAP: No Cardiac: Yes (recent dx of afib during anesthesia on 09/15) Atrial Fibrillation, High Cholesterol, Hypertension Neurological: No Neuropathy Genitourinary: No Benign Prostatic Hyperpl Gastrointestinal: No Musculoskeletal: Yes Arthritis, Rheumatoid Arthritis, Chronic Back Pain Endocrine: No HEENT: Yes (cataracts removed, glasses) Cancer: Yes Skin Psychosocial: No Integumentary: No Blood Disorders: No Family Medical History Arthritis 19 MOTHER Asthma 19 FATHER Dementia 19 FATHER Hypertension 19 FATHER Myocardial infarction 19 FATHER Parkinson's disease 19 FATHER Hypertension Physical Exam Vital Signs Vital Signs - First Documented 08/17/23 01:25 Temp 36.7 Pulse 94 Resp 12 B/P (MAP) 166/65 (98) Pulse Ox 96 O2 Delivery Room Air Capillary Refill : Height, Weight, BMI Height: 5'8.00" Weight: 200lbs. 0.0oz. [id number]; 30.00 BMI Method: General Appearance: No Apparent Distress, WD/WN HEENT: PERRL/EOMI, Normal ENT Inspection Neck: Full Range of Motion, Normal Inspection, Non Tender, Supple Cardiovascular: No Edema, Irregularly Irregular (rate controlled) Respiratory: Chest Non Tender, Lungs Clear, Normal Breath Sounds, No Accessory Muscle Use Gastrointestinal: Normal Bowel Sounds, Non Tender, Soft Back: Normal Inspection, No CVA Tenderness, No Vertebral Tenderness Extremities: Inflammation (To right lateral upper thigh but no bruising since patient had amputation of the toes on the right lower extremity, there is swelling over the of the leg which stops mid thigh and then again swelling starts in the upper lateral right thigh), Other (All 5 right toes are amputated and dressing is on his right foot) Neurologic/Psychiatric: Alert, Oriented x3, No Motor/Sensory Deficits, Normal 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, 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 Norm as Tested Cranial Nerves: Normal Hearing, Normal Speech, PERRL Skin: Pallor Focused Exam Lactate Level 08/17/23 02:08: Lactic Acid Level 1.85 Lactic Acid Level Laboratory Tests Test 08/17/23 02:08 Lactic Acid Level 1.85 MMOL/L (0.50-2.00) Progress/Results/Core Measures Results/Orders Lab Results Laboratory Tests Test 08/17/23 01:25 08/17/23 02:08 08/17/23 03:35 Range/Units White Blood Count 9.6 4.3-11.0 10^3/uL Red Blood Count 3.16 L 4.30-5.52 10^6/uL Hemoglobin 8.0 L 13.3-17.7 g/dL Hematocrit 27 L 40-54 % Mean Corpuscular Volume 84 80-99 fL Mean Corpuscular Hemoglobin 25 25-34 pg Mean Corpuscular Hemoglobin Concent 30 L 32-36 g/dL Red Cell Distribution Width 15.1 H 10.0-14.5 % Platelet Count 221 130-400 10^3/uL Mean Platelet Volume 10.8 9.0-12.2 fL Immature Granulocyte % (Auto) 2 % Neutrophils (%) (Auto) 55 42-75 % Lymphocytes (%) (Auto) 31 12-44 % Monocytes (%) (Auto) 10 0-12 % Eosinophils (%) (Auto) 2 0-10 % Basophils (%) (Auto) 1 0-10 % Neutrophils # (Auto) 5.3 1.8-7.8 10^3/uL Lymphocytes # (Auto) 3.0 1.0-4.0 10^3/uL Monocytes # (Auto) 0.9 0.0-1.0 10^3/uL Eosinophils # (Auto) 0.2 0.0-0.3 10^3/uL Basophils # (Auto) 0.1 0.0-0.1 10^3/uL Immature Granulocyte # (Auto) 0.2 H 0.0-0.1 10^3/uL Sodium Level 140 135-145 MMOL/L Potassium Level 4.3 3.6-5.0 MMOL/L Chloride Level 102 98-107 MMOL/L Carbon Dioxide Level 25 21-32 MMOL/L Anion Gap 13 5-14 MMOL/L Blood Urea Nitrogen 21 H 7-18 MG/DL Creatinine 1.32 H 0.60-1.30 MG/DL Estimat Glomerular Filtration Rate 56 BUN/Creatinine Ratio 16 Glucose Level 148 H 70-105 MG/DL Calcium Level 8.6 8.5-10.1 MG/DL Corrected Calcium 9.0 8.5-10.1 MG/DL Magnesium Level 2.3 1.6-2.4 MG/DL Total Bilirubin 0.2 0.1-1.0 MG/DL Aspartate Amino Transf (AST/SGOT) 12 5-34 U/L Alanine Aminotransferase (ALT/SGPT) 10 0-55 U/L Alkaline Phosphatase 85 40-136 U/L Troponin I < 0.30 <0.30 NG/ML Total Protein 6.3 L 6.4-8.2 GM/DL Albumin 3.5 3.2-4.5 GM/DL Lactic Acid Level 1.85 0.50-2.00 MMOL/L Urine Color YELLOW Urine Clarity CLEAR Urine pH 6.0 5-9 Urine Specific Anderson 1.010 L 1.016-1.022 Urine Protein NEGATIVE NEGATIVE Urine Glucose (UA) NEGATIVE NEGATIVE Urine Ketones NEGATIVE NEGATIVE Urine Nitrite NEGATIVE NEGATIVE Urine Bilirubin NEGATIVE NEGATIVE Urine Urobilinogen 0.2 < = 1.0 MG/DL Urine Leukocyte Esterase NEGATIVE NEGATIVE Urine RBC (Auto) NEGATIVE NEGATIVE Urine RBC NONE /HPF Urine WBC 0-2 /HPF Urine Crystals NONE /LPF Urine Bacteria TRACE /HPF Urine Casts NONE /LPF Urine Mucus NEGATIVE /LPF Urine Culture Indicated NO My Orders Orders - JOSTIN ADDISON MD Ct Head Wo (08/17/23 01:35) Cbc And Automated Diff (08/17/23 01:36) Comprehensive Metabolic Panel (08/17/23 01:36) Lactic Acid Analyzer (08/17/23 01:36) Magnesium (08/17/23 01:36) Ua Culture If Indicated (08/17/23 01:36) Troponin I Fs (08/17/23 01:36) Continuous Ekg Monitoring (08/17/23 01:36) Ekg Tracing (08/17/23 01:36) Chest 1 View Ap/Pa Only (08/17/23 01:37) Femur 2 View Right (08/17/23 04:11) Vital Signs/I&O 08/17/23 01:25 Temp 36.7 Pulse 94 Resp 12 B/P (MAP) 166/65 (98) Pulse Ox 96 O2 Delivery Room Air Progress Progress Note : Progress Note 1. SYNCOPE: SLEEP WALKING - CT HEAD & C-SPINE: No acute findings - CXR: Unremarkable - CBC: normal WBC, Hb is 8.0 - CMP: unremarkable - Troponin: undetectable - UA:negative for infection - Follow up with PCP within the next 3 days -The patient was seen in the ED, and treated appropriately to presentation at a specific point in time. Patient is informed that there is a possibility that disease and illness can evolve and change in acuity rapidly or slowly after patient is discharged from the ER. Precautionary advice given to the patient for immediate return to ER if symptoms worsen or do not resolve, and to seek emergency care sooner rather than later. Pt also advised on the importance of PCP follow up and compliance with management and follow up plan with PCP and/or specialist, as this is part of the management plan. Pt verbally expressed unde rstanding. 2. LEFT THIGH SWELLING: - XR LEFT FEMUR/ HIP: no fracture - Likely from post surgery effect - Ice application advised - Pt is already on Lasix Departure Impression Primary Impression: Syncope and collapse Additional Impression: Sleepwalking Disposition: 01 HOME, SELF-CARE Condition: Stable Departure-Patient Inst. Referrals: RAFAT PINO MD (PCP) Primary Care Physician Patient Instructions: Syncope (Fainting) (DC), Tips for Getting Better Sleep Add. Discharge Instructions: - Follow up with PCP within the next 3 days All discharge instructions reviewed with patient and/or family. Voiced understanding. JOSTIN ADDISON MD Aug 17, 2023 01:58
[2023-08-17 02:03] LABS: BUN/CREATININE RATIO 16; CARBON DIOXIDE 25 MMOL/L (21-32); CHLORIDE 102 MMOL/L (98-107); CREATININE SERUM 1.32 MG/DL (0.60-1.30); GFR ESTIMATED 56; POTASSIUM 4.3 MMOL/L (3.6-5.0); SODIUM 140 MMOL/L (135-145)
[2023-08-17 02:04] LABS: ALANINE AMINOTRANSFERASE 10 U/L (0-55); ALBUMIN 3.5 GM/DL (3.2-4.5); ALKALINE PHOSPHATASE 85 U/L (40-136); BILIRUBIN,TOTAL 0.2 MG/DL (0.1-1.0); CALCIUM 8.6 MG/DL (8.5-10.1); GLUCOSE 148 MG/DL (70-105); MAGNESIUM 2.3 MG/DL (1.6-2.4); TOTAL PROTEIN 6.3 GM/DL (6.4-8.2)
[2023-08-17 03:41] LABS: BILIRUBIN,URINE NEGATIVE (NEGATIVE); CLARITY,URINE CLEAR; COLOR,URINE YELLOW; GLUCOSE, URINE (UA) NEGATIVE (NEGATIVE); KETONES,URINE NEGATIVE (NEGATIVE); LEUKOCYTE ESTERASE ,URINE NEGATIVE (NEGATIVE); NITRITE,URINE NEGATIVE (NEGATIVE); PROTEIN,URINE NEGATIVE (NEGATIVE)
[2023-08-17 03:44] LABS: BACTERIA,URINE TRACE /HPF; WBC,URINE 0-2 /HPF
[2023-08-17 05:25] VITALS: BP 144/76
--- NOTE | 2023-08-17 07:44 | Diagnostic Imaging Report ---
EXAMINATION: Right femur radiographs, 2 views, 4 images. COMPARISON: Pelvis and bilateral hip radiographs January 28, 2023. HISTORY: 77-year-old male, fall. Right femur pain. FINDINGS: There are prominent vascular calcifications. There are areas of degenerative type enthesopathy. The bones appear potentially demineralized. There is incompletely imaged hardware associated with the lumbosacral spine. There is no identified acute fracture. There is no cortical or aggressive bone destruction. There is no large right knee joint effusion. The right hip is not dislocated. IMPRESSION: 1. No identified acute bony abnormality of the right femur. Dictated by: Dictated on workstation # [id number]
--- NOTE | 2023-08-17 07:47 | Diagnostic Imaging Report ---
PROCEDURE: CT head without contrast. TECHNIQUE: Multiple contiguous axial images were obtained through the brain without the use of intravenous contrast. Auto Exposure Controls were utilized during the CT exam to meet ALARA standards for radiation dose reduction. DATE: August 17, 2023. COMPARISON: None. INDICATION: 77-year-old male, fall, syncope. FINDINGS: There is complete opacification of left maxillary sinus. There is opacification in the left frontal sinus and bilateral ethmoidal air cells as well. There is nonspecific opacification in the mastoid air cells bilaterally without loss of mastoid air cell septa. There is also nonspecific opacification in the left middle ear. The ventricles and additional CSF spaces are normal in size and configuration for patient age. There is no identified abnormal extra-axial fluid collection. There is no evidence of acute intracranial hemorrhage. There is no mass effect or midline shift. IMPRESSION: 1. No identified acute intracranial abnormality. 2. Nonspecific paranasal sinus opacification. 3. Nonspecific opacification in the mastoid air cells bilaterally without loss of mastoid air cell septa to suggest coalescent mastoiditis. 4. Nonspecific opacification in the left middle ear. Dictated by: Dictated on workstation # [id number]
--- NOTE | 2023-08-17 07:47 | Diagnostic Imaging Report ---
EXAMINATION: Chest radiograph, portable AP view. DATE: 08/17/2023 2:48 AM INDICATION: 77-year-old male, syncope. COMPARISON: April 19, 2023. FINDINGS: Heart size and mediastinal contours are grossly unchanged. There is no identified pneumothorax. There is no large pleural effusion. There is no identified focal airspace consolidation. There are advanced right acromio clavicular degenerative changes. IMPRESSION: 1. No identified acute cardiopulmonary abnormality. Dictated by: Dictated on workstation # [id number]
== END 2023-08-17 05:25 | disposition home or self-care (01) ==
LOC: EDUNIT# 01:29 → ER FS 01:31
DX: R55 Syncope and collapse (principal); F51.3 Sleepwalking [somnambulism]; I48.0 Paroxysmal atrial fibrillation; I45.10 Unspecified right bundle-branch block; Z79.01 Long term (current) use of anticoagulants; Z86.16 Personal history of COVID-19; W18.30XA Fall on same level, unspecified, initial encounter
CPT/HCPCS: 36415; 70450; 71045; 73552; 80053; 81000; 83605; 83735; 84484; 85025; 93005